=== PATIENT | male | born 1940 | race Caucasian/White ===

== ENCOUNTER 2016-10-04 05:16 | Day surgery (SDC) | payer MEDICARE ==
[2016-10-04] VITALS (28 sets, daily range): BP systolic 115–170; BP diastolic 51–80; PULSE 50–76; RESP 10–18; Ht 165.1 cm; Wt 63.6 kg
[~2016-10-04] VITALS: Ht 165.1 cm; Wt 63.6 kg
[~2016-10-04 05:16] MED LIST: ASPI-535 PO; FENO160T13 PO; TERA10CA42 PO
[2016-10-04] MEDS ORDERED: SOD CHLORIDE 0.9% 1,000 ML IV SCH ×2 (06:00→08:10)
[2016-10-04] MEDS ORDERED: IODIXANOL LOCM 100 ML BTL ONE (06:11)
[2016-10-04] MEDS ORDERED: LIDOCAINE 1% (MDV) 20 ML INJ ONE (06:11)
[2016-10-04] MEDS ORDERED: MIDAZOLAM 1 MG/ML 2 ML INJ ONE (06:12)
[2016-10-04] MEDS ORDERED: FENTAnyl 50 MCG/ML VIAL ONE (06:13)
[2016-10-04] MEDS ORDERED: NIAC500T81 PO (06:14)
[2016-10-04] MEDS ORDERED: PANT40TA4 PO (06:14)
[2016-10-04] MEDS ORDERED: OMEG-124 PO (06:14)
[2016-10-04] MEDS ORDERED: METO-448 PO (06:14)
[2016-10-04] MEDS ORDERED: LEVO88TA PO (06:14)
[2016-10-04 06:17] LABS: ADD SCAN DIFF NO
[2016-10-04 06:20] LABS: BASOPHILS % 0.4 % (0.0-2.0); EOSINOPHILS # 0.2 10^3/ul (0.0-0.5); EOSINOPHILS % 3.6 % (0.0-7.0); HEMATOCRIT 41.9 % (42.0-52.0); HEMOGLOBIN 14.2 g/dl (14.0-18.0); LYMPHOCYTES # 2.3 10^3/ul (0.8-2.9); LYMPHOCYTES % 34.3 % (15.0-51.0); MEAN CORPUSCULAR HEMOGLOBIN 30.9 pg (29.0-33.0); MEAN CORPUSCULAR HGB CONC 33.9 g/dl (32.0-37.0); MEAN CORPUSCULAR VOLUME 91.1 fl (82.0-101.0); MEAN PLATELET VOLUME 11.7 fl (7.4-10.4); MONOCYTE # 0.4 10^3/ul (0.3-0.9); MONOCYTES % 5.2 % (0.0-11.0); NEUTROPHIL # 3.8 10^3/ul (1.6-7.5); NEUTROPHILS % 56.4 % (39.0-77.0); PLATELET COUNT 142 10^3/UL (140-415); RED CELL DISTRIBUTION WIDTH 13.4 % (11.5-14.5); WHITE BLOOD COUNT 6.8 10^3/ul (4.8-10.8)
[2016-10-04 06:38] LABS: INR 1.05; PROTIME 13.7 Sec (12.2-14.2); PT RATIO 1.1
[2016-10-04 06:39] LABS: PARTIAL THROMBOPLASTIN TIME 29.5 Sec (25.0-35.0)
[2016-10-04 06:51] LABS: POTASSIUM 3.6 mmol/L (3.5-5.1)
[2016-10-04 06:52] LABS: CALCIUM 8.9 mg/dl (8.4-10.2); CREATININE 0.68 mg/dl (0.61-1.24)
[2016-10-04 07:52] LABS: CHOL/HDL RATIO 5.7 RATIO
[2016-10-04] MEDS ORDERED: ACETAMINOPHEN 325 MG TAB PO PRN (08:30)
[2016-10-04] MEDS ORDERED: ONDANSETRON 4 MG INJ IV PRN (08:30)
[2016-10-04] MEDS ORDERED: morphine 2 MG INJ IV PRN (08:30)
[2016-10-04] MEDS ORDERED: REGADENOSON 0.4 MG/5 ML SYG ONE (12:43)
--- NOTE | 2016-10-04 15:06 | CONS ---
Date/Time of Note Date/Time of Note DATE: 10/04/16 TIME: 15:03 Assessment/Plan Assessment/Plan Chief Complaint/Hosp Course Peripheral vascular disease Problems: Additional Assessment/Plan Patient has peripheral vascular disease with claudication of the right lower extremity patient has severe superficial femoral artery stenosis/occlusion bilaterally to be needing femoral-popliteal/pedal bypass grafting after cardiology clearance discussed with Dr. Salazar that will follow up as an outpatient Consultation Date/Type/Reason Admit Date/Time Date of Consultation: Oct 04, 2016 Hx of Present Illness This is a 75-year-old male with a history of peripheral vascular disease diabetes complaining of claudication in the right calf for walking after 1 block Respiratory: no complaints Cardiovascular: no complaints Gastrointestinal: no complaints Genitourinary: no complaints Musculoskeletal: no complaints Skin: no complaints Past Medical History Medical History: coronary artery disease, diabetes Family History Significant Family History: heart disease, COPD, diabetes Social History Alcohol Use: none Smoking Status: Never smoker Drug Use: none Exam/Review of Systems Vital Signs Vitals Vital Signs Date Time Temp Pulse Resp B/P Pulse Ox O2 Delivery O2 Flow Rate FiO2 10/04/16 14:05 97.9 76 18 170/74 99 Room Air Exam Eyes: EOMI, PERRL, nl conjunctiva, nl lids, nl sclera ENMT: nl external ears & nose, nl lips & teeth, nl nasal mucosa & septum Neck: non-tender, supple Respiratory: clear to auscultation, normal air movement Cardiovascular: nl pulses, regular rate and rhythm Gastrointestinal: nl liver, spleen, non-tender, soft Additional Comments Patient has femoral pulses bilaterally no popliteal or pedal pulses palpable Results Result Diagram: 10/04/16 0605 10/04/16 0605 Results 24 hrs Laboratory Tests Test 10/04/16 06:05 White Blood Count 6.8 Red Blood Count 4.60 L Hemoglobin 14.2 Hematocrit 41.9 L Mean Corpuscular Volume 91.1 Mean Corpuscular Hemoglobin 30.9 Mean Corpuscular Hemoglobin Concent 33.9 Red Cell Distribution Width 13.4 Platelet Count 142 Mean Platelet Volume 11.7 H Neutrophils % 56.4 Lymphocytes % 34.3 Monocytes % 5.2 Eosinophils % 3.6 Basophils % 0.4 Nucleated Red Blood Cells % 0.0 Neutrophils # 3.8 Lymphocytes # 2.3 Monocytes # 0.4 Eosinophils # 0.2 Basophils # 0.0 Nucleated Red Blood Cells # 0.0 Prothrombin Time 13.7 Prothrombin Time Ratio 1.1 INR International Normalized Ratio 1.05 Activated Partial Thromboplast Time 29.5 Sodium Level 147 H Potassium Level 3.6 Chloride Level 106 Carbon Dioxide Level 27 Anion Gap 18 H Blood Urea Nitrogen 21 H Creatinine 0.68 Glucose Level 95 Calcium Level 8.9 Triglycerides Level 111 Cholesterol Level 200 LDL Cholesterol, Calculated 143 HDL Cholesterol 35 Cholesterol/HDL Ratio 5.7 Medications Medications Current Medications Acetaminophen (Tylenol Tab) 650 mg Q4H PRN PO NON-CARDIAC PAIN LEVEL (1-3); Start 10/04/16 at 08:30 Morphine Sulfate (morphine) 2 mg Q2H PRN IV FOR NON CARDIAC PAIN (4-10); Start 10/04/16 at 08:30 Ondansetron HCl (Zofran Inj) 4 mg Q4H PRN IV NAUSEA AND/OR VOMITING; Start at 08:30 ISACC JAMES MD Oct 04, 2016 15:06
--- NOTE | 2016-10-04 16:13 | RADRPT ---
PROCEDURE: Lexiscan myocardial perfusion study CLINICAL INDICATION: 75 -year-old patient complaining of chest pain. TECHNIQUE: Lexiscan 0.4 mg intravenously separate acquisition gated myocardial perfusion SPECT usi ng Tc 99m Myoview 30.2 mCi intravenously at stress and Tc-99m Myoview, 10.4 mCi intravenously at res t was performed using the rest/stress sequence. Poststress Myoview SPECT images were obtained in th e supine position. COMPARISON: No prior studies. FINDINGS: Perfusion images reveal a small to moderate size moderate in degree nonreversible perfusion defect i n the inferoapical and inferior blank. There is no evidence of stress-induced ischemia. Lexiscan post stress gated SPECT images demonstrate no wall motion abnormalities. IMPRESSION: 1. The type and distribution of the scintigraphic abnormalities are most consistent with a small to moderate-sized nonreversible perfusion defect in the inferoapical and inferior blank. 2. No wall motion abnormalities. 3. The left ventricle ejection fraction at stress is greater than 70%. A call report was made to Dr. Salazar at 04:10 p.m. on October 04, 2016. RPTAT: HH .Jessi Ariza MD, MD Date Time Electronically viewed and signed by .Jessi Ariza MD, MD on 10/04/2016 16:13 .L/
--- NOTE | 2016-10-12 06:08 | OPR ---
DATE OF OPERATION: 10/04/2016 PROCEDURE PERFORMED: 1. Left femoral artery catheter placement. 2. Left femoral angiogram. 3. Bilateral lower extremity angiogram and runoff. 4. Right femoral angiogram. 5. Conscious sedation for more than 60 minutes. SURGEON: Chele Salazar MD INDICATIONS: This is a pleasant 75-year-old gentleman with known peripheral vascular disease who presented with severe claudication. The patient was advised to undergo bilateral lower extremity angiogram and possible intervention. OPERATIVE FINDINGS AT SURGERY: 1. Left iliac artery has about 40 percent stenosis. 2. Left SFA has a long area of complete occlusion with collaterals to it. 3. A 1-2 vessel runoff is noted below the knee. 4. Right iliac artery appeared to be patent. 5. Right SFA is 100 percent occluded with a long lesion, reconstituted above the knee. This appeared to be 2-vessel runoff noted throughout the leg with probably 90 percent stenosis noted in the posterior tibial. DESCRIPTION OF PROCEDURE: Informed consent was obtained after risks and benefits discussed with the patient. The risks and benefit include infection, vascular complications, bleeding complications discussed with the patient along with the risk of left femoral artery. Left femoral angiogram was performed. Then the Omniflush was advanced to the abdominal aorta. Through that, bilateral lower extremity runoff was obtained. Then we used a trauma wire Omniflush which was advanced from the left into the right iliac artery. Angiograms of iliac artery and femoral artery with lower extremity runoff was obtained. The catheters were removed. the patient tolerated the procedure without complication. The patient was transferred to the recovery room in stable condition. COMPLICATIONS: None. IMPRESSION: Bilateral superificial femoral artery complete occlusion. Recommend vascular surgery evaluation for open revascularization. Dictated By: Chele Salazar MD /oscar/lilibeth /Document#: [id number]
== END 2016-10-04 16:05 | disposition home or self-care (01) ==
LOC: SDS 05:16
PROVIDERS: ATTEND Internal Medicine Interventional Cardiology
DX: I73.9 Peripheral vascular disease, unspecified (principal); I10 Essential (primary) hypertension; E78.5 Hyperlipidemia, unspecified; Z79.82 Long term (current) use of aspirin
CPT/HCPCS: 36245; 75630; 78452; 80048; 80061; 85025; 85610; 85730; 93017; A9500; A9505; C1769; C1887; C1894; J1644; J2250; J2785; J3010; Q9967

== ENCOUNTER 2016-11-13 11:00 | Inpatient (IN) | payer MEDICARE ==
[~2016-11-13] VITALS: Ht 167.6 cm; Wt 65.0 kg
[2016-11-13] VITALS (20 sets, daily range): BP systolic 122–173; BP diastolic 52–130; PULSE 61–83; RESP 15–24; TEMP 98.5; Ht 167.6 cm; Wt 65.0 kg
[~2016-11-13 11:00] MED LIST changes: +LEVO88TA PO; +METO-448 PO; +NIAC500T81 PO; +OMEG-124 PO; +PANT40TA4 PO
--- NOTE | 2016-11-13 11:23 | RADRPT ---
PROCEDURE: CT head without intravenous contrast CLINICAL INDICATION: Stroke. Right-sided dysarthria and facial droop. COMPARISON: None relevant listed. TECHNIQUE: Axial CT images from skull base to vertex with coronal and sagittal reformats. DOSE: The estimated administered radiation dose was CTDI vol = 43 mGy. DLP = 720 mGy-cm. One or mor e of the following dose reduction techniques were used: automated exposure control, adjustment of th e mA and/or kV according to patient size, or use of iterative reconstruction. FINDINGS: Parenchyma: No acute hemorrhage, large territorial infarction, or mass. Old appearing hypodensity wi thin the posterior limb right external capsule/anterior thalamus. Mild amount of periventricular and subcortical white matter hypodensity, a nonspecific finding often associated with chronic microangi opathy. Ventricles: No ventriculomegaly or ventricular effacement. Extra-axial spaces: No herniation or midline shift. Paranasal sinuses: Clear. Mastoids and middle ears: Clear. Visualized orbits: Normal. Vessels: Mild calcified atherosclerotic arterial plaque. Bones: Normal. Extracranial soft tissues: Normal. Additional comment: None. IMPRESSION: 1. No acute hemorrhage or large territorial infarction identified. 2. Old lacunar infarction involving the posterior limb of the right internal capsule. If there is high clinical suspicion for acute infarction, MRI is recommended for further evaluation because it is a more sensitive examination. Jason Chavez M.D. discussed findings with RAF PERRY M.D. via telephone at 11:22 AM on 11/14/19 17 with read back confirmation. RPTAT: PP Physician Ivana Date Time Electronically viewed and signed by Physician Ivana on 11/13/2016 11:23 /
[2016-11-13 11:28] LABS: BASOPHILS % 0.3 % (0.0-2.0); EOSINOPHILS # 0.1 10^3/ul (0.0-0.5); EOSINOPHILS % 0.8 % (0.0-7.0); HEMATOCRIT 42.6 % (42.0-52.0); LYMPHOCYTES # 1.2 10^3/ul (0.8-2.9); LYMPHOCYTES % 13.5 % (15.0-51.0); MEAN CORPUSCULAR HEMOGLOBIN 31.4 pg (29.0-33.0); MEAN CORPUSCULAR HGB CONC 35.2 g/dl (32.0-37.0); MEAN CORPUSCULAR VOLUME 89.3 fl (82.0-101.0); MEAN PLATELET VOLUME 11.1 fl (7.4-10.4); MONOCYTE # 0.2 10^3/ul (0.3-0.9); MONOCYTES % 2.6 % (0.0-11.0); NEUTROPHILS % 82.3 % (39.0-77.0); PLATELET COUNT 151 10^3/UL (140-415); RED BLOOD COUNT 4.77 10^6/ul (4.70-6.10); RED CELL DISTRIBUTION WIDTH 13.2 % (11.5-14.5); WHITE BLOOD COUNT 8.7 10^3/ul (4.8-10.8)
--- NOTE | 2016-11-13 11:34 | ERA ---
ER Documentation Chief Complaint Date/Time DATE: 11/13/16 TIME: 11:16 Chief Complaint WALKED IN TRIAGE WITH RT SIDE WEAKNESS LAST WELL TIME 1 1/2 HOUR MEDICAL RECORDS CUSTODIAN HPI This is a 76-year-old male with a history of hypertension on blood pressure medications and aspirin who is presenting with concerns of a stroke. Approximately 1-1/2 hours ago, the patient developed a right-sided facial droop , mild dysarthria and decreased sensation to the right face and right arm. The patient feels like he is unable to control his right arm and that it is weaker. The patient denies any symptoms to the left side of his body. He does not have any symptoms in his right leg. The patient is alert and oriented 4. He does not have a history of heart attack or stroke. ROS All systems reviewed and are negative except as per history of present illness. Medications Home Meds Reported Medications Levothyroxine Sodium* (Levothyroxine Sodium*) 88 Mcg Tablet, 88 MCG PO BEFORE BREAKFAST, #30 TAB 11/13/16 Atorvastatin* (Atorvastatin*) 40 Mg Tablet, 40 MG PO QHS, #30 TAB 11/13/16 Finasteride* (Finasteride*) 5 Mg Tablet, 5 MG PO DAILY, TAB 11/13/16 Allopurinol* (Allopurinol*) 100 Mg Tablet, 100 MG PO BID, TAB 11/13/16 Herreid-3 Fatty Acids/Fish Oil (Fish Oil Conc 1,000 mg Softgel) 1 Each Capsule, 1 EACH PO DAILY, CAP 11/13/16 Pantoprazole (Protonix) 40 Mg Tabec, 40 MG PO BID, TAB 10/04/16 Niacin* (Niacin*) 500 Mg Tablet, 500 MG PO DAILY, TAB 10/04/16 Metoprolol Tartrate* (Lopressor*) 25 Mg Tab, 25 MG PO BID, #60 TAB 10/04/16 Aspirin Ec (Aspir 81) 81 Mg Tablet.dr, 81 MG PO DAILY 08/05/11 Discontinued Reported Medications Herreid-3S/Dha/Epa/Fish Oil (Fish Oil 1,200 mg Softgel) 1 Each Capsule, 1 EACH PO , CAP 10/04/16 Terazosin Hcl* (Terazosin Hcl*) 10 Mg Capsule, 10 MG PO BID 08/05/11 Fenofibrate, Micronized* (Fenofibrate*) 160 Mg Tablet, 160 MG PO DAILY 08/05/11 Allergies Allergies: Coded Allergies: Sulfa (Sulfonamide Antibiotics) (Verified Allergy, Unknown, 10/04/16) PMhx/Soc History of Surgery: Yes (lt eye surgery 50 yrs. ago, prostate surgery,lt elbow surgery) Anesthesia Reaction: No Hx Neurological Disorder: No Hx Respiratory Disorders: No Hx Cardiac Disorders: Yes (HTN) Hx Psychiatric Problems: No Hx Miscellaneous Medical Probl: Yes (claudication lower extremities) Hx Alcohol Use: No Hx Substance Use: No Hx Tobacco Use: No FmHx Family History: No diabetes Physical Exam Vitals Vital Signs Date Time Temp Pulse Resp B/P Pulse Ox O2 Delivery O2 Flow Rate FiO2 11/13/16 14:30 80 20 150/75 100 Nasal Cannula 2.0 11/13/16 14:15 78 20 161/60 100 Nasal Cannula 2.0 11/13/16 14:00 76 20 154/63 100 Nasal Cannula 2.0 11/13/16 13:45 66 16 143/55 100 Nasal Cannula 2.0 11/13/16 13:35 74 16 150/65 100 Nasal Cannula 2.0 11/13/16 13:15 88 20 148/82 100 Nasal Cannula 2.0 11/13/16 13:00 85 20 144/64 100 Nasal Cannula 2.0 11/13/16 12:45 70 22 149/82 100 Nasal Cannula 2.0 11/13/16 12:30 76 18 155/62 99 Room Air 11/13/16 12:15 77 18 153/61 99 Room Air 11/13/16 12:00 74 18 145/60 99 Room Air 11/13/16 11:58 78 16 148/63 99 Room Air 11/13/16 11:23 96 16 185/66 99 Room Air 11/13/16 11:09 106 16 185/66 100 Physical Exam Const: No apparent distress Head: Atraumatic Eyes: Normal Conjunctiva ENT: Normal External Ears, Nose and Mouth. Neck: Full range of motion..~ No meningismus. Resp: Clear to auscultation bilaterally Cardio: Regular rate and rhythm, no murmurs Abd: Soft, non tender, non distended. Normal bowel sounds Skin: No petechiae or rashes Back: No midline or flank tenderness Ext: No cyanosis, or edema Neur: Awake and alert,Oriented 4, mild dysarthria, mild loss of right nasolabial fold, decreased sensation to the right arm, dysdidokinesis ( inability to perform [id number] on right), difficulty following commands with the right arm but intermittently will exhibit 5 out of 5 strength. Neurovascularly intact in all other extremities, able to identify objects, drift to the right arm, neglect to RUE Psych: Normal Mood and Affect Result Diagram: 11/13/16 1100 11/13/16 1100 Results 24 hrs Laboratory Tests Test 11/13/16 11:00 White Blood Count 8.710^3/ul Red Blood Count 4.7710^6/ul Hemoglobin 15.0g/dl Hematocrit 42.6% Mean Corpuscular Volume 89.3fl Mean Corpuscular Hemoglobin 31.4pg Mean Corpuscular Hemoglobin Concent 35.2g/dl Red Cell Distribution Width 13.2% Platelet Count 87446^3/UL Mean Platelet Volume 11.1fl Neutrophils % 82.3% Lymphocytes % 13.5% Monocytes % 2.6% Eosinophils % 0.8% Basophils % 0.3% Nucleated Red Blood Cells % 0.0/100WBC Neutrophils # (Manual) 7.210^3/ul Lymphocytes # 1.210^3/ul Monocytes # 0.210^3/ul Eosinophils # 0.110^3/ul Basophils # 0.010^3/ul Nucleated Red Blood Cells # 0.010^3/ul Prothrombin Time 13.6Sec Prothrombin Time Ratio 1.1 INR International Normalized Ratio 1.04 Activated Partial Thromboplast Time 28.5Sec Sodium Level 146mmol/L Potassium Level 3.8mmol/L Chloride Level 105mmol/L Carbon Dioxide Level 24mmol/L Anion Gap 21 Blood Urea Nitrogen 12mg/dl Creatinine 0.65mg/dl Glucose Level 149mg/dl Hemoglobin A1c 5.6% Calcium Level 9.1mg/dl Troponin I < 0.012ng/ml Current Medications Medications (Trade) Dose Ordered Sig/Mac Route PRN Reason Start Time Stop Time Status Last Admin Dose Admin Alteplase, Recombinant (Activase) 5.5 mg BOLUS OVER 1 MIN ONCE IV* 11/13/16 14:30 11/13/16 14:31 DC 11/13/16 11:58 Alteplase, Recombinant 49.5 mg 49.5 mg ISCHEMIC STROKE ONCE IV* 11/13/16 14:30 11/13/16 14:31 DC 11/13/16 11:59 Sodium Chloride (NS) 50 ml @ 0 mls/hr FLUSH AFTER TPA ONCE IV 11/13/16 14:30 11/13/16 14:31 DC Procedures/MDM The patient's presenting with concerns of a stroke. I initially gave his NIH stroke scale at 6. A code stroke was called and the patient was emergently taken to the CAT scan. The neuroradiologist called me and reported an old lacunar infarct on the right side but no obvious infarction on the left. The report is as follows: PROCEDURE: CT head without intravenous contrast CLINICAL INDICATION: Stroke. Right-sided dysarthria and facial droop. COMPARISON: None relevant listed. FINDINGS: Parenchyma: No acute hemorrhage, large territorial infarction, or mass. Old appearing hypodensity within the posterior limb right external capsule/anterior thalamus. Mild amount of periventricular and subcortical white matter hypodensity, a nonspecific finding often associated with chronic microangiopathy. Ventricles: No ventriculomegaly or ventricular effacement. Extra-axial spaces: No herniation or midline shift. Paranasal sinuses: Clear. Mastoids and middle ears: Clear. Visualized orbits: Normal. Vessels: Mild calcified atherosclerotic arterial plaque. Bones: Normal. Extracranial soft tissues: Normal. Additional comment: None. IMPRESSION: 1. No acute hemorrhage or large territorial infarction identified. 2. Old lacunar infarction involving the posterior limb of the right internal capsule. Jason Chavez M.D. discussed findings with RAF PERRY M.D. via telephone at 11:22 AM on 11/13/2016 with read back confirmation. Physician Ivana Date Time Electronically viewed and signed by Physician Ivana on 11/13/2016 11: 23 Neurology was consulted to evaluate the patient. Through a tele-neurology consult, he feels that the NIH stroke scale is at 7 and that he is a TPA candidate based on his history and presentation. The patient was consented for TPA and it was initiated. The patient's blood work was obtained and reviewed. The patient's CBC, BMP, troponin, hemoglobin A1c and coags are unremarkable. EKG read by me: Rate/Rhythm: Regular rate and rhythm at a rate of 98 Intervals: Normal [place]: Normal Impression: No evidence of ischemia or arrhythmia. Normal EKG The patient's chest x-ray revealed the following: PROCEDURE: Chest radiograph CLINICAL INDICATION: Possible Stroke. COMPARISON: None relevant listed. TECHNIQUE: Single frontal chest radiograph. FINDINGS: The lungs are clear. No pleural effusion or focal parenchymal opacity. The cardiomediastinal silhouette is normal. No suspicious bone lesion. IMPRESSION: No acute cardiopulmonary abnormality. Physician Ivana Date Time Electronically viewed and signed by Physician Ivana on 11/13/2016 12: 52 The patient's blood pressure was initially 185/66. There was recycled with a systolic blood pressure in the 160 range. I do not feel that he requires emergent blood pressure management at this time. During evaluation, the patient's dysarthria and numbness did start to get worse. The patient's TPA was stopped and a repeat CT was obtained that did not reveal any significant changes. The TPA was resumed to completion. The patient 's symptoms actually started to improve and the emergency department The patient will require ICU admission for further evaluation and management, which will include serial neuro checks and further imaging studies. The patient will be admitted to the hospitalist service for further evaluation and management. An MRI will likely be required during inpatient evaluation. In discussion with the neurologist multiple times, there is no indication to get it emergently completed in the emergency department, but it should be done in the hospital. Departure Diagnosis: Primary Impression: CVA (cerebral vascular accident) Qualified Code: I63.9 - Cerebrovascular accident (CVA), unspecified mechanism Additional Impressions: Right arm weakness Dysdiadochokinesis on examination Condition: Serious RAF PERRY MD Nov 13, 2016 11:29
[2016-11-13 12:00] LABS: ANION GAP 21 (8-16); BLOOD UREA NITROGEN 12 mg/dl (7-20); CALCIUM 9.1 mg/dl (8.4-10.2); CARBON DIOXIDE 24 mmol/L (21-31); CHLORIDE 105 mmol/L (97-110); CREATININE 0.65 mg/dl (0.61-1.24); GLUCOSE 149 mg/dl (70-220); POTASSIUM 3.8 mmol/L (3.5-5.1); SODIUM 146 mmol/L (135-144)
[2016-11-13 12:04] LABS: INR 1.04; PROTIME 13.6 Sec (12.2-14.2); PT RATIO 1.1
[2016-11-13 12:05] LABS: PARTIAL THROMBOPLASTIN TIME 28.5 Sec (25.0-35.0)
[2016-11-13 12:23] LABS: TROPONIN-I < 0.012 ng/ml (0.00-0.12)
[2016-11-13] MEDS ORDERED: OMEG1CAP22 PO (12:47)
[2016-11-13] MEDS ORDERED: ALLO100T PO (12:48)
[2016-11-13] MEDS ORDERED: FINA5TAB4 PO (12:48)
[2016-11-13] MEDS ORDERED: ATOR40TA68 PO (12:49)
[2016-11-13] MEDS ORDERED: LEVO88TA3 PO (12:49)
--- NOTE | 2016-11-13 12:53 | RADRPT ---
PROCEDURE: Chest radiograph CLINICAL INDICATION: Possible Stroke. COMPARISON: None relevant listed. TECHNIQUE: Single frontal chest radiograph. FINDINGS: The lungs are clear. No pleural effusion or focal parenchymal opacity. The cardiomediastinal silhouette is normal. No suspicious bone lesion. IMPRESSION: No acute cardiopulmonary abnormality. RPTAT: HLG Physician Ivana Date Time Electronically viewed and signed by Jourdan Chavez Physician on 11/13/2016 12:52 LG/
--- NOTE | 2016-11-13 13:35 | RADRPT ---
PROCEDURE: CT brain without contrast CLINICAL INDICATION: Stroke, post t-PA TECHNIQUE: CT of the brain without contrast performed on a multidetector CT scanner, with multiplan ar reformats. One or more of the following dose reduction techniques were used: Automated exposure control, adjustment in mA and / or kV according to patient size, use of iterative reconstructive luca hnique. CTDIvol = 42 mGy; DLP = 720 mGy-cm. COMPARISON: CT brain 11/13/2016 FINDINGS: No acute intracranial hemorrhage is identified. No extra-axial fluid collection is seen. There is no mass effect. No midline shift is identified. The ventricles and sulci are mildly enlarged compatible with volume loss. Chronic appearing lacunar infarct is again identified at the posterior limb of the right internal ca psule/thalamus. There are mild areas of hypodensity in the periventricular - deep white matter whic h are nonspecific but suggestive of chronic small vessel ischemic changes. Allen-white differentiati on is otherwise grossly preserved. Atherosclerotic calcifications of the proximal intracranial arteries are noted. Osseous structures are unremarkable. Mastoid air cells and imaged paranasal sinuses grossly clear. IMPRESSION: 1. No acute intracranial pathology identified. Consider follow up with MRI. 2. Chronic-appearing posterior limb of right internal capsule/thalamic lacunar infarct. 3. Mild volume loss, with mild chronic small vessel ischemic changes. RPTAT: HH .Fransisco Rosenbaum MD, MD Date Time Electronically viewed and signed by .Fransisco Rosenbaum MD, MD on 11/13/2016 13:35 .O/
[2016-11-13] MEDS ORDERED: ALTEPLASE (tPA) 1 MG/ML BOLUS SYG IV* ONE (14:30)
[2016-11-13] MEDS ORDERED: SOD CHLORIDE 0.9% 50 ML IV ONE (14:30)
[2016-11-13] MEDS ORDERED: ALTEPLASE 100 MG INJ IV* ONE (14:30)
[2016-11-13] MEDS ORDERED: ACETAMINOPHEN 325 MG TAB PO PRN (15:30)
[2016-11-13 15:44] LABS: ADD UMIC NO; UR ASCORBIC ACID NEGATIVE (NEGATIVE); UR BILIRUBIN (Dip) NEGATIVE (NEGATIVE); UR BLOOD (Dip) NEGATIVE (NEGATIVE); UR CLARITY CLEAR (CLEAR); UR COLOR YELLOW (YELLOW); UR GLUCOSE (Dip) NEGATIVE (NEGATIVE); UR KETONES (Dip) 1+ mg/dL (NEGATIVE); UR LEUKOCYTE ESTERASE (Dip) NEGATIVE Leu/ul (NEGATIVE); UR NITRITE (Dip) NEGATIVE (NEGATIVE); UR SPECIFIC GRAVITY (Dip) 1.013 (1.003-1.030); UR TOTAL PROTEIN (Dip) NEGATIVE (NEGATIVE); UR UROBILINOGEN (Dip) NEGATIVE (NEGATIVE)
[2016-11-13 16:05] LABS: BARBITURATES Negative (NEGATIVE); BENZODIAZEPINES Negative (NEGATIVE); CANNABINOIDS Negative (NEGATIVE); COCAINE Negative (NEGATIVE); OPIATES Negative (NEGATIVE)
--- NOTE | 2016-11-13 16:33 | RADRPT ---
PROCEDURE: MRI Brain without contrast. CLINICAL INDICATION: Stroke status post t-PA TECHNIQUE: An MRI of the brain was performed on a high resolution hi-definition MRI scanner utiliz ing the following sequences: Sagittal and axial T1 weighted, axial T2 weighted, axial T2 FLAIR axial diffusion weighted with ADC mapping, and coronal GRE. COMPARISON: CT brain 11/13/2016 FINDINGS: The scalp and calvarium are normal. The bilateral orbits are normal. The bilateral paranasal sinuse s are remarkable for mild chronic bilateral ethmoid and maxillary sinus disease. Incomplete pneumat ization of the bilateral mastoid air cells are noted. The bilateral middle ear cavities appear mary jane r. Restricted diffusion is noted in the left thalamus, left thalami capsular junction, and the left occ ipital lobe with involvement of the left para hippocampal gyrus. This is compatible with an acute h emorrhagic infarct. No evidence for hypointensity on GRE sequences are noted to suggest hemorrhage o r hemoglobin degradation by-products. The ventricles sulci and cisterns are age appropriate compatible with mild chronic microvascular isc hemic disease. On the FLAIR and T2-weighted sequences, punctate foci of hyperintensity are present in the bilateral centrum semiovale, bilateral periventricular white matter, bilateral thalami compat ible with mild chronic microvascular ischemic disease and chronic bilateral thalamic lacunar infarct s superimposed on above described acute infarcts. signal abnormalities are seen on the GRE images t o suggest the presence of blood degradation products. Normal flow voids are visible in the proxi mal intracranial arteries and dural sinuses, indicating patency. IMPRESSION: 1. Acute non hemorrhagic infarcts in the left thalamus, left thalami capsular junction, left occipit al lobe and para hippocampal gyrus. 2. Chronic bilateral thalamic lacunar infarcts and chronic mild microvascular ischemic disease 3. Mild diffuse volume loss. 4. Mild chronic bilateral ethmoid maxillary sinus disease. A call report was made to ER Dr. Cholo Chang at 11/13/2016 4:31:21 PM following the completion of th e examination by the undersigned. RPTAT: HDC .Lorraine Babin MD, Date Time Electronically viewed and signed by .Lorraine Babin MD, on 11/13/2016 16:33 .C/
--- NOTE | 2016-11-13 16:36 | EN ---
Date/Time of Note Date/Time of Note DATE: 11/13/16 TIME: 16:35 ER Progress Note The patient had an MRI in the emergency department while he was waiting for an ICU bed. The neuroradiologist called the emergency department and informed us that he has an acute left thalamic and left occipital nonhemorrhagic infarct. This study was performed status post TPA. The hospitalist was informed of this information. RAF PERRY MD Nov 13, 2016 16:36
--- NOTE | 2016-11-13 16:40 | RADRPT ---
PROCEDURE: MRA Brain. CLINICAL INDICATION: Stroke status post t-PA TECHNIQUE: An MRA of the brain was performed on a GE blinkbox music-definition 3.0 ryan scanner 3-D time-of-f light MR angiography technique. Source and MIP images were reviewed. COMPARISON: Brain CT dated 11/13/2016 and brain MRI same date FINDINGS: The internal carotid arteries are patent and normal in caliber. The middle cerebral and the anterio r cerebral arteries are also patent and normal in caliber with no significant luminal irregularity o r narrowing identified. The vertebral arteries, basilar artery, and superior cerebellar arteries ar e visualized and normal in appearance. The left vertebral artery is dominant. The right vertebral artery is not visualized. The posterior cerebral arteries are patent and normal in appearance bilate rally. Distally, approximately fourth and fifth order branches of the left posterior cerebral presley ry multiple segmental occlusions or high-grade stenoses are noted. No aneurysms are detected. IMPRESSION: 1. No evidence for acute thrombus or hemodynamically significant stenosis in the proximal anterior middle or posterior cerebral arteries. 2. Distal left fourth and fifth order posterior cerebral artery branch vasospasm or high-grade sten oses are present. RPTAT: HDC .Lorraine Babin MD, Date Time Electronically viewed and signed by .Lorraine Babin MD, on 11/13/2016 16:40 .C/
--- NOTE | 2016-11-13 17:23 | HP ---
Date/Time of Note Date/Time of Note DATE: 11/13/16 TIME: 16:56 Assessment/Plan VTE Prophylaxis VTE Prophylaxis Intervention: LMWH Assessment/Plan Chief Complaint/Hosp Course 76 yo male wiht h/o hypertension, BPH who presents with acute ischemic stroke of left thalamus, left thalami capsular junction, left occipital lobe and para hippocampal gyrus causing RUE ataxia, heminopsia and dysarthria Ischemic stroke: - Needs a cerebrovascular evaluation, carotid duplex - TTE - Telemetry for rhythm monitoring, outpatient prison monitor if needed - Lipids, A1C - Continue aspirin starting tomorrow - Swallow evaluation, NPO for now - IV NS 75 cc/hr maintenance Hypertension: - Hold home meds for now - PRN labetalol if SBP > 180 given s/p TPA BPH: - Continue finasteride ICU care x 24 hours Problems: HPI/ROS Admit Date/Time Admit Date/Time Hx of Present Illness 76 yo male with h/o hypertension and BPH who presents with acute onset or RUE weakness and vision impairment. Was in [facility] until this AM. During sexual intercourse with his developed these symptoms acutely, about 9 AM. Called 911, came to ED. Initial head CT negative. TPA was given. MRI shows posterior ischemic infarct. Currently with stable symptoms. Has dysarthria, RUE weakness/poor control, and R sided vision loss. PMH/Family/Social Past Medical History Medical History: hypertension Past Surgical History Past Surgical Hx: noncontributory Social History Alcohol Use: none Drug Use: none Exam/Review of Systems Vital Signs Vitals Vital Signs Date Time Temp Pulse Resp B/P Pulse Ox O2 Delivery O2 Flow Rate FiO2 11/13/16 16:51 98.5 78 18 150/56 99 Room Air Nasal Cannula 11/13/16 16:30 2.0 Exam Exam Comfortable appearing, alert, oriented Obvious dysarthria Pupils reactive CN otherwise intact RUE with marked ataxia on FNF, strength 4/5 in hand/elbow Right sided b/l hemianopsia present Clear lungs Normal heart sounds No edema Labs Result Diagram: 11/13/16 1100 11/13/16 1100 Medications Medications Current Medications Allopurinol (Zyloprim) 100 mg BID PO ; Start 11/13/16 at 21:00 Aspirin (Halfprin) 81 mg DAILY PO ; Start 11/14/16 at 09:00 Atorvastatin Calcium (Lipitor) 40 mg QHS PO ; Start 11/13/16 at 21:00 Finasteride (Proscar) 5 mg DAILY PO ; Start 11/14/16 at 09:00 Metoprolol Tartrate (Lopressor) 25 mg BID PO ; Start 11/13/16 at 21:00 Pantoprazole (Protonix Tab) 40 mg BID PO ; Start 11/13/16 at 21:00 Acetaminophen (Tylenol Tab) 650 mg Q4H PRN PO Temp greater than 99.6F; Start at 15:30 MABLE CONNOR MD Nov 13, 2016 17:06
[2016-11-13] MEDS ORDERED: LABETALOL HCL 20MG INJ IV PRN (17:30)
[2016-11-13] MEDS: SOD CHLORIDE 0.9% 1,000 ML IV SCH (18:30)
--- NOTE | 2016-11-13 19:24 | STROKE ---
Date/Time of Note Date/Time of Note DATE: 11/13/16 TIME: 21:21 Patient Information General Patient location: emergency Arrival Date Onset Time: 09:30 Age 76 Gender male Weight 65 kg Clinical Presentation 76 YO M with acute onset of right face/arm/leg "paralysis" at 0930 today Vital Signs Vital Signs Vital Signs Date Time Temp Pulse Resp B/P Pulse Ox O2 Delivery O2 Flow Rate FiO2 11/13/16 18:45 76 15 144/60 97 Room Air 11/13/16 18:15 99.1 11/13/16 16:30 2.0 Patient History Current Medications Allergies: Coded Allergies: Sulfa (Sulfonamide Antibiotics) (Verified Allergy, Unknown, 11/13/16) Labs Hematology Labs Hematology Test 11/13/16 11:00 White Blood Count 8.710^3/ul (4.8-10.8) Red Blood Count 4.7710^6/ul (4.70-6.10) Hemoglobin 15.0g/dl (14.0-18.0) Hematocrit 42.6% (42.0-52.0) Mean Corpuscular Volume 89.3fl (82.0-101.0) Mean Corpuscular Hemoglobin 31.4pg (29.0-33.0) Mean Corpuscular Hemoglobin Concent 35.2g/dl (32.0-37.0) Red Cell Distribution Width 13.2% (11.5-14.5) Platelet Count 85731^3/UL (140-415) Mean Platelet Volume 11.1fl (7.4-10.4) Neutrophils % 82.3% (39.0-77.0) Lymphocytes % 13.5% (15.0-51.0) Monocytes % 2.6% (0.0-11.0) Eosinophils % 0.8% (0.0-7.0) Basophils % 0.3% (0.0-2.0) Nucleated Red Blood Cells % 0.0/100WBC (0.0-0.0) Neutrophils # (Manual) 7.210^3/ul (1.7-7.5) Lymphocytes # 1.210^3/ul (0.8-2.9) Monocytes # 0.210^3/ul (0.3-0.9) Eosinophils # 0.110^3/ul (0.0-0.5) Basophils # 0.010^3/ul (0.0-0.1) Nucleated Red Blood Cells # 0.010^3/ul (0.0-0.0) Chemistry Labs Chemistry Test 11/13/16 11:00 Sodium Level 146mmol/L (135-144) Potassium Level 3.8mmol/L (3.5-5.1) Chloride Level 105mmol/L (97-110) Carbon Dioxide Level 24mmol/L (21-31) Anion Gap 21 (8-16) Blood Urea Nitrogen 12mg/dl (7-20) Creatinine 0.65mg/dl (0.61-1.24) Glucose Level 149mg/dl (70-220) Hemoglobin A1c 5.6% (0-5.9) Calcium Level 9.1mg/dl (8.4-10.2) Troponin I < 0.012ng/ml (0.00-0.12) Coagulation Labs: Coagulation Test 11/13/16 11:00 Prothrombin Time 13.6Sec (12.2-14.2) Prothrombin Time Ratio 1.1 INR International Normalized Ratio 1.04 Activated Partial Thromboplast Time 28.5Sec (25.0-35.0) History & Physical History of Present Illness 76 YO M with acute onset of right face/arm/leg "paralysis" at 0930 today NIH Stroke Scale NIH Stroke Scale Total Score: 7 Date/Time Recorded DATE: 11/13/16 TIME: 11:24 Submitted By Eliezer Baer t-PA Imaging Review Imaging Reviewed: Yes Date/Time Imaging Reviewed DATE: 11/13/16 TIME: 21:21 Imaging Findings No ICH t-PA Administration Recommendation: Yes Weight 65 kg Bolus (mg): 5 t-PA Recommendation Date/Time 1128 Recommedation submitted by Eliezer Baer Recommendations Impression Diagnosis 76 YO M with acute onset of right hemiparesis and dysarthria concerning for L basal ganglia vs conley radiata vs pontine stroke. Recommendation for IV tPA given and patient accepts. Patient to be admitted to ICU for further monitoring with plan below. Recommendation Impression and plans were discussed with the patient, family and, separately, with the ER physician. The risks and benefits of the clot busting drug tPA were discussed. This included a 30% increased probability of good outcome at 3 months compared to no treatment with tPA and a 6% greater chance of bleeding into the brain when compared to patients not receiving tPA. Patient's blood pressure will need to be <185/110 in order to be a candidate for TPA. The patient expressed understanding and would like to receive IV tPA. The patient should be admitted for evaluation according to hospital stroke order sets. This may include, if possible, MRI of the brain, MRA of the cervical and intracranial vessels, echocardiogram with bubble study, cardiac telemetry monitoring, PT, OT, Speech Pathology evaluations, LDL, A1c. Stroke risk factors should be evaluated and treated if appropriate. Vital signs and neuro checks should be undertaken every hour for the next 12 hours and, if the patient is stable without progression, every 4 hours thereafter. Venous thromboembolism prophylaxis should be undertaken with SCDs sleeves. No anticoagulation or antiplatelet agents should be given for the first 24 hours after TPA. Short- term treatment of hypertension should be undertaken with nicardipine to maintain blood pressure in a range of systolic <180 systolic and diastolic <110 as clinically appropriate. Unless contraindicated, the patient should be started on a statin as well as sliding scale insulin until the patients glucometer readings are consistently 140-180. Repeat Head CT should be done within 24 hours of IV tPA administration to ensure no interval development of intracerebral hemorrhage. If evidence of ICH, then emergent Neurosurgical consultation will be required. Consultation with a local neurologist is recommended. A loom fixer was used to consent patient for IV tPA - Update at 1245 called re worsening dysarthria. I confirmed with the local ED team that the patient had extremely severe dysarthria when I saw him already (2 points on NIHSSO. Instructed team to get Stat Head CT but to continue IV tPA until evidence of ICH on Head CT, as I do not have high suspicion that there was been a true clinical change. Since ED team informed me that there would be delay in getting Head CT, we elected to stop the IV tPA infusion and pursue Head CT emergently once machine available when other patient off of it. I, Dr. Eliezer Baer, spent more than 30 minutes in the acute care of this patient between multiple calls with local ED providers. ELIEZER BAER MD Nov 13, 2016 19:24
[2016-11-13] MEDS: METOPROLOL 25 MG TAB PO SCH (20:54)
[2016-11-13] MEDS: ATORVASTATIN 40 MG TAB PO SCH (20:54)
[2016-11-13] MEDS: ALLOPURINOL 100 MG TAB PO SCH (20:55)
[2016-11-13] MEDS: PANTOPRAZOLE (EC) 40 MG TAB PO SCH (20:55)
--- NOTE | 2016-11-13 21:58 | RADRPT ---
PROCEDURE: Carotid ultrasound CLINICAL INDICATION: Stroke, carotid bruits TECHNIQUE: Allen scale, color doppler, spectral doppler ultrasound of the bilateral carotid and karen tebral arteries. This study indirectly references the measurement of the distal ICA diameter as the denominator for s tenosis measurement. Validated velocity measurements with angiographic measurements, velocity criter ia are extrapolated from diameter data as defined by: *Cartoid artery stenosis: allen-scale and Doppl er US diagnosis. Society of Radiologists in Ultrasound Consensus Conference. Radiology 2003; 229: 34 0-346. SRU Consensus Conference Criteria for the Diagnosis of Carotid Artery Stenosis* Degree of Stenosis, % ICA PSV, cm/sec Plaque Estimate, % ICA/CCA PSV Ratio Normal <125 None <2.0 <50 <125 <50 <2.0 50 69 125-230 >50 2.0-4.0 >70 but less than near occlusion >230 >50 <4.0 Near occlusion High, low, or undetectable Visible Variable Total occlusion Undetectable Visible, no detectable lumen Not applicable COMPARISON: No prior studies are available for comparison. FINDINGS: Location Right TSE406 cm/sec Prox ICA 89 cm/sec Mid ICA86 cm/sec Dist ICA86 cm/sec RZZ024 cm/sec ICA/CCA0.9 Left MQN801 cm/sec Prox ICA 61 cm/sec Mid ICA92 cm/sec Dist ZGL980 cm/sec YGN454 cm/sec ICA/CCA0.8 Plaque burden: No significant plaque is seen. High resistance antegrade wave form within the right vertebral artery. Normal antegrade wave form wi thin the left vertebral artery. IMPRESSION: No evidence of hemodynamically significant carotid stenosis. High resistance antegrade wave form asymmetrically diminish within the right vertebral artery as com pared to the left. CT angiography of the extracranial circulation is recommended for further evalua tion. RPTAT: AADD .Aakash Samano MD, MD Date Time Electronically viewed and signed by .Aakash Samano MD, on 11/13/2016 21:57 .B/
--- NOTE | 2016-11-13 21:59 | RADRPT ---
PROCEDURE: Ultrasound of the bilateral lower extremity venous system. CLINICAL INDICATION: Bilateral leg pain and swelling, deep venous thrombosis TECHNIQUE: Allen scale with and without compression, color doppler, spectral doppler of the venous system of the bilateral lower extremities was performed. Venous augmentation maneuvers were utilized . COMPARISON: No prior studies are available for comparison. FINDINGS: RIGHT: Common femoral vein: Patent. Femoral vein: Patent. Popliteal vein: Patent. Calf veins: Patent. No soft tissue abnormalities are identified. LEFT: Common femoral vein: Patent. Femoral vein: Patent. Popliteal vein: Patent. Calf veins: Patent. No soft tissue abnormalities are identified. IMPRESSION: No evidence of a deep vein thrombosis within the bilateral lower extremities. RPTAT: AADD .Aakash Samano MD, MD Date Time Electronically viewed and signed by .Aakash Samano MD, on 11/13/2016 21:59 .B/
--- NOTE | 2016-11-13 22:16 | CONS ---
Date/Time of Note Date/Time of Note DATE: 11/13/16 TIME: 22:15 Assessment/Plan Assessment/Plan Chief Complaint/Hosp Course 1. acute CVA: s/p; tPA. 2. HTN 3. Dyslipidemia 4. severe PAD 5. CAD ICU care for now permissive HTN ASA tomorrow. statin carotid u/s and ECHO Hold of on LE revascularization. Thank you for this referral. I will continue to follow along with you. GIACOMO COMER MD [facility] Problems: Consultation Date/Type/Reason Admit Date/Time Date of Consultation: Nov 13, 2016 Type of Consultation: cardiology Reason for Consultation CAD. HTN. Referring Provider: LEIDA MCINTOSH MD Hx of Present Illness Dear Dr Mcintosh, Thank you for his referral. Patient is very well known to me from previous outpatient hospital workup. This is a pleasant 76 year gentleman with history of peripheral vascular disease of bilateral SFA occlusion, history of possibly coronary artery disease and PCI many years ago, hypertension dyslipidemia who was admitted with acute CVA. Patient apparently has had sudden onset of right- sided weakness and speech difficulty. He was evaluated" stroke was called. TPA was administered per ER and neurology recommendation. Patient is currently in the ICU. He denies any chest pain or pressure to me denies any palpitation to me. He still has right-sided weakness and some slurred speech. Allergy sulfa medications : reviewed. Family history: No reported early coronary artery disease PMH: 1. HTN 2. severe PAD with b/l SFA occlusion, awaiting LE revascularization by DR Mcclelland. 3. Dyslipidemia 4. ? hx CAD, PCI many years ago. ROS; as above only + severe claudication of his LE he denies all others Past Medical History Medical History: hypertension Past Surgical History Past Surgical Hx: noncontributory Social History Alcohol Use: none Drug Use: none Exam/Review of Systems Vital Signs Vitals Vital Signs Date Time Temp Pulse Resp B/P Pulse Ox O2 Delivery O2 Flow Rate FiO2 11/13/16 18:45 76 15 144/60 97 Room Air 11/13/16 18:15 99.1 11/13/16 16:30 2.0 Exam General: thin man. no acute distress HEENT: NC/AT. pupils are equal. round. NECK: NO JVD. no stridor. CV: RRR. systolic murmur; no gallop or rubs. PULM: no wheezing or rhonchi. GI: SOFT, NT, ND, no rebound or guarding Extremity: trace B/L LE edema. no clubbing. neuro: awake and alert, OX3. right sided weakness and slurred speech Psych: calm and pleasant rectal: deferred : normal ECG NSR normal CT head and MRI brain results were reviewed. Results Result Diagram: 11/13/16 1100 11/13/16 1100 Results 24 hrs Laboratory Tests Test 11/13/16 11:00 11/13/16 15:30 White Blood Count 8.7 # Red Blood Count 4.77 Hemoglobin 15.0 Hematocrit 42.6 Mean Corpuscular Volume 89.3 Mean Corpuscular Hemoglobin 31.4 Mean Corpuscular Hemoglobin Concent 35.2 Red Cell Distribution Width 13.2 Platelet Count 151 Mean Platelet Volume 11.1 H Neutrophils % 82.3 H Lymphocytes % 13.5 L Monocytes % 2.6 Eosinophils % 0.8 Basophils % 0.3 Nucleated Red Blood Cells % 0.0 Neutrophils # (Manual) 7.2 Lymphocytes # 1.2 Monocytes # 0.2 L Eosinophils # 0.1 Basophils # 0.0 Nucleated Red Blood Cells # 0.0 Prothrombin Time 13.6 Prothrombin Time Ratio 1.1 INR International Normalized Ratio 1.04 Activated Partial Thromboplast Time 28.5 Sodium Level 146 H Potassium Level 3.8 Chloride Level 105 Carbon Dioxide Level 24 Anion Gap 21 H Blood Urea Nitrogen 12 Creatinine 0.65 Glucose Level 149 Hemoglobin A1c 5.6 Calcium Level 9.1 Troponin I < 0.012 Urine Color YELLOW Urine Clarity CLEAR Urine pH 8.0 Urine Specific [place] 1.013 Urine Ketones 1+ H Urine Nitrite NEGATIVE Urine Bilirubin NEGATIVE Urine Urobilinogen NEGATIVE Urine Leukocyte Esterase NEGATIVE Urine Hemoglobin NEGATIVE Urine Glucose NEGATIVE Urine Total Protein NEGATIVE Urine Opiates Screen Negative Urine Barbiturates Negative Urine Amphetamines Screen Negative Urine Benzodiazepines Screen Negative Urine Cocaine Screen Negative Urine Cannabinoids Negative Medications Medications Current Medications Allopurinol (Zyloprim) 100 mg BID PO ; Start 11/13/16 at 21:00 Aspirin (Halfprin) 81 mg DAILY PO ; Start 11/14/16 at 09:00 Atorvastatin Calcium (Lipitor) 40 mg QHS PO ; Start 11/13/16 at 21:00 Finasteride (Proscar) 5 mg DAILY PO ; Start 11/14/16 at 09:00 Metoprolol Tartrate (Lopressor) 25 mg BID PO ; Start 11/13/16 at 21:00 Pantoprazole (Protonix Tab) 40 mg BID PO ; Start 11/13/16 at 21:00 Acetaminophen (Tylenol Tab) 650 mg Q4H PRN PO Temp greater than 99.6F; Start at 15:30 Enoxaparin Sodium (Lovenox) 40 mg DAILY SC ; Start 11/14/16 at 09:00 Labetalol HCl 10 mg 10 mg Q4 PRN IV ELEVATED SYSTOLIC BP; Start 11/13/16 at 17: 30; Status UNV Sodium Chloride (NS) 1,000 ml @ 75 mls/hr [id number] IV Last administered on 11/13t 18:30; Admin Dose 75 MLS/HR; Start 11/13/16 at 18:30 GIACOMO COMER MD Nov 13, 2016 22:16
[2016-11-14] VITALS (21 sets, daily range): BP systolic 125–173; BP diastolic 53–145; PULSE 58–102; RESP 11–24
[2016-11-14] MEDS: SOD CHLORIDE 0.9% 1,000 ML IV SCH (06:08)
[2016-11-14] MEDS: LEVOTHYROXINE 88 MCG TAB PO SCH (06:08)
[2016-11-14 06:36] LABS: BASOPHILS % 0.4 % (0.0-2.0); EOSINOPHILS # 0.1 10^3/ul (0.0-0.5); EOSINOPHILS % 1.4 % (0.0-7.0); HEMATOCRIT 38.7 % (42.0-52.0); HEMOGLOBIN 13.3 g/dl (14.0-18.0); LYMPHOCYTES # 1.9 10^3/ul (0.8-2.9); LYMPHOCYTES % 25.2 % (15.0-51.0); MEAN CORPUSCULAR HEMOGLOBIN 31.1 pg (29.0-33.0); MEAN CORPUSCULAR HGB CONC 34.4 g/dl (32.0-37.0); MEAN CORPUSCULAR VOLUME 90.4 fl (82.0-101.0); MEAN PLATELET VOLUME 11.6 fl (7.4-10.4); MONOCYTE # 0.4 10^3/ul (0.3-0.9); NEUTROPHILS % 66.9 % (39.0-77.0); PLATELET COUNT 134 10^3/UL (140-415); POSITIVE DIFF @See below; RED BLOOD COUNT 4.28 10^6/ul (4.70-6.10); RED CELL DISTRIBUTION WIDTH 13.5 % (11.5-14.5); WHITE BLOOD COUNT 7.3 10^3/ul (4.8-10.8)
[2016-11-14 07:18] LABS: ALBUMIN 3.3 g/dl (3.3-4.9); BILIRUBIN,INDIRECT 0.7 mg/dl (0-1.1); BILIRUBIN,TOTAL 0.7 mg/dl (0.2-1.3); CALCIUM 8.7 mg/dl (8.4-10.2); CREATININE 0.58 mg/dl (0.61-1.24); POTASSIUM 3.4 mmol/L (3.5-5.1); TOTAL PROTEIN 6.6 g/dl (6.1-8.1)
[2016-11-14 07:19] LABS: CHOL/HDL RATIO 3.1 RATIO
[2016-11-14] MEDS ORDERED: ENOXAPARIN 40 MG/0.4 ML SYG SC SCH (09:00)
[2016-11-14] MEDS: ALLOPURINOL 100 MG TAB PO SCH ×2 (09:00→21:34)
[2016-11-14] MEDS ORDERED: POTASSIUM CHLORIDE (SR) 20 MEQ TAB PO STA (10:48)
[2016-11-14] MEDS: FINASTERIDE 5 MG TAB PO SCH (10:50)
[2016-11-14] MEDS: METOPROLOL 25 MG TAB PO SCH ×2 (10:50→21:34)
[2016-11-14] MEDS: ASPIRIN (EC) 81 MG TAB PO SCH (10:50)
[2016-11-14] MEDS: PANTOPRAZOLE (EC) 40 MG TAB PO SCH ×2 (10:50→21:33)
--- NOTE | 2016-11-14 11:55 | CONS ---
Date/Time of Note Date/Time of Note DATE: 11/14/16 TIME: 11:44 Assessment/Plan Assessment/Plan Chief Complaint/Hosp Course 76 year old male with history of HTN, CAD, severe PAD p/w large Left SSIS ARCHITECT stroke s/p IV tPA. Recommendations: Check CTA Head/Neck to evaluate for Left SSIS ARCHITECT stenosis, right vertebral occlusion Vitals signs per post tPA protocol neuro checks maintain SBP <180/105 initiate Aspirin 81 mg (24 HOURS POST IV tPA) must hold all antiplatelets and anticoagulation including DVT prophylaxis up to 24 hours post IV tPA Repeat Head CT w/o contrast this afternoon to evaluate for hemorrhagic conversion LDL and HBA1C at goal ECHO with bubble study tele monitoring for afib pharmacologic DVT ppx 24 hours post IV tPA, SCD speech/swallow evaluation PT/OT therapies may benefit from Acute Rehab Problems: Consultation Date/Type/Reason Admit Date/Time 11/14/16 Date of Consultation: Nov 14, 2016 Type of Consultation: Neurology Reason for Consultation Left SSIS ARCHITECT CVA Referring Provider: MABLE CONNOR MD Hx of Present Illness 76 year old male with history of HTN, HLD, severe PAD, CAD p/w right sided weakness, dysarthria with right facial droop, right field vision loss and poor control of right arm and leg within IV tPA window on 11/13 received IV tPA bolus shortly before noon on 11/13 admitted to the ICU for further work up. MRI Brain showed acute non hemorrhagic infarct in left thalamus, left thalami capsular junction, left occipital region and para hippocampal gyrus, bilateral chronic thalamic lacunar infarcts. He remained stable overnight, initiated on antiplatelet agent this morning. vision loss dysarthria right sided weakness Past Medical History Medical History: hypertension Past Surgical History Past Surgical Hx: noncontributory Social History Alcohol Use: none Drug Use: none Exam/Review of Systems Vital Signs Vitals Vital Signs Date Time Temp Pulse Resp B/P Pulse Ox O2 Delivery O2 Flow Rate FiO2 11/14/16 11:00 74 16 146/100 100 Room Air 11/14/16 09:00 98.9 11/13/16 16:30 2.0 Intake and Output 11/13/16 11/13/16 11/14/16 15:00 23:00 07:00 Intake Total 300 ml 525 ml Output Total 610 ml 100 ml Balance -310 ml 425 ml Exam awake and alert oriented to self hospital family and date follows commands well CN: REYMUNDO right visual field cut, right facial droop, severe dysarthria palate upgoing uvula midline scm/trap intact tongue midline Motor: right arm drift and right LE drift right arm and leg ataxia on FTN Sensory intact throughout Results Result Diagram: 11/14/1626 11/14/16 0526 Results 24 hrs Laboratory Tests Test 11/13/16 15:30 11/14/16 05:26 Urine Color YELLOW Urine Clarity CLEAR Urine pH 8.0 Urine Specific [place] 1.013 Urine Ketones 1+ H Urine Nitrite NEGATIVE Urine Bilirubin NEGATIVE Urine Urobilinogen NEGATIVE Urine Leukocyte Esterase NEGATIVE Urine Hemoglobin NEGATIVE Urine Glucose NEGATIVE Urine Total Protein NEGATIVE Urine Opiates Screen Negative Urine Barbiturates Negative Urine Amphetamines Screen Negative Urine Benzodiazepines Screen Negative Urine Cocaine Screen Negative Urine Cannabinoids Negative White Blood Count 7.3 Red Blood Count 4.28 L Hemoglobin 13.3 L Hematocrit 38.7 L Mean Corpuscular Volume 90.4 Mean Corpuscular Hemoglobin 31.1 Mean Corpuscular Hemoglobin Concent 34.4 Red Cell Distribution Width 13.5 Platelet Count 134 L Mean Platelet Volume 11.6 H Neutrophils % 66.9 Lymphocytes % 25.2 Monocytes % 6.0 Eosinophils % 1.4 Basophils % 0.4 Nucleated Red Blood Cells % 0.0 Neutrophils # (Manual) 4.9 Lymphocytes # 1.9 Monocytes # 0.4 Eosinophils # 0.1 Basophils # 0.0 Nucleated Red Blood Cells # 0.0 Sodium Level 141 Potassium Level 3.4 L Chloride Level 106 Carbon Dioxide Level 25 Anion Gap 13 # Blood Urea Nitrogen 12 Creatinine 0.58 L Glucose Level 89 # Hemoglobin A1c 5.5 Calcium Level 8.7 Total Bilirubin 0.7 Direct Bilirubin 0.00 Indirect Bilirubin 0.7 Aspartate Amino Transf (AST/SGOT) 31 Alanine Aminotransferase (ALT/SGPT) 33 Alkaline Phosphatase 90 Total Protein 6.6 Albumin 3.3 Globulin 3.30 H Albumin/Globulin Ratio 1.00 Triglycerides Level 61 Cholesterol Level 122 LDL Cholesterol, Calculated 71 HDL Cholesterol 39 Cholesterol/HDL Ratio 3.1 Thyroid Stimulating Hormone (TSH) 2.000 Medications Medications Current Medications Allopurinol (Zyloprim) 100 mg BID PO Last administered on 11/14/16 09:00; Admin Dose 100 MG; Start 11/13/16 at 21:00 Aspirin (Halfprin) 81 mg DAILY PO Last administered on 11/14/16 10:50; Admin Dose 81 MG; Start 11/14/16 at 09:00 Atorvastatin Calcium (Lipitor) 40 mg QHS PO ; Start 11/13/16 at 21:00 Finasteride (Proscar) 5 mg DAILY PO Last administered on 11/14/16 10:50; Admin Dose 5 MG; Start 11/14/16 at 09:00 Metoprolol Tartrate (Lopressor) 25 mg BID PO ; Start 11/13/16 at 21:00 Pantoprazole (Protonix Tab) 40 mg BID PO Last administered on 11/14/16 10:50; Admin Dose 40 MG; Start 11/13/16 at 21:00 Acetaminophen (Tylenol Tab) 650 mg Q4H PRN PO Temp greater than 99.6F; Start at 15:30 Enoxaparin Sodium (Lovenox) 40 mg DAILY SC Last administered on 11/14/16 10:52 ; Admin Dose 40 MG; Start 11/14/16 at 09:00 Labetalol HCl 10 mg 10 mg Q4H PRN IV BP ABOVE 185/110; Start 11/13/16 at 17:30 ; Status Future hold Sodium Chloride (NS) 1,000 ml @ 75 mls/hr [id number] IV Last administered on 11/14 06:08; Admin Dose 75 MLS/HR; Start 11/13/16 at 18:30 HEMA PLAZA MD Nov 14, 2016 11:54
--- NOTE | 2016-11-14 13:25 | RADRPT ---
Echocardiogram Report Patient Name: MARI NERI Gender: Male Date: 1940 Study Date: 14-Nov-2016 Cat Swamper: MARILIN BUTCHER Location: 118 Ref. Physician: MABLE CONNOR Quality: Good Procedures: Transthoracic echocardiogram with complete 2D, M-Mode, and doppler examination. Indications: S/P stroke. 2D/M Mode Doppler Measurement Value Normal Ranges Measurement Value Normal Ranges LVIDd 2D 4.0 3.5 - 5.6 cm OFELIA Vmax 2.2 cm2 LVIDs 2D 1.2 2.1 - 4.1 cm OFELIA VTI 2.2 cm2 LVPWd 2D 1.1 0.6 - 1.1 cm AV Mean Volodymyr 1.3 m/sec IVSd 2D 1.1 0.6 - 1.1 cm AV Mean PG 7.9 mmHg AoR Diam 2D 2.9 2.0 - 3.7 cm AV Peak Volodymyr 1.9 m/sec EDV 2D 68.7 cm3 AV Peak PG 14.2 mmHg ESV 2D 1.6 cm3 AV VTI 36.4 cm LA Dimen 2D 3.4 2.3 - 4.0 cm LVOT Mean Volodymyr 0.9 m/sec LVOT Diam 2.1 cm LVOT Mean PG 3.4 mmHg LVOT Peak Volodymyr 1.2 m/sec LVOT Peak PG 5.9 mmHg LVOT VTI 27.8 cm MV E Peak Volodymyr 0.9 m/sec MV A Peak Volodymyr 0.9 m/sec MV E/A 1.0 MV Decel Time 194 msec MV Decel [place] 4 MV E/A 1.0 TR Peak Volodymyr 2.3 m/sec TR Peak PG 21.0 mmHg RVSP 22.9 mmHg Findings Left Ventricle: Normal left ventricular systolic function. Normal left ventricular cavity size. Mild concentric left ventricular hypertrophy. Ejection fraction is visually estimated at 6065 %. Tissue Doppler/Mitral Doppler indices are consistent with impaired relaxation (Stage I diastolic dysfunction). Right Ventricle: Normal right ventricular size. Normal right ventricular systolic function. Left Atrium: The left atrium is normal in size. Right Atrium: The right atrium is normal in size. Mitral Valve: Normal appearance and function of the mitral valve with trace physiologic regurgitation. Aortic Valve: Normal appearance of the aortic valve. No significant aortic stenosis or insufficiency. Tricuspid Valve: Estimated peak PA systolic pressure 25 mmHg. There is trace tricuspid regurgitation. Pulmonic Valve: Normal pulmonic valve appearance. Pericardium: Normal pericardium with no significant pericardial effusion. Aorta: Normal aortic root. IVC: Normal size and normal respiratory collapse consistent with normal right atrial pressure. Pulmonary Artery: Not well visualized. Conclusions 1.Normal left ventricular systolic function. Normal left ventricular cavity size. Mild concentric left ventricular hypertrophy. Ejection fraction is visually estimated at 60-65 %. Tissue Doppler/Mitral Doppler indices are consistent with impaired relaxation (Stage I diastolic dysfunction). 2.Normal appearance and function of the mitral valve with trace physiologic regurgitation. 3.Estimated peak PA systolic pressure 25 mmHg. There is trace tricuspid regurgitation. Electronically Signed By: Nitish Alvarenga 14-Nov-2016 13:24:17 -0700 Patient Name: MARI NERI Study Date: 14-Nov-2016 [id number]
[2016-11-14] MEDS ORDERED: IODIXANOL LOCM 100 ML BTL ONE (13:29)
[2016-11-14] MEDS ORDERED: SOD CHLORIDE 0.9% 100 ML ONE (13:29)
--- NOTE | 2016-11-14 14:19 | RADRPT ---
PROCEDURE: CT Brain without contrast. CLINICAL INDICATION: Status post stroke and IV t-PA. TECHNIQUE: A multiplanar CT of the brain was performed on a CT scanner utilizing axial imaging fro m the skull base through the vertex without IV contrast. The CTDIvol is 44.58 mGy and the DLP is 72 0.23 mGycm. One or more of the following dose reduction techniques were utilized: Automated exposu re control, adjustment of the mA and/or kV according to patient size, use of iterative reconstructio n technique. COMPARISON: CT brain 10/06/2016 FINDINGS: No evidence of intracranial hemorrhage or abnormal extra-axial fluid collection. Loss of curiel-white differentiation and effacement of the sulci and gyri of the medial left occipital lobe , para hippoc ampal gyrus of the temporal lobe as well as posterior inferior thalamus compatible with acute / deborah y subacute ischemic infarct. No evidence of hemorrhagic transformation status post t-PA. Remote lac unar infarcts in the right thalamus and left basal ganglia. Mild patchy hypo attenuation throughout the periventricular and subcortical white matter most compat ible with sequelae of chronic microvascular ischemic injury. No evidence of midline shift. Preservation of remaining curiel white differentiation. One or more of the following dose reduction techniques were utilized: Automated exposure control, adjustment of t he mA and/or kV according to patient size, use of iterative reconstruction technique. The basal cisterns, posterior fossa contents, brainstem, craniocervical junction, orbits, pituitary axis, paranasal sinuses, left mastoid air cells, and calvarium are unremarkable. Hypoplastic right m astoid air cells. IMPRESSION: 1. Acute / early subacute ischemic infarct with loss of curiel-white differentiation and effacement o f the sulci and gyri involving the left medial occipital and posterior temporal lobe as well as post erior inferior thalamus. No evidence of hemorrhagic transformation status post t-PA. No significant mass effect or shift. Diffusion weighted MRI is recommended for further characterization of these f indings. 2. Remote lacunar infarct in the right thalamus. Lacunar infarct in the left basal ganglia of inde terminate age. Loss of curiel-white differentiation involving the mesial left temporal lobe suggestiv e of ischemic injury of indeterminate age. 3. Mild chronic microvascular ischemic changes and age related volume loss. 4. Atherosclerotic calcification of the internal carotid and vertebral arteries. RPTAT:AAJJ Carissa Kapoor Physician Date Time Electronically viewed and signed by Carissa Kapoor Physician on 11/14/2016 14:19 LUBA/
--- NOTE | 2016-11-14 14:59 | RADRPT ---
PROCEDURE: CTA head and neck CLINICAL INDICATION: Left posterior cerebral artery/vertebral artery occlusion. Stroke. 24-hour p ost t-PA administration. TECHNIQUE: The study was performed utilizing a multidetector CT scanner. Direct thin section he tiffanie 0.625 mm axial sections were obtained through the head and neck after the uneventful administrat ion of 85 mL Omnipaque 350 nonionic intravenous contrast material. Coronal and sagittal as well as maximal intensity projection reformations were obtained. 3-D images were made. The images were revi ewed on a PACS workstation. The total 63.56 mGy and the 610.15 mGy-cm. One or more of the following dose reduction techniques were utilized: Automated exposure control, adjustment of the mA and/or kV according to patient size, use of iterative reconstruction technique. COMPARISON: MRI/MRA brain, CT brain, heart pterional intracranial duplex evaluation of 11/13/2016. FINDINGS: CTA NECK: Aortic arch: The aortic arch is normal in caliber. Atherosclerotic calcification of the aortic arch. Normal appea pola of the origin of the great vessels. Common carotid arteries: The common carotid arteries are patent and normal in caliber bilaterally. Internal carotid arteries: LINDA/ECA: Normal appearance of the internal carotid artery bulb. The distal internal carotid artery is patent and normal in caliber. No evidence of hemodynamically significant stenosis. Minimal calcified athe rosclerotic plaque at the origin of the petrous portion of the right internal carotid artery Attending Radiologist al carotid artery and its branches are normal patent and normal in caliber LICA/ECA : Normal appearance of the internal carotid artery bulb. The distal internal carotid artery is patent and normal in caliber. No evidence of hemodynamically significant stenosis. Minimal and calcified atherosclerotic plaque in the proximal petrous portion of the left distal internal carotid artery. E xternal carotid artery and its branches are normal patent and normal in caliber Vertebral arteries: The vertebral arteries are patent bilaterally . The right vertebral artery is severely hypoplastic but demonstrates no evidence of focal narrowing or stenosis. CTA BRAIN: Atherosclerotic plaque of the cavernous internal carotid arteries bilaterally without hemodynamicall y significant stenosis . The vessels of the anterior posterior circulation are patent and demonstrate normal course and calib er without luminal irregularity, focal stenosis or occlusion. As noted on the MRA of 11/13/2016, and there is nonvisualization of the medial and lateral occipital and temporal distal cortical branches of the left posterior cerebral artery which may reflect high- grade stenosis or vasospasm. No definite large branch occlusion is identified The anterior posterior communicating arteries are intact. The basilar artery is patent and normal in caliber. The posterior communicating arteries are patent and normal in caliber. Dominant left vertebral artery. Severely hypoplastic or stenotic distal V4 segment of the right karen tebral artery. No aneurysm or vascular malformation is identified. The dural venous sinuses , cortical, and intrace rebral veins are patent and normal in caliber. IMPRESSION: 1. Again noted is nonvisualization of the medial and lateral occipital and temporal distal cortical branches of the left posterior cerebral artery suggestive of vasospasm or high-grade stenosis. No large branch occlusion. 2. Markedly hypoplastic right vertebral artery with severely hypoplastic/stenotic distal V4 intradu ral segment. 3. Atherosclerotic plaque of the intracranial carotid arteries without evidence of hemodynamically significant stenosis. 4. The remaining neck vessels and intracranial vasculature is unremarkable. RPTAT:AAJJ Physician Ai Date Time Electronically viewed and signed by Physician Ai on 11/14/2016 14:59 LUBA/
--- NOTE | 2016-11-14 15:03 | PN ---
Date/Time of Note Date/Time of Note DATE: 11/14/16 TIME: 14:56 Assessment/Plan VTE Prophylaxis VTE Prophylaxis Intervention: LMWH Lines/Catheters IV [facility] Saline Lock Assessment/Plan Chief Complaint/Hosp Course CVA status post TPA -CVA includes left thalamus, left thalami capsular junction, left occipital lobe and para hippocampal gyrus causing RUE ataxia, heminopsia and dysarthria -MRA and carotid duplex showed no significant occlusion - TTE normal limits - Lipids, A1C normal limits -Start aspirin - Swallow evaluation, started on diet -Neuro consultation appreciated Hypertension: -Resume home meds for now - PRN labetalol if SBP > 180 given s/p TPA BPH: - Continue finasteride Prophylaxis: Lovenox Problems: Subjective 24 Hr Interval Summary Constitutional: no complaints Exam/Review of Systems Vital Signs Vitals Vital Signs Date Time Temp Pulse Resp B/P Pulse Ox O2 Delivery O2 Flow Rate FiO2 11/14/16 14:00 73 16 144/64 98 Room Air 11/14/16 09:00 98.9 11/13/16 16:30 2.0 Intake and Output 11/13/16 11/13/16 11/14/16 14:59 22:59 06:59 Intake Total 225 ml 600 ml Output Total 610 ml 100 ml Balance -385 ml 500 ml Exam Constitutional: alert Respiratory: clear to auscultation Cardiovascular: regular rate and rhythm Gastrointestinal: soft, No distended Musculoskeletal: nl extremities to inspection Results Result Diagram: 11/14/16 0526 11/14/16 0526 Results 24 hrs Laboratory Tests Test 11/13/16 15:30 11/14/16 05:26 Urine Color YELLOW Urine Clarity CLEAR Urine pH 8.0 Urine Specific [place] 1.013 Urine Ketones 1+ H Urine Nitrite NEGATIVE Urine Bilirubin NEGATIVE Urine Urobilinogen NEGATIVE Urine Leukocyte Esterase NEGATIVE Urine Hemoglobin NEGATIVE Urine Glucose NEGATIVE Urine Total Protein NEGATIVE Urine Opiates Screen Negative Urine Barbiturates Negative Urine Amphetamines Screen Negative Urine Benzodiazepines Screen Negative Urine Cocaine Screen Negative Urine Cannabinoids Negative White Blood Count 7.3 Red Blood Count 4.28 L Hemoglobin 13.3 L Hematocrit 38.7 L Mean Corpuscular Volume 90.4 Mean Corpuscular Hemoglobin 31.1 Mean Corpuscular Hemoglobin Concent 34.4 Red Cell Distribution Width 13.5 Platelet Count 134 L Mean Platelet Volume 11.6 H Neutrophils % 66.9 Lymphocytes % 25.2 Monocytes % 6.0 Eosinophils % 1.4 Basophils % 0.4 Nucleated Red Blood Cells % 0.0 Neutrophils # (Manual) 4.9 Lymphocytes # 1.9 Monocytes # 0.4 Eosinophils # 0.1 Basophils # 0.0 Nucleated Red Blood Cells # 0.0 Sodium Level 141 Potassium Level 3.4 L Chloride Level 106 Carbon Dioxide Level 25 Anion Gap 13 # Blood Urea Nitrogen 12 Creatinine 0.58 L Glucose Level 89 # Hemoglobin A1c 5.5 Calcium Level 8.7 Total Bilirubin 0.7 Direct Bilirubin 0.00 Indirect Bilirubin 0.7 Aspartate Amino Transf (AST/SGOT) 31 Alanine Aminotransferase (ALT/SGPT) 33 Alkaline Phosphatase 90 Total Protein 6.6 Albumin 3.3 Globulin 3.30 H Albumin/Globulin Ratio 1.00 Triglycerides Level 61 Cholesterol Level 122 LDL Cholesterol, Calculated 71 HDL Cholesterol 39 Cholesterol/HDL Ratio 3.1 Thyroid Stimulating Hormone (TSH) 2.000 Medications Medications Current Medications Allopurinol (Zyloprim) 100 mg BID PO Last administered on 11/14/16 09:00; Admin Dose 100 MG; Start 11/13/16 at 21:00 Aspirin (Halfprin) 81 mg DAILY PO Last administered on 11/14/16 10:50; Admin Dose 81 MG; Start 11/14/16 at 09:00 Atorvastatin Calcium (Lipitor) 40 mg QHS PO ; Start 11/13/16 at 21:00 Finasteride (Proscar) 5 mg DAILY PO Last administered on 11/14/16 10:50; Admin Dose 5 MG; Start 11/14/16 at 09:00 Metoprolol Tartrate (Lopressor) 25 mg BID PO ; Start 11/13/16 at 21:00 Pantoprazole (Protonix Tab) 40 mg BID PO Last administered on 11/14/16 10:50; Admin Dose 40 MG; Start 11/13/16 at 21:00 Acetaminophen (Tylenol Tab) 650 mg Q4H PRN PO Temp greater than 99.6F; Start at 15:30 Labetalol HCl 10 mg 10 mg Q4H PRN IV BP ABOVE 185/110; Start 11/13/16 at 17:30 ; Status Future hold Sodium Chloride (NS) 1,000 ml @ 75 mls/hr [id number] IV Last administered on 11/14 06:08; Admin Dose 75 MLS/HR; Start 11/13/16 at 18:30 Enoxaparin Sodium (Lovenox) 40 mg DAILY SC ; Start 11/15/16 at 09:[address] WEAV[address] Nov 14, 2016 15:03
--- NOTE | 2016-11-14 16:28 | CONS ---
Date/Time of Note Date/Time of Note DATE: 11/14/16 TIME: 16:23 Consult Date/Type/Reason Admit Date/Time Nov 13, 2016 at 15:17 Initial Consult Date 11/14/16 Type of Consultation: cardiology Ordering Provider: MABLE CONNOR MD Subjective Discussed with staff emergency was reviewed. Patient remained sinus rhythm. Denies any chest pain or pressure no palpitation to me. He still has weakness on the right side and he still has some slurred speech. He is feeling better though. No bleeding reported. History in the ICU being closely monitored. OBJECTIVE: General: no acute distress HEENT: NC/AT. pupils are equal. round. NECK: NO JVD. no stridor. CV: RRR. systolic murmur; no gallop or rubs. PULM: no wheezing or rhonchi. GI: SOFT, NT, ND, no rebound or guarding Extremity: trace B/L LE edema. no clubbing. neuro: awake and alert, OX3. slight slurred speech and right arm weakness Psych: calm and pleasant rectal: deferred : normal ECHO: 1. Normal left ventricular systolic function. Normal left ventricular cavity size. Mild concentric left ventricular hypertrophy. Ejection fraction is visually estimated at 60-65 %. Tissue Doppler/Mitral Doppler indices are consistent with impaired relaxation (Stage I diastolic dysfunction). 2. Normal appearance and function of the mitral valve with trace physiologic regurgitation. 3. Estimated peak PA systolic pressure 25 mmHg. There is trace tricuspid regurgitation. Objective Vital Signs Date Time Temp Pulse Resp B/P Pulse Ox O2 Delivery O2 Flow Rate FiO2 11/14/16 14:00 73 16 144/64 98 Room Air 11/14/16 09:00 98.9 11/13/16 16:30 2.0 Intake and Output 11/13/16 11/13/16 11/14/16 15:00 23:00 07:00 Intake Total 300 ml 600 ml Output Total 610 ml 100 ml Balance -310 ml 500 ml Results/Medications Result Diagram: 11/14/16 0526 11/14/16 05 Results 24 hrs Laboratory Tests Test 11/14/16 05:26 White Blood Count 7.3 Red Blood Count 4.28 L Hemoglobin 13.3 L Hematocrit 38.7 L Mean Corpuscular Volume 90.4 Mean Corpuscular Hemoglobin 31.1 Mean Corpuscular Hemoglobin Concent 34.4 Red Cell Distribution Width 13.5 Platelet Count 134 L Mean Platelet Volume 11.6 H Neutrophils % 66.9 Lymphocytes % 25.2 Monocytes % 6.0 Eosinophils % 1.4 Basophils % 0.4 Nucleated Red Blood Cells % 0.0 Neutrophils # (Manual) 4.9 Lymphocytes # 1.9 Monocytes # 0.4 Eosinophils # 0.1 Basophils # 0.0 Nucleated Red Blood Cells # 0.0 Sodium Level 141 Potassium Level 3.4 L Chloride Level 106 Carbon Dioxide Level 25 Anion Gap 13 # Blood Urea Nitrogen 12 Creatinine 0.58 L Glucose Level 89 # Hemoglobin A1c 5.5 Calcium Level 8.7 Total Bilirubin 0.7 Direct Bilirubin 0.00 Indirect Bilirubin 0.7 Aspartate Amino Transf (AST/SGOT) 31 Alanine Aminotransferase (ALT/SGPT) 33 Alkaline Phosphatase 90 Total Protein 6.6 Albumin 3.3 Globulin 3.30 H Albumin/Globulin Ratio 1.00 Triglycerides Level 61 Cholesterol Level 122 LDL Cholesterol, Calculated 71 HDL Cholesterol 39 Cholesterol/HDL Ratio 3.1 Thyroid Stimulating Hormone (TSH) 2.000 Medications Current Medications Allopurinol (Zyloprim) 100 mg BID PO Last administered on 11/14/16 09:00; Admin Dose 100 MG; Start 11/13/16 at 21:00 Aspirin (Halfprin) 81 mg DAILY PO Last administered on 11/14/16 10:50; Admin Dose 81 MG; Start 11/14/16 at 09:00 Atorvastatin Calcium (Lipitor) 40 mg QHS PO ; Start 11/13/16 at 21:00 Finasteride (Proscar) 5 mg DAILY PO Last administered on 11/14/16 10:50; Admin Dose 5 MG; Start 11/14/16 at 09:00 Metoprolol Tartrate (Lopressor) 25 mg BID PO ; Start 11/13/16 at 21:00 Pantoprazole (Protonix Tab) 40 mg BID PO Last administered on 11/14/16 10:50; Admin Dose 40 MG; Start 11/13/16 at 21:00 Acetaminophen (Tylenol Tab) 650 mg Q4H PRN PO Temp greater than 99.6F; Start at 15:30 Labetalol HCl (Labetalol) 10 mg Q4H PRN IV BP ABOVE 185/110; Start 11/13/16 at 17:30; Status Future hold Enoxaparin Sodium (Lovenox) 40 mg DAILY SC ; Start 11/15/16 at 09:00 Assessment/Plan Chief Complaint/Hosp Course 1. acute CVA: s/p; tPA. 2. HTN 3. Dyslipidemia 4. severe PAD 5. CAD f/u neuro rec. permissive HTN ASA tomorrow. statin carotid u/s and ECHO Hold off on LE revascularization surgery. dw/ DR Mcclelland,. . Thank you for this referral. I will continue to follow along with you. GIACOMO COMER MD [facility] Problems: GIACOMO COMER MD Nov 14, 2016 16:27
[2016-11-14] MEDS: ATORVASTATIN 40 MG TAB PO SCH (21:33)
[2016-11-15] VITALS (11 sets, daily range): BP systolic 132–172; BP diastolic 65–78; PULSE 66–91; RESP 16–18
[2016-11-15] MEDS: LEVOTHYROXINE 88 MCG TAB PO SCH (06:29)
[2016-11-15 07:55] LABS: BASOPHILS % 0.4 % (0.0-2.0); EOSINOPHILS # 0.1 10^3/ul (0.0-0.5); EOSINOPHILS % 0.6 % (0.0-7.0); HEMATOCRIT 42.4 % (42.0-52.0); HEMOGLOBIN 14.8 g/dl (14.0-18.0); LYMPHOCYTES # 1.9 10^3/ul (0.8-2.9); LYMPHOCYTES % 23.8 % (15.0-51.0); MEAN CORPUSCULAR HGB CONC 34.9 g/dl (32.0-37.0); MEAN CORPUSCULAR VOLUME 88.9 fl (82.0-101.0); MONOCYTE # 0.4 10^3/ul (0.3-0.9); MONOCYTES % 4.9 % (0.0-11.0); PLATELET COUNT 146 10^3/UL (140-415); RED BLOOD COUNT 4.77 10^6/ul (4.70-6.10); RED CELL DISTRIBUTION WIDTH 13.3 % (11.5-14.5); WHITE BLOOD COUNT 7.8 10^3/ul (4.8-10.8)
[2016-11-15 08:16] LABS: CALCIUM 9.2 mg/dl (8.4-10.2); CREATININE 0.61 mg/dl (0.61-1.24); MAGNESIUM 1.9 mg/dl (1.7-2.5); PHOSPHORUS 2.9 mg/dl (2.5-4.9); POTASSIUM 4.1 mmol/L (3.5-5.1)
[2016-11-15] MEDS ORDERED: ENOXAPARIN 40 MG/0.4 ML SYG SC SCH (09:00)
[2016-11-15] MEDS: METOPROLOL 25 MG TAB PO SCH ×2 (09:00→20:50)
[2016-11-15] MEDS: ASPIRIN (EC) 81 MG TAB PO SCH (09:15)
[2016-11-15] MEDS: FINASTERIDE 5 MG TAB PO SCH (09:15)
[2016-11-15] MEDS: PANTOPRAZOLE (EC) 40 MG TAB PO SCH ×2 (09:15→20:47)
[2016-11-15] MEDS: ALLOPURINOL 100 MG TAB PO SCH ×2 (09:20→20:48)
--- NOTE | 2016-11-15 11:21 | CONS ---
Date/Time of Note Date/Time of Note DATE: 11/15/16 TIME: 11:18 Consult Date/Type/Reason Admit Date/Time Nov 13, 2016 at 15:17 Initial Consult Date 11/14/16 Type of Consultation: Neurology Reason for Consultation Left COMPUTATIONAL MATHEMATICIAN CVA Ordering Provider: MABLE CONNOR MD Subjective symptoms gradually improving improved ataxia right UE Objective Vital Signs Date Time Temp Pulse Resp B/P Pulse Ox O2 Delivery O2 Flow Rate FiO2 11/15/16 11:16 98.3 85 18 147/67 96 11/14/16 16:00 Room Air 11/13/16 16:30 2.0 Intake and Output 11/14/16 11/14/16 11/15/16 15:00 23:00 07:00 Intake Total 1045 ml 0 ml Output Total 1580 ml 0 ml Balance -535 ml 0 ml Exam awake and alert oriented to self hospital family and date follows commands well CN: REYMUNDO right visual field cut, right facial droop, severe dysarthria palate upgoing uvula midline scm/trap intact tongue midline Motor: right arm drift and right LE drift right arm and leg ataxia on FTN Sensory intact throughout Results/Medications Result Diagram: 11/15/16 0732 11/15/16 0732 Results 24 hrs Laboratory Tests Test 11/15/16 07:32 White Blood Count 7.8 Red Blood Count 4.77 Hemoglobin 14.8 Hematocrit 42.4 Mean Corpuscular Volume 88.9 Mean Corpuscular Hemoglobin 31.0 Mean Corpuscular Hemoglobin Concent 34.9 Red Cell Distribution Width 13.3 Platelet Count 146 Mean Platelet Volume 11.0 H Neutrophils % 70.0 Lymphocytes % 23.8 Monocytes % 4.9 Eosinophils % 0.6 Basophils % 0.4 Nucleated Red Blood Cells % 0.0 Neutrophils # (Manual) 5.5 Lymphocytes # 1.9 Monocytes # 0.4 Eosinophils # 0.1 Basophils # 0.0 Nucleated Red Blood Cells # 0.0 Sodium Level 141 Potassium Level 4.1 Chloride Level 105 Carbon Dioxide Level 24 Anion Gap 16 Blood Urea Nitrogen 12 Creatinine 0.61 Glucose Level 104 Calcium Level 9.2 Phosphorus Level 2.9 Magnesium Level 1.9 Medications Current Medications Allopurinol (Zyloprim) 100 mg BID PO Last administered on 11/15/16t 09:20; Admin Dose 100 MG; Start 8/27/17 at 21:00 Aspirin (Halfprin) 81 mg DAILY PO Last administered on 11/15/16 09:15; Admin Dose 81 MG; Start 11/14/16 at 09:00 Atorvastatin Calcium (Lipitor) 40 mg QHS PO Last administered on 11/14/16 21: 33; Admin Dose 40 MG; Start 11/13/16 at 21:00 Finasteride (Proscar) 5 mg DAILY PO Last administered on 11/15/16 09:15; Admin Dose 5 MG; Start 11/14/16 at 09:00 Metoprolol Tartrate (Lopressor) 25 mg BID PO Last administered on 11/14/16 21: 34; Admin Dose 25 MG; Start 11/13/16 at 21:00 Pantoprazole (Protonix Tab) 40 mg BID PO Last administered on 11/15/16 09:15; Admin Dose 40 MG; Start 11/13/16 at 21:00 Acetaminophen (Tylenol Tab) 650 mg Q4H PRN PO Temp greater than 99.6F; Start at 15:30 Labetalol HCl (Labetalol) 10 mg Q4H PRN IV BP ABOVE 185/110; Start 11/13/16 at 17:30; Status Future hold Enoxaparin Sodium (Lovenox) 40 mg DAILY SC Last administered on 11/15/16 09:20 ; Admin Dose 40 MG; Start 11/15/16 at 09:00 Assessment/Plan Chief Complaint/Hosp Course 76 year old male with history of HTN, CAD, severe PAD p/w large Left COMPUTATIONAL MATHEMATICIAN stroke s/p IV tPA on 11/13. CTA Head confirms left COMPUTATIONAL MATHEMATICIAN stenosis. Possible etiology for stroke- cardioembolism vs. intracranial atherosclerosis Recommendations: maintain SBP <180/[address] stable Initiate Plavix 75 mg daily in addition to aspirin 81 mg will treat as intracranial atherosclerosis with dual antiplatelet for 3 months then c/w Plavix 75 mg single antiplatelet after 90 days ECHO w bubble EF wnl tele monitoring for afib pharmacologic DVT ppx speech/swallow evaluation cleared for Acute Rehab Problems: HEMA PLAZA MD Nov 15, 2016 11:21
[2016-11-15] MEDS ORDERED: CLOPIDOGREL 75 MG TAB PO SCH (11:30)
--- NOTE | 2016-11-15 16:08 | CONS ---
Date/Time of Note Date/Time of Note DATE: 11/15/16 TIME: 16:06 Consult Date/Type/Reason Admit Date/Time Nov 13, 2016 at 15:17 Initial Consult Date 11/14/16 Type of Consultation: CARDIOLOGY Ordering Provider: MABLE CONNOR MD Subjective Discussed with staff and niece. rhythm strips were reviewed. Patient remained sinus rhythm. he denies any chest pain or pressure no palpitation to me. He still has weakness on the right side and he still has some slurred speech, but slowly improving He is feeling better though. No bleeding reported. . OBJECTIVE: General: no acute distress HEENT: NC/AT. pupils are equal. round. NECK: NO JVD. no stridor. CV: RRR. systolic murmur; no gallop or rubs. PULM: no wheezing or rhonchi. GI: SOFT, NT, ND, no rebound or guarding Extremity: trace B/L LE edema. no clubbing. neuro: awake and alert, OX3. slight slurred speech and right arm weakness Psych: calm and pleasant rectal: deferred : normal ECHO: 1. Normal left ventricular systolic function. Normal left ventricular cavity size. Mild concentric left ventricular hypertrophy. Ejection fraction is visually estimated at 60-65 %. Tissue Doppler/Mitral Doppler indices are consistent with impaired relaxation (Stage I diastolic dysfunction). 2. Normal appearance and function of the mitral valve with trace physiologic regurgitation. 3. Estimated peak PA systolic pressure 25 mmHg. There is trace tricuspid regurgitation. Objective Vital Signs Date Time Temp Pulse Resp B/P Pulse Ox O2 Delivery O2 Flow Rate FiO2 11/15/16 15:14 98.4 78 18 132/65 98 11/14/16 16:00 Room Air 11/13/16 16:30 2.0 Intake and Output 11/14/16 11/14/16 11/15/16 15:00 23:00 07:00 Intake Total 1045 ml 0 ml Output Total 1580 ml 0 ml Balance -535 ml 0 ml Results/Medications Result Diagram: 11/15/16 0732 11/15/16 0732 Results 24 hrs Laboratory Tests Test 11/15/16 07:32 White Blood Count 7.8 Red Blood Count 4.77 Hemoglobin 14.8 Hematocrit 42.4 Mean Corpuscular Volume 88.9 Mean Corpuscular Hemoglobin 31.0 Mean Corpuscular Hemoglobin Concent 34.9 Red Cell Distribution Width 13.3 Platelet Count 146 Mean Platelet Volume 11.0 H Neutrophils % 70.0 Lymphocytes % 23.8 Monocytes % 4.9 Eosinophils % 0.6 Basophils % 0.4 Nucleated Red Blood Cells % 0.0 Neutrophils # (Manual) 5.5 Lymphocytes # 1.9 Monocytes # 0.4 Eosinophils # 0.1 Basophils # 0.0 Nucleated Red Blood Cells # 0.0 Sodium Level 141 Potassium Level 4.1 Chloride Level 105 Carbon Dioxide Level 24 Anion Gap 16 Blood Urea Nitrogen 12 Creatinine 0.61 Glucose Level 104 Calcium Level 9.2 Phosphorus Level 2.9 Magnesium Level 1.9 Medications Current Medications Allopurinol (Zyloprim) 100 mg BID PO Last administered on 11/15/16 09:20; Admin Dose 100 MG; Start 11/13/16 at 21:00 Aspirin (Halfprin) 81 mg DAILY PO Last administered on 11/15/16 09:15; Admin Dose 81 MG; Start 11/14/16 at 09:00 Atorvastatin Calcium (Lipitor) 40 mg QHS PO Last administered on 11/14/16 21: 33; Admin Dose 40 MG; Start 11/13/16 at 21:00 Finasteride (Proscar) 5 mg DAILY PO Last administered on 11/15/16 09:15; Admin Dose 5 MG; Start 11/14/16 at 09:00 Metoprolol Tartrate (Lopressor) 25 mg BID PO Last administered on 11/14/16 21: 34; Admin Dose 25 MG; Start 11/13/16 at 21:00 Pantoprazole (Protonix Tab) 40 mg BID PO Last administered on 11/15/16 09:15; Admin Dose 40 MG; Start 11/13/16 at 21:00 Acetaminophen (Tylenol Tab) 650 mg Q4H PRN PO Temp greater than 99.6F; Start at 15:30 Labetalol HCl (Labetalol) 10 mg Q4H PRN IV BP ABOVE 185/110; Start 11/13/16 at 17:30; Status Future hold Enoxaparin Sodium (Lovenox) 40 mg DAILY SC Last administered on 11/15/16 09:20 ; Admin Dose 40 MG; Start 11/15/16 at 09:00 Clopidogrel Bisulfate (plaVIX) 75 mg DAILY PO Last administered on 8/29/17at 12 :01; Admin Dose 75 MG; Start 11/15/16 at 11:30 Assessment/Plan Chief Complaint/Hosp Course 1. acute CVA: s/p; tPA. 2. HTN 3. Dyslipidemia 4. severe PAD 5. CAD f/u neuro rec. permissive HTN ASA statin carotid u/s and ECHO done already. Hold off on LE revascularization surgery for now. dw/ DR Mcclelland,. . Thank you for this referral. I will continue to follow along with you. GIACOMO COMER MD [facility] Problems: GIACOMO COMER MD Nov 15, 2016 16:07
[2016-11-15] MEDS ORDERED: AMLO5TAB4 PO (17:06)
[2016-11-15] MEDS ORDERED: CLOP75TA28 PO (17:06)
--- NOTE | 2016-11-15 18:26 | DS ---
Date/Time of Note Date/Time of Note DATE: 11/15/16 TIME: 18:14 Discharge Summary Admission/Discharge Info Admit Date/Time Nov 13, 2016 at 15:17 Discharge Date/Time November 15, 2016 Discharge Diagnosis 1. CVA status post TPA -CVA includes left thalamus, left thalami capsular junction, left occipital lobe and para hippocampal gyrus causing RUE ataxia, heminopsia and dysarthria -MRA and carotid duplex showed no significant occlusion - TTE normal limits - Lipids, A1C normal limits -Continue aspirin, Plavix, statin -DC to acute rehab -Neuro consultation appreciated Hypertension: -DC home metoprolol and start Norvasc BPH: - Continue finasteride Patient Condition: Fair Hospital Course Patient is a 76 yo male with h/o hypertension and BPH who presents with acute onset or RUE weakness and vision impairment. Initial head CT negative patient received tPA. MRI shows posterior ischemic infarct with involvement of left thalamus, left thalami capsular junction, left occipital lobe and para hippocampal gyrus. Currently with stable symptoms. Has dysarthria, RUE weakness /poor control, and R sided vision loss which is beginning to improve. She was seen by neurology as well as cardiology, 2D echo was within normal limits CTA of the neck and brain did show occlusion in the left posterior cerebral artery was atherosclerosis in the carotids with no significant occlusion. Patient was seen by neurology the recommendation was to continue aspirin and Plavix for the next 3 months after 3 months the patient can continue with only Plavix. Patient 's A1c and lipid profile was within normal limits. Patient was seen by speech therapy and was started on a p.o. diet. Patient was also seen by PT and was cleared for acute rehab. The day of discharge patient's symptoms were beginning to improve, he had no acute complaints, his physical exam, vitals and labs were within normal limits. Patient's home metoprolol was to be held upon DC and patient was to be started on Norvasc for BP control. Home Meds Active Scripts Amlodipine Besylate* (Norvasc*) 5 Mg Tablet, 5 MG PO DAILY, #60 TAB Prov:LANE WEAVER 11/15/16 Clopidogrel Bisulfate (Clopidogrel) 75 Mg Tablet, 75 MG PO DAILY, #30 TAB Prov:LANE WEAVER 11/15/16 Reported Medications Levothyroxine Sodium* (Levothyroxine Sodium*) 88 Mcg Tablet, 88 MCG PO BEFORE BREAKFAST, #30 TAB 11/13/16 Atorvastatin* (Atorvastatin*) 40 Mg Tablet, 40 MG PO QHS, #30 TAB 11/13/16 Finasteride* (Finasteride*) 5 Mg Tablet, 5 MG PO DAILY, TAB 11/13/16 Allopurinol* (Allopurinol*) 100 Mg Tablet, 100 MG PO BID, TAB 11/13/16 [place]-3 Fatty Acids/Fish Oil (Fish Oil Conc 1,000 mg Softgel) 1 Each Capsule, 1 EACH PO DAILY, CAP 11/13/16 Pantoprazole (Protonix) 40 Mg Tabec, 40 MG PO BID, TAB 10/04/16 Niacin* (Niacin*) 500 Mg Tablet, 500 MG PO DAILY, TAB 10/04/16 Aspirin Ec (Aspir 81) 81 Mg Tablet.dr, 81 MG PO DAILY 08/05/11 Discontinued Reported Medications Metoprolol Tartrate* (Lopressor*) 25 Mg Tab, 25 MG PO BID, #60 TAB 10/04/16 [place]-3S/Dha/Epa/Fish Oil (Fish Oil 1,200 mg Softgel) 1 Each Capsule, 1 EACH PO , CAP 10/04/16 Terazosin Hcl* (Terazosin Hcl*) 10 Mg Capsule, 10 MG PO BID 08/05/11 Fenofibrate, Micronized* (Fenofibrate*) 160 Mg Tablet, 160 MG PO DAILY 08/05/11 Follow-up Plan Follow-up with physicians at acute rehab Primary Care Provider Shanika Mcintosh MD Time spent on discharge: > [address] [facility] Nov 15, 2016 18:25
[2016-11-15] MEDS: ATORVASTATIN 40 MG TAB PO SCH (20:48)
== END 2016-11-15 22:05 | DRG 62 ==
LOC: E/R 11:00 → ICU 15:17 → TEL 11-14 17:10
PROVIDERS: ADMIT Internal Medicine; ATTEND Internal Medicine
DX: I63.9 Cerebral infarction, unspecified (principal); G81.91 Hemiplegia, unspecified affecting right dominant side; I10 Essential (primary) hypertension; R29.810 Facial weakness; R47.1 Dysarthria and anarthria; R20.8 Other disturbances of skin sensation; R53.1 Weakness; R29.707 NIHSS score 7; N40.0 Benign prostatic hyperplasia without lower urinary tract symptoms; H53.47 Heteronymous bilateral field defects; R27.0 Ataxia, unspecified; E78.5 Hyperlipidemia, unspecified; I25.10 Atherosclerotic heart disease of native coronary artery without angina pectoris; I70.213 Atherosclerosis of native arteries of extremities with intermittent claudication, bilateral legs; Z79.82 Long term (current) use of aspirin; Z79.02 Long term (current) use of antithrombotics/antiplatelets; Z88.2 Allergy status to sulfonamides
CPT/HCPCS: 70450; 70496; 70498; 70544; 70551; 71010; 80048; 80053; 80061; 80307; 81003; 83036; 83735; 84100; 84443; 84484; 85025; 85610; 85730; 87081; 92523; 92526; 92610; 93005; 93306; 93880; 93970; 97162; J1650; J2997; J7030; Q9967

== ENCOUNTER 2016-11-15 18:20 | Inpatient (IN) | payer MEDICARE ==
[~2016-11-15] VITALS: Ht 167.6 cm; Wt 65.0 kg
[~2016-11-15 18:20] MED LIST changes: +ALLO100T PO; +AMLO5TAB4 PO; +ATOR40TA68 PO; +CLOP75TA28 PO; -FENO160T13 PO; +FINA5TAB4 PO; -LEVO88TA PO; +LEVO88TA3 PO; -OMEG-124 PO; +OMEG1CAP22 PO; -TERA10CA42 PO
[2016-11-15 22:30] VITALS: Ht 167.6 cm; Wt 65.0 kg
[2016-11-15] MEDS ORDERED: LACTULOSE 30ML CUP PO PRN (23:45)
[2016-11-15] MEDS ORDERED: MAGNESIUM HYDROXIDE 30ML CUP PO PRN (23:45)
[2016-11-15] MEDS ORDERED: BISACODYL 10 MG SUPP PR PRN (23:45)
[2016-11-15] MEDS ORDERED: ACETAMINOPHEN 325 MG TAB PO PRN (23:45)
[2016-11-16 02:00] VITALS: BP 126/62; RESP 18
[2016-11-16] MEDS: LEVOTHYROXINE 88 MCG TAB PO SCH (06:52)
[2016-11-16] MEDS: PANTOPRAZOLE (EC) 40 MG TAB PO SCH (06:52)
[2016-11-16 07:16] LABS: BASOPHILS % 0.3 % (0.0-2.0); EOSINOPHILS # 0.1 10^3/ul (0.0-0.5); EOSINOPHILS % 1.8 % (0.0-7.0); HEMOGLOBIN 14.6 g/dl (14.0-18.0); LYMPHOCYTES % 30.7 % (15.0-51.0); MEAN CORPUSCULAR HEMOGLOBIN 30.5 pg (29.0-33.0); MEAN PLATELET VOLUME 11.3 fl (7.4-10.4); MONOCYTE # 0.5 10^3/ul (0.3-0.9); MONOCYTES % 7.2 % (0.0-11.0); NEUTROPHILS % 59.7 % (39.0-77.0); PLATELET COUNT 138 10^3/UL (140-415); POSITIVE DIFF @See below; RED BLOOD COUNT 4.78 10^6/ul (4.70-6.10); RED CELL DISTRIBUTION WIDTH 13.4 % (11.5-14.5); WHITE BLOOD COUNT 6.7 10^3/ul (4.8-10.8)
[2016-11-16 07:58] VITALS: BP 171/70; RESP 18
[2016-11-16 08:04] LABS: ALBUMIN 3.8 g/dl (3.3-4.9); ALBUMIN/GLOBULIN RATIO 1.05; BILIRUBIN,INDIRECT 0.9 mg/dl (0-1.1); BILIRUBIN,TOTAL 0.9 mg/dl (0.2-1.3); CALCIUM 9.1 mg/dl (8.4-10.2); CREATININE 0.68 mg/dl (0.61-1.24); POTASSIUM 3.9 mmol/L (3.5-5.1); TOTAL PROTEIN 7.4 g/dl (6.1-8.1)
[2016-11-16] MEDS: ALLOPURINOL 100 MG TAB PO SCH ×2 (08:30→20:56)
[2016-11-16] MEDS: CLOPIDOGREL 75 MG TAB PO SCH (08:30)
[2016-11-16] MEDS: NIACIN 500 MG TAB PO SCH (08:30)
[2016-11-16] MEDS: DOCUSATE SODIUM 100 MG CAP PO SCH ×2 (08:30→20:56)
[2016-11-16] MEDS: ASPIRIN (EC) 81 MG TAB PO SCH (08:30)
[2016-11-16] MEDS: AMLODIPINE 5 MG TAB PO SCH (08:30)
[2016-11-16] MEDS: FISH OIL 1,000 MG CAP PO SCH (08:30)
[2016-11-16] MEDS: FINASTERIDE 5 MG TAB PO SCH (08:30)
[2016-11-16 08:37] LABS: ADD UMIC YES; UR ASCORBIC ACID NEGATIVE (NEGATIVE); UR BILIRUBIN (Dip) NEGATIVE (NEGATIVE); UR BLOOD (Dip) 1+ mg/dL (NEGATIVE); UR CLARITY CLEAR (CLEAR); UR COLOR YELLOW (YELLOW); UR GLUCOSE (Dip) NEGATIVE (NEGATIVE); UR KETONES (Dip) NEGATIVE (NEGATIVE); UR LEUKOCYTE ESTERASE (Dip) NEGATIVE Leu/ul (NEGATIVE); UR MUCUS MODERATE /HPF (NONE SEEN); UR NITRITE (Dip) NEGATIVE (NEGATIVE); UR RBC 1 /HPF (0-5); UR SPECIFIC GRAVITY (Dip) 1.024 (1.003-1.030); UR TOTAL PROTEIN (Dip) NEGATIVE (NEGATIVE); UR UROBILINOGEN (Dip) NEGATIVE (NEGATIVE)
--- NOTE | 2016-11-16 09:43 | CONS ---
Date/Time of Note Date/Time of Note DATE: 11/16/16 TIME: 09:42 Consult Date/Type/Reason Admit Date/Time Nov 15, 2016 at 22:00 Initial Consult Date Type of Consultation: CARDIOLOGY Subjective Discussed with staff pt is in rehab now he denies any chest pain or pressure no palpitation to me. He still has weakness on the right side and he still has some slurred speech, but slowly improving OBJECTIVE: General: no acute distress HEENT: NC/AT. pupils are equal. round. NECK: NO JVD. no stridor. CV: RRR. systolic murmur; no gallop or rubs. PULM: no wheezing or rhonchi. GI: SOFT, NT, ND, no rebound or guarding Extremity: trace B/L LE edema. no clubbing. neuro: awake and alert, OX3. + right arm weakness Psych: calm and pleasant ECHO: 1. Normal left ventricular systolic function. Normal left ventricular cavity size. Mild concentric left ventricular hypertrophy. Ejection fraction is visually estimated at 60-65 %. Tissue Doppler/Mitral Doppler indices are consistent with impaired relaxation (Stage I diastolic dysfunction). 2. Normal appearance and function of the mitral valve with trace physiologic regurgitation. 3. Estimated peak PA systolic pressure 25 mmHg. There is trace tricuspid regurgitation. Objective Vital Signs Date Time Temp Pulse Resp B/P Pulse Ox O2 Delivery O2 Flow Rate FiO2 11/16/16 07:58 98.2 69 18 171/70 96 Intake and Output 11/15/16 11/15/16 11/16/16 15:00 23:00 07:00 Intake Total 160 ml Balance 160 ml Results/Medications Result Diagram: 11/16/16 0619 11/16/16 0619 Results 24 hrs Laboratory Tests Test 11/16/16 06:19 11/16/16 06:40 White Blood Count 6.7 Red Blood Count 4.78 Hemoglobin 14.6 Hematocrit 43.0 Mean Corpuscular Volume 90.0 Mean Corpuscular Hemoglobin 30.5 Mean Corpuscular Hemoglobin Concent 34.0 Red Cell Distribution Width 13.4 Platelet Count 138 L Mean Platelet Volume 11.3 H Neutrophils % 59.7 Lymphocytes % 30.7 Monocytes % 7.2 Eosinophils % 1.8 Basophils % 0.3 Nucleated Red Blood Cells % 0.0 Neutrophils # (Manual) 4.0 Lymphocytes # 2.0 Monocytes # 0.5 Eosinophils # 0.1 Basophils # 0.0 Nucleated Red Blood Cells # 0.0 Sodium Level 143 Potassium Level 3.9 Chloride Level 102 Carbon Dioxide Level 28 Anion Gap 17 H Blood Urea Nitrogen 17 Creatinine 0.68 Glucose Level 101 Calcium Level 9.1 Total Bilirubin 0.9 Direct Bilirubin 0.00 Indirect Bilirubin 0.9 Aspartate Amino Transf (AST/SGOT) 42 Alanine Aminotransferase (ALT/SGPT) 36 Alkaline Phosphatase 88 Total Protein 7.4 Albumin 3.8 Globulin 3.60 H Albumin/Globulin Ratio 1.05 Urine Color YELLOW Urine Clarity CLEAR Urine pH 6.0 Urine Specific [place] 1.024 Urine Ketones NEGATIVE Urine Nitrite NEGATIVE Urine Bilirubin NEGATIVE Urine Urobilinogen NEGATIVE Urine Leukocyte Esterase NEGATIVE Urine Microscopic RBC 1 Urine Microscopic WBC 1 Urine Mucus MODERATE Urine Hemoglobin 1+ H Urine Glucose NEGATIVE Urine Total Protein NEGATIVE Medications Current Medications Amlodipine Besylate (Norvasc) 5 mg DAILY PO Last administered on 11/16/16 08: 30; Admin Dose 5 MG; Start 11/16/16 at 09:00 Finasteride (Proscar) 5 mg DAILY PO Last administered on 11/16/16 08:30; Admin Dose 5 MG; Start 11/16/16 at 09:00 Pantoprazole (Protonix Tab) 40 mg DAILY@06 PO Last administered on 11/16/16 06 :52; Admin Dose 40 MG; Start 11/16/16 at 06:00 Niacin (Niacin) 500 mg DAILY PO Last administered on 11/16/16 08:30; Admin Dose 500 MG; Start 11/16/16 at 09:00 Fish Oil (Fish Oil) 1,000 mg DAILY PO Last administered on 11/16/16 08:30; Admin Dose 1,000 MG; Start 11/16/16 at 09:00 Acetaminophen (Tylenol Tab) 650 mg Q4H PRN PO PAIN AND OR ELEVATED TEMP; Start 11/15/16 at 23:45 Allopurinol (Zyloprim) 100 mg BID PO Last administered on 11/16/16 08:30; Admin Dose 100 MG; Start 11/16/16 at 09:00 Aspirin (Halfprin) 81 mg DAILY PO Last administered on 11/16/16 08:30; Admin Dose 81 MG; Start 11/16/16 at 09:00 Atorvastatin Calcium (Lipitor) 40 mg DAILY@21 PO ; Start 11/16/16 at 21:00 Clopidogrel Bisulfate (plaVIX) 75 mg DAILY PO Last administered on 11/16/16 08 :30; Admin Dose 75 MG; Start 11/16/16 at 09:00 Docusate Sodium (Colace) 100 mg BID PO Last administered on 11/16/16 08:30; Admin Dose 100 MG; Start 11/16/16 at 09:00 Senna (Senokot) 1 tab HS PO ; Start 11/16/16 at 21:00 Bisacodyl (Dulcolax Supp) 10 mg DAILY PRN HI CONSTIPATION; Start 11/15/16 at 23 :45 Magnesium Hydroxide (Milk Of Mag) 30 ml BID PRN PO CONSTIPATION; Start at 23:45 Lactulose (Enulose) 20 gm DAILY PRN PO CONSTIPATION; Start 11/15/16 at 23:45 Assessment/Plan Chief Complaint/Hosp Course 1. CVA: S/P t-PA 2. HTN: stable now 3. severe PAD Cont PT f/u with neurology rec. Giacomo Salazar MD FACC Problems: GIACOMO SALAZAR MD Nov 16, 2016 09:43
--- NOTE | 2016-11-16 13:12 | CONS ---
DATE OF ADMISSION: 11/15/2016 DATE OF CONSULTATION: 11/16/2016 REHABILITATION POST ADMISSION PHYSICIAN EVALUATION REHABILITATION IMPAIRMENT CATEGORY: 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 ACTIVE COMORBIDITY: 1. Hemianopsia. 2. Dysphagia. 3. Hypertension. 4. BPH. 5. Impairments in self-care, mobility and cognition. HISTORY OF PRESENT ILLNESS: The patient is a 76-year-old, right- handed gentleman with a history of hypertension and BPH who was admitted with acute onset of right-sided weakness and vision impairment. The patient was given tPA. Head CT was negative for bleed, but MRI did demonstrate posterior ischemic infarct. The patient also noted to have significant dysphagia, dysarthria, and impairments in self-care, mobility, as compared to baseline. Patient has been cleared to transfer to the rehabilitation unit for comprehensive interdisciplinary rehab care. FUNCTIONAL HISTORY: Prior to recent events, he was independent in self-care tasks and mobility. Currently, patient requires maximal assist for self-care and moderate assist for mobility tasks. I have reviewed the preadmission screen, and patient's current functional status is consistent with the preadmission screen. SOCIAL HISTORY: Patient lives at home with family and hopes to return there upon discharge. PAST MEDICAL HISTORY: 1. Hypertension. 2. Coronary artery disease. MEDICATION: 1. Zyloprim 100 mg p.o. b.i.d. 2. Aspirin 81 mg p.o. daily. 3. Lipitor 40 mg p.o. daily. 4. Plavix 75 mg p.o. daily. 5. Proscar 5 mg p.o. daily. 6. Synthroid 88 mcg p.o. q.a.m. 7. Protonix 40 mg p.o. daily. ALLERGIES: SULFA. PHYSICAL EXAMINATION: VITAL SIGNS: Patient is currently afebrile with stable vital signs. HEENT: Patient with notable decreased vision. Pulm- CTA Abd-Soft, positive bowel sounds Cardiac- RRR NEURO: He can follow simple one-step commands. He demonstrates good strength in the left upper and lower extremity. He demonstrates 4- right upper extremity strength, 4+ right lower extremity strength. He does have impaired static and dynamic balance. PLAN: The patient has been admitted for comprehensive interdisciplinary acute rehab and is anticipated to tolerate 3 hours of daily therapy in divided doses for at least 5/7 days a week. The treatment plan will include: 1. Physical therapy to focus on bed mobility, transfers and household ambulation with goal of having patient reach a standby assist level. 2. Occupational therapy to focus on hygiene, grooming, dressing, bathing and toileting activities with goal of having patient reach a standby assist level. 3. Rehabilitation nursing for carry over of therapeutic interventions, the goal of continent to bowel and bladder, and the goal of patient and family education with regards to the aforementioned issues. ESTIMATED LENGTH OF STAY: Ten days. DISPOSITION GOAL: Home. Rehabilitation Barrier: Cognition Intervention for Barrier: Speech Therapy I acknowledged. I performed a full physical examination on this patient within 24 hours of admission to the rehabilitation unit and believe the patient is a good candidate for comprehensive interdisciplinary rehab care and is anticipated to make reasonable goals in a reasonable period of time as outlined above. Dictated By: Tommy Almeida MD /oscar/annita /Document#: [id number] KRISTEN
--- NOTE | 2016-11-16 15:03 | CONS ---
Date/Time of Note Date/Time of Note DATE: 11/16/16 TIME: 14:57 Assessment/Plan Assessment/Plan Chief Complaint/Hosp Course This is a 76-year-old male who was treated with acute cerebrovascular accident who is now being admitted to acute rehabilitation unit for further comprehensive interdisciplinary therapy. 1. CVA status post TPA -Continue aspirin, Plavix(dual antiplatelet for 3 months followed by Plavix indefinite) and , statin 2. Hypertension -On Norvasc 3.BPH: - On finasteride Plan: Continue with PT/OT/ST eval & tx. Possibly 60 minutes was spent on this consultation. Case discussed with Dr. Keenan Problems: Consultation Date/Type/Reason Admit Date/Time Nov 15, 2016 at 22:00 Hx of Present Illness This is a 76-year-old male with a past medical history of hypertension, BPH, who was admitted at [facility] secondary to acute onset of right-sided weakness and vision impairment secondary to acute posterior ischemic infarct. Patient was treated with TPA. He was evaluated by neurology and was recommended on dual antiplatelet aspirin, Plavix for 3 months and thereafter Plavix only. Patient continued to have impairment in self-care and mobility and was accepted to acute rehabilitation unit for further comprehensive interdisciplinary rehab care. Currently, patient denies any chest pain, palpitation, shortness of breath, loss of consciousness, newly identified focal deficit, nausea, vomiting, abdominal pain or other constitutional symptoms. Labs and vital signs grossly unremarkable. 12 point review of system was assessed and is negative other than what is mentioned in HPI. Past Medical History see HPI Past Surgical History see HPI Past Surgical Hx: noncontributory Social History Denied any history of smoking, alcohol or illicit drug use. Smoking Status: Never smoker Exam/Review of Systems Vital Signs Vitals Vital Signs Date Time Temp Pulse Resp B/P Pulse Ox O2 Delivery O2 Flow Rate FiO2 11/16/16 07:58 98.2 69 18 171/70 96 Intake and Output 11/15/16 11/15/16 11/16/16 15:00 23:00 07:00 Intake Total 160 ml Balance 160 ml Exam General: Well developed,adequately built, not in any acute distress . HEENT: Normocephalic, Atraumatic, No laceration or hematoma; Eyes: PEERL, Conjunctiva clear, Anicteric sclera Neck: Supple without any lymphadenopathy, nontender, no JVD, no carotid bruits, trachea midline, no thyromegaly Cardiac: S1, S2 auscultated, regular rhythm and rate, no mumurs or gallop Pulmonary: Normal respiratory effort. Chest clear to auscultation bilaterally, no adventitious breath sounds GI: Abdomen normal to inspection. Soft, non tender, non- distended, no masses, no rebound tenderness or guarding. Bowel sounds active on all four quadrants Genitourinary: Deferred Extremities: 4+ right upper and lower extremities. Left upper and lower with 5 out of 5. No cyanosis, clubbing, or edema. Pulses [2+] bilaterally.. No focal weakness appreciated. Neurologic: Speech mostly clear. Alert to person, place, time, and situation. Affect appropriate, intact sensation. Skin: Clean,dry, and intact. No ecchymosis, no rashes, or lesions Results Result Diagram: 11/16/16 0619 11/16/16 0619 Results 24 hrs Laboratory Tests Test 11/16/16 06:19 11/16/16 06:40 White Blood Count 6.7 Red Blood Count 4.78 Hemoglobin 14.6 Hematocrit 43.0 Mean Corpuscular Volume 90.0 Mean Corpuscular Hemoglobin 30.5 Mean Corpuscular Hemoglobin Concent 34.0 Red Cell Distribution Width 13.4 Platelet Count 138 L Mean Platelet Volume 11.3 H Neutrophils % 59.7 Lymphocytes % 30.7 Monocytes % 7.2 Eosinophils % 1.8 Basophils % 0.3 Nucleated Red Blood Cells % 0.0 Neutrophils # (Manual) 4.0 Lymphocytes # 2.0 Monocytes # 0.5 Eosinophils # 0.1 Basophils # 0.0 Nucleated Red Blood Cells # 0.0 Sodium Level 143 Potassium Level 3.9 Chloride Level 102 Carbon Dioxide Level 28 Anion Gap 17 H Blood Urea Nitrogen 17 Creatinine 0.68 Glucose Level 101 Calcium Level 9.1 Total Bilirubin 0.9 Direct Bilirubin 0.00 Indirect Bilirubin 0.9 Aspartate Amino Transf (AST/SGOT) 42 Alanine Aminotransferase (ALT/SGPT) 36 Alkaline Phosphatase 88 Total Protein 7.4 Albumin 3.8 Globulin 3.60 H Albumin/Globulin Ratio 1.05 Urine Color YELLOW Urine Clarity CLEAR Urine pH 6.0 Urine Specific [place] 1.024 Urine Ketones NEGATIVE Urine Nitrite NEGATIVE Urine Bilirubin NEGATIVE Urine Urobilinogen NEGATIVE Urine Leukocyte Esterase NEGATIVE Urine Microscopic RBC 1 Urine Microscopic WBC 1 Urine Mucus MODERATE Urine Hemoglobin 1+ H Urine Glucose NEGATIVE Urine Total Protein NEGATIVE Medications Medications Current Medications Amlodipine Besylate (Norvasc) 5 mg DAILY PO Last administered on 11/16/16 08: 30; Admin Dose 5 MG; Start 11/16/16 at 09:00 Finasteride (Proscar) 5 mg DAILY PO Last administered on 11/16/16 08:30; Admin Dose 5 MG; Start 11/16/16 at 09:00 Pantoprazole (Protonix Tab) 40 mg DAILY@06 PO Last administered on 11/16/16 06 :52; Admin Dose 40 MG; Start 11/16/16 at 06:00 Niacin (Niacin) 500 mg DAILY PO Last administered on 11/16/16 08:30; Admin Dose 500 MG; Start 11/16/16 at 09:00 Fish Oil (Fish Oil) 1,000 mg DAILY PO Last administered on 11/16/16 08:30; Admin Dose 1,000 MG; Start 11/16/16 at 09:00 Acetaminophen (Tylenol Tab) 650 mg Q4H PRN PO PAIN AND OR ELEVATED TEMP; Start 11/15/16 at 23:45 Allopurinol (Zyloprim) 100 mg BID PO Last administered on 11/16/16 08:30; Admin Dose 100 MG; Start 11/16/16 at 09:00 Aspirin (Halfprin) 81 mg DAILY PO Last administered on 11/16/16 08:30; Admin Dose 81 MG; Start 11/16/16 at 09:00 Atorvastatin Calcium (Lipitor) 40 mg DAILY@21 PO ; Start 11/16/16 at 21:00 Clopidogrel Bisulfate (plaVIX) 75 mg DAILY PO Last administered on 11/16/16 08 :30; Admin Dose 75 MG; Start 11/16/16 at 09:00 Docusate Sodium (Colace) 100 mg BID PO Last administered on 11/16/16 08:30; Admin Dose 100 MG; Start 11/16/16 at 09:00 Senna (Senokot) 1 tab HS PO ; Start 11/16/16 at 21:00 Bisacodyl (Dulcolax Supp) 10 mg DAILY PRN HI CONSTIPATION; Start 11/15/16 at 23 :45 Magnesium Hydroxide (Milk Of Mag) 30 ml BID PRN PO CONSTIPATION; Start at 23:45 Lactulose (Enulose) 20 gm DAILY PRN PO CONSTIPATION; Start 11/15/16 at 23:45 KAITE CALVO NP Nov 16, 2016 15:03
[2016-11-16 20:00] VITALS: BP 127/60; RESP 18
[2016-11-16] MEDS: ATORVASTATIN 40 MG TAB PO SCH (20:56)
[2016-11-16] MEDS: SENNA TAB PO SCH (20:56)
[2016-11-17 02:00] VITALS: BP 130/68; RESP 18
[2016-11-17] MEDS: PANTOPRAZOLE (EC) 40 MG TAB PO SCH (06:31)
[2016-11-17] MEDS: LEVOTHYROXINE 88 MCG TAB PO SCH (06:38)
--- NOTE | 2016-11-17 07:00 | CONS ---
DATE OF ADMISSION: 11/15/2016 DATE OF CONSULTATION: TYPE OF CONSULTATION: Psychological. REFERRING PHYSICIAN: Tommy Almeida MD CONSULTING PSYCHOLOGIST: Kiko Chen, Ph.D. REASON FOR CONSULTATION: Consultation was requested by Dr. Narendra Almeida in order to evaluate the cognitive and emotional function of this patient related to his present medical condition. HISTORY OF PRESENT ILLNESS: The patient is a 76-year-old male. He has a history of hypertension and had an acute onset of weakness and vision impairment. The patient did have an MRI, which showed a posterior ischemic infarct. Patient had some weakness/poor control and right-sided vision loss. Patient is presently complaining of itchiness in his eyes. The patient is concerned about his present medical condition but is very motivated to try and recover and return home. FAMILY/SOCIAL HISTORY: Patient lives with his and nephew. Patient's was present with his permission during the consultation, and there were 2 nieces that were present as well with his permission. There was some language difficulty because the patient speaks mainly [place]. The interview was conducted in both [place] and [place] with the assistance of his family. The interviewer also does speak some [place] as well. MEDICATION: The patient is currently not on any psychotropic medication. SUBSTANCE USE: The patient reports that he does not smoke. The patient reports he does not use alcohol or other drugs. MENTAL STATUS EXAMINATION: APPEARANCE: Patient was seen in bed. He is of average height and weight. He is balding and has a mustache. Patient reports that he is right-handed. BEHAVIOR: Patient was cooperative during the consultation. The patient did attempt to answer all questions presented to him by the interviewer. MOOD AND AFFECT: The patient's mood appears to be slightly depressed. The patient does admit to feeling depressed at the present time. Affect does appear to be slightly anxious. PERCEPTION: The patient reports no hallucinations or delusions. Patient was alert to person, place, situation and time. MEMORY AND COGNITION: The patient's memory and cognition appear to be somewhat impaired. It is likely that this is a result of his stroke. Patient could not remember the hospital name. The patient was unable to say who the vice president sales and marketing is. He could not say who the governor of the state is or the mayor of the city. Patient was able to say the month and the year but had difficulty coming up with the year. Patient was unable to spell world backwards. The patient was able to do 1 serial 7 subtraction and actually was eventually able to do 2 by counting backwards on his fingers but could not go any further. Overall, there does appear to be some light memory problems present, and it likely relates to his recent stroke. INTELLIGENCE: Intelligence appears to fall in the average range when he is functioning well. INSIGHT: Fair. JUDGMENT: Fair. THOUGHT CONTENT: Patient is concerned about his present medical condition. The patient does want to recover and return home. The patient is motivated to leave the hospital as soon as he can. DISCUSSION: The patient can likely benefit from some cognitive/behavioral psychotherapy-[place] on the unit. Psychotherapy would focus on his underlying level of frustration about his recent medical problems and his stroke. DIAGNOSTIC IMPRESSION: 1. 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 2. 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 Thank you very much, Dr. Narendra Almeida, for referring this individual. Please do not hesitate to call if you have any further questions. Dictated By: Kiko Chen, PHD /fnt/ashley /Document#: [id number]
[2016-11-17 07:30] VITALS: BP 136/61; RESP 20
--- NOTE | 2016-11-17 09:00 | CONS ---
Date/Time of Note Date/Time of Note DATE: 11/17/16 TIME: 08:59 Consult Date/Type/Reason Admit Date/Time Nov 15, 2016 at 22:00 Type of Consultation: CARDIOLOGY Subjective Discussed with staff pt is in rehab now he denies any chest pain or pressure no palpitation to me. He still has weakness and poor coordination of his right arm. OBJECTIVE: General: no acute distress HEENT: NC/AT. pupils are equal. round. NECK: NO JVD. no stridor. CV: RRR. systolic murmur; no gallop or rubs. PULM: no wheezing or rhonchi. GI: SOFT, NT, ND, no rebound or guarding Extremity: trace B/L LE edema. no clubbing. neuro: awake and alert, OX3. + right arm weakness Psych: calm and pleasant ECHO: 1. Normal left ventricular systolic function. Normal left ventricular cavity size. Mild concentric left ventricular hypertrophy. Ejection fraction is visually estimated at 60-65 %. Tissue Doppler/Mitral Doppler indices are consistent with impaired relaxation (Stage I diastolic dysfunction). 2. Normal appearance and function of the mitral valve with trace physiologic regurgitation. 3. Estimated peak PA systolic pressure 25 mmHg. There is trace tricuspid regurgitation. Objective Vital Signs Date Time Temp Pulse Resp B/P Pulse Ox O2 Delivery O2 Flow Rate FiO2 11/17/16 07:30 97.8 71 20 136/61 97 Intake and Output 11/16/16 11/16/16 11/17/16 15:00 23:00 07:00 Intake Total 720 ml 1320 ml 700 ml Output Total 650 ml Balance 720 ml 670 ml 700 ml Results/Medications Result Diagram: 11/16/1661811/16/16618 Medications Current Medications Amlodipine Besylate (Norvasc) 5 mg DAILY PO Last administered on 11/16/16 08: 30; Admin Dose 5 MG; Start 11/16/16 at 09:00 Finasteride (Proscar) 5 mg DAILY PO Last administered on 11/16/16 08:30; Admin Dose 5 MG; Start 11/16/16 at 09:00 Pantoprazole (Protonix Tab) 40 mg DAILY@06 PO Last administered on 11/17/16 06 :31; Admin Dose 40 MG; Start 11/16/16 at 06:00 Niacin (Niacin) 500 mg DAILY PO Last administered on 11/16/16 08:30; Admin Dose 500 MG; Start 11/16/16 at 09:00 Fish Oil (Fish Oil) 1,000 mg DAILY PO Last administered on 11/16/16 08:30; Admin Dose 1,000 MG; Start 11/16/16 at 09:00 Acetaminophen (Tylenol Tab) 650 mg Q4H PRN PO PAIN AND OR ELEVATED TEMP; Start 11/15/16 at 23:45 Allopurinol (Zyloprim) 100 mg BID PO Last administered on 11/16/16 20:56; Admin Dose 100 MG; Start 11/16/16 at 09:00 Aspirin (Halfprin) 81 mg DAILY PO Last administered on 11/16/16 08:30; Admin Dose 81 MG; Start 11/16/16 at 09:00 Atorvastatin Calcium (Lipitor) 40 mg DAILY@21 PO Last administered on 20:56; Admin Dose 40 MG; Start 11/16/16 at 21:00 Clopidogrel Bisulfate (plaVIX) 75 mg DAILY PO Last administered on 11/16/16 08 :30; Admin Dose 75 MG; Start 11/16/16 at 09:00 Docusate Sodium (Colace) 100 mg BID PO Last administered on 11/16/16 20:56; Admin Dose 100 MG; Start 11/16/16 at 09:00 Senna (Senokot) 1 tab HS PO Last administered on 11/16/16 20:56; Admin Dose 1 TAB; Start 11/16/16 at 21:00 Bisacodyl (Dulcolax Supp) 10 mg DAILY PRN [place] CONSTIPATION; Start 11/15/16 at 23 :45 Magnesium Hydroxide (Milk Of Mag) 30 ml BID PRN PO CONSTIPATION; Start at 23:45 Lactulose (Enulose) 20 gm DAILY PRN PO CONSTIPATION; Start 11/15/16 at 23:45 Assessment/Plan Chief Complaint/Hosp Course 1. CVA: S/P t-PA 2. HTN: stable now 3. severe PAD Cont PT f/u with neurology rec. Giacomo Salazar MD [facility] Problems: GIACOMO SALAZAR MD Nov 17, 2016 09:00
[2016-11-17] MEDS: NIACIN 500 MG TAB PO SCH (09:20)
[2016-11-17] MEDS: ASPIRIN (EC) 81 MG TAB PO SCH (09:20)
[2016-11-17] MEDS: ALLOPURINOL 100 MG TAB PO SCH ×2 (09:21→21:31)
[2016-11-17] MEDS: AMLODIPINE 5 MG TAB PO SCH (09:21)
[2016-11-17] MEDS: FINASTERIDE 5 MG TAB PO SCH (09:21)
[2016-11-17] MEDS: DOCUSATE SODIUM 100 MG CAP PO SCH ×2 (09:21→21:31)
[2016-11-17] MEDS: FISH OIL 1,000 MG CAP PO SCH (09:21)
[2016-11-17] MEDS: CLOPIDOGREL 75 MG TAB PO SCH (09:21)
--- NOTE | 2016-11-17 14:01 | CONS ---
Date/Time of Note Date/Time of Note DATE: 11/17/16 TIME: 14:01 Consult Date/Type/Reason Admit Date/Time Nov 15, 2016 at 22:00 Initial Consult Date Type of Consultation: CARDIOLOGY Subjective No new complaints Objective pulm-cta mod assist Vital Signs Date Time Temp Pulse Resp B/P Pulse Ox O2 Delivery O2 Flow Rate FiO2 11/17/16 07:30 97.8 71 20 136/61 97 Intake and Output 11/16/16 11/16/16 11/17/16 15:00 23:00 07:00 Intake Total 720 ml 1320 ml 700 ml Output Total 650 ml Balance 720 ml 670 ml 700 ml Results/Medications Result Diagram: 11/16/1661811/16/16618 Medications Current Medications Amlodipine Besylate (Norvasc) 5 mg DAILY PO Last administered on 11/17/16 09: 21; Admin Dose 5 MG; Start 11/16/16 at 09:00 Finasteride (Proscar) 5 mg DAILY PO Last administered on 11/17/16 09:21; Admin Dose 5 MG; Start 11/16/16 at 09:00 Pantoprazole (Protonix Tab) 40 mg DAILY@06 PO Last administered on 11/17/16 06 :31; Admin Dose 40 MG; Start 11/16/16 at 06:00 Niacin (Niacin) 500 mg DAILY PO Last administered on 11/17/16 09:20; Admin Dose 500 MG; Start 11/16/16 at 09:00 Fish Oil (Fish Oil) 1,000 mg DAILY PO Last administered on 11/17/16 09:21; Admin Dose 1,000 MG; Start 11/16/16 at 09:00 Acetaminophen (Tylenol Tab) 650 mg Q4H PRN PO PAIN AND OR ELEVATED TEMP; Start 11/15/16 at 23:45 Allopurinol (Zyloprim) 100 mg BID PO Last administered on 11/17/16 09:21; Admin Dose 100 MG; Start 11/16/16 at 09:00 Aspirin (Halfprin) 81 mg DAILY PO Last administered on 11/17/16 09:20; Admin Dose 81 MG; Start 11/16/16 at 09:00 Atorvastatin Calcium (Lipitor) 40 mg DAILY@21 PO Last administered on 20:56; Admin Dose 40 MG; Start 11/16/16 at 21:00 Clopidogrel Bisulfate (plaVIX) 75 mg DAILY PO Last administered on 11/17/16 09 :21; Admin Dose 75 MG; Start 11/16/16 at 09:00 Docusate Sodium (Colace) 100 mg BID PO Last administered on 11/17/16 09:21; Admin Dose 100 MG; Start 11/16/16 at 09:00 Senna (Senokot) 1 tab HS PO Last administered on 11/16/16 20:56; Admin Dose 1 TAB; Start 11/16/16 at 21:00 Bisacodyl (Dulcolax Supp) 10 mg DAILY PRN [place] CONSTIPATION; Start 11/15/16 at 23 :45 Magnesium Hydroxide (Milk Of Mag) 30 ml BID PRN PO CONSTIPATION; Start at 23:45 Lactulose (Enulose) 20 gm DAILY PRN PO CONSTIPATION; Start 11/15/16 at 23:45 Assessment/Plan Additional Assessment/Plan Rehab- 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 Continue rehab theapies Hemianopsia. Dysphagia. Hypertension. BPH. LONNIE SYLVESTER MD Nov 17, 2016 14:01
--- NOTE | 2016-11-17 14:48 | CONS ---
Date/Time of Note Date/Time of Note DATE: 11/17/16 TIME: 14:47 Assessment/Plan Assessment/Plan Chief Complaint/Hosp Course 1. CVA status post TPA -Continue aspirin, Plavix(dual antiplatelet for 3 months followed by Plavix indefinite) and , statin 2. Hypertension -On Norvasc 3.BPH: - On finasteride Plan: Continue with PT/OT/ST eval & tx. Case discussed with Dr. Keenan Problems: Consultation Date/Type/Reason Admit Date/Time Nov 15, 2016 at 22:00 Initial Consult Date Type of Consultation: CARDIOLOGY 24 HR Interval Summary Free Text/Dictation Doing well. Denies any complaints. Exam/Review of Systems Vital Signs Vitals Vital Signs Date Time Temp Pulse Resp B/P Pulse Ox O2 Delivery O2 Flow Rate FiO2 11/17/16 07:30 97.8 71 20 136/61 97 Intake and Output 11/16/16 11/16/16 11/17/16 15:00 23:00 07:00 Intake Total 720 ml 1320 ml 700 ml Output Total 650 ml Balance 720 ml 670 ml 700 ml Exam General: Well developed,adequately built, not in any acute distress . HEENT: Normocephalic, Atraumatic, No laceration or hematoma; Eyes: PEERL, Conjunctiva clear, Anicteric sclera Neck: Supple without any lymphadenopathy, nontender, no JVD, no carotid bruits, trachea midline, no thyromegaly Cardiac: S1, S2 auscultated, regular rhythm and rate, no mumurs or gallop Pulmonary: Normal respiratory effort. Chest clear to auscultation bilaterally, no adventitious breath sounds GI: Abdomen normal to inspection. Soft, non tender, non- distended, no masses, no rebound tenderness or guarding. Bowel sounds active on all four quadrants Genitourinary: Deferred Extremities: 4/5 right upper and lower extremities. Left upper and lower with 5 out of 5. No cyanosis, clubbing, or edema. Pulses [2+] bilaterally.. No focal weakness appreciated. Neurologic: Speech mostly clear. Alert to person, place, time, and situation. Affect appropriate, intact sensation. Skin: Clean,dry, and intact. No ecchymosis, no rashes, or lesions Results Result Diagram: 8/30/17 0619 8/30/17 0619 Medications Medications Current Medications Amlodipine Besylate (Norvasc) 5 mg DAILY PO Last administered on 11/17/16 09: 21; Admin Dose 5 MG; Start 11/16/16 at 09:00 Finasteride (Proscar) 5 mg DAILY PO Last administered on 11/17/16 09:21; Admin Dose 5 MG; Start 11/16/16 at 09:00 Pantoprazole (Protonix Tab) 40 mg DAILY@06 PO Last administered on 11/17/16 06 :31; Admin Dose 40 MG; Start 11/16/16 at 06:00 Niacin (Niacin) 500 mg DAILY PO Last administered on 11/17/16 09:20; Admin Dose 500 MG; Start 11/16/16 at 09:00 Fish Oil (Fish Oil) 1,000 mg DAILY PO Last administered on 11/17/16 09:21; Admin Dose 1,000 MG; Start 11/16/16 at 09:00 Acetaminophen (Tylenol Tab) 650 mg Q4H PRN PO PAIN AND OR ELEVATED TEMP; Start 11/15/16 at 23:45 Allopurinol (Zyloprim) 100 mg BID PO Last administered on 11/17/16 09:21; Admin Dose 100 MG; Start 11/16/16 at 09:00 Aspirin (Halfprin) 81 mg DAILY PO Last administered on 11/17/16 09:20; Admin Dose 81 MG; Start 11/16/16 at 09:00 Atorvastatin Calcium (Lipitor) 40 mg DAILY@21 PO Last administered on 20:56; Admin Dose 40 MG; Start 11/16/16 at 21:00 Clopidogrel Bisulfate (plaVIX) 75 mg DAILY PO Last administered on 11/17/16 09 :21; Admin Dose 75 MG; Start 11/16/16 at 09:00 Docusate Sodium (Colace) 100 mg BID PO Last administered on 11/17/16 09:21; Admin Dose 100 MG; Start 11/16/16 at 09:00 Senna (Senokot) 1 tab HS PO Last administered on 11/16/16 20:56; Admin Dose 1 TAB; Start 11/16/16 at 21:00 Bisacodyl (Dulcolax Supp) 10 mg DAILY PRN [place] CONSTIPATION; Start 8/29/17 at 23 :45 Magnesium Hydroxide (Milk Of Mag) 30 ml BID PRN PO CONSTIPATION; Start at 23:45 Lactulose (Enulose) 20 gm DAILY PRN PO CONSTIPATION; Start 11/15/16 at 23:45 KATIE CALVO NP Nov 17, 2016 14:48
[2016-11-17 19:44] VITALS: BP 127/60; RESP 19
[2016-11-17] MEDS: ATORVASTATIN 40 MG TAB PO SCH (21:31)
[2016-11-17] MEDS: SENNA TAB PO SCH (21:31)
[2016-11-18 02:16] VITALS: BP 118/58; RESP 20
[2016-11-18] MEDS: PANTOPRAZOLE (EC) 40 MG TAB PO SCH (06:42)
[2016-11-18] MEDS: LEVOTHYROXINE 88 MCG TAB PO SCH (06:43)
[2016-11-18 07:57] VITALS: BP 135/76; RESP 18
[2016-11-18] MEDS: NIACIN 500 MG TAB PO SCH (09:14)
[2016-11-18] MEDS: FISH OIL 1,000 MG CAP PO SCH (09:14)
[2016-11-18] MEDS: DOCUSATE SODIUM 100 MG CAP PO SCH ×2 (09:14→20:50)
[2016-11-18] MEDS: CLOPIDOGREL 75 MG TAB PO SCH (09:15)
[2016-11-18] MEDS: ASPIRIN (EC) 81 MG TAB PO SCH (09:15)
[2016-11-18] MEDS: ALLOPURINOL 100 MG TAB PO SCH ×2 (09:15→20:49)
[2016-11-18] MEDS: FINASTERIDE 5 MG TAB PO SCH (09:15)
[2016-11-18] MEDS: AMLODIPINE 5 MG TAB PO SCH (09:18)
--- NOTE | 2016-11-18 11:59 | CONS ---
Date/Time of Note Date/Time of Note DATE: 11/18/16 TIME: 11:58 Consult Date/Type/Reason Admit Date/Time Nov 15, 2016 at 22:00 Type of Consultation: CARDIOLOGY Subjective comfortable Objective pulm-cta min assist 50 feet Vital Signs Date Time Temp Pulse Resp B/P Pulse Ox O2 Delivery O2 Flow Rate FiO2 11/18/16 07:57 98.3 75 18 135/76 97 Intake and Output 11/17/16 11/17/16 11/18/16 15:00 23:00 07:00 Intake Total 640 ml 350 ml Balance 640 ml 350 ml Results/Medications Result Diagram: 11/16/1619 11/16/1619 Medications Current Medications Amlodipine Besylate (Norvasc) 5 mg DAILY PO Last administered on 11/18/16 09:18 ; Admin Dose 5 MG; Start 11/16/16 at 09:00 Finasteride (Proscar) 5 mg DAILY PO Last administered on 11/18/16 09:15; Admin Dose 5 MG; Start 11/16/16 at 09:00 Pantoprazole (Protonix Tab) 40 mg DAILY@06 PO Last administered on 11/18/16 06: 42; Admin Dose 40 MG; Start 11/16/16 at 06:00 Niacin (Niacin) 500 mg DAILY PO Last administered on 11/18/16 09:14; Admin Dose 500 MG; Start 11/16/16 at 09:00 Fish Oil (Fish Oil) 1,000 mg DAILY PO Last administered on 11/18/16 09:14; Admin Dose 1,000 MG; Start 11/16/16 at 09:00 Acetaminophen (Tylenol Tab) 650 mg Q4H PRN PO PAIN AND OR ELEVATED TEMP; Start 11/15/16 at 23:45 Allopurinol (Zyloprim) 100 mg BID PO Last administered on 11/18/16 09:15; Admin Dose 100 MG; Start 11/16/16 at 09:00 Aspirin (Halfprin) 81 mg DAILY PO Last administered on 11/18/16 09:15; Admin Dose 81 MG; Start 11/16/16 at 09:00 Atorvastatin Calcium (Lipitor) 40 mg DAILY@21 PO Last administered on 21:31; Admin Dose 40 MG; Start 11/16/16 at 21:00 Clopidogrel Bisulfate (plaVIX) 75 mg DAILY PO Last administered on 11/18/16 09: 15; Admin Dose 75 MG; Start 11/16/16 at 09:00 Docusate Sodium (Colace) 100 mg BID PO Last administered on 11/18/16 09:14; Admin Dose 100 MG; Start 11/16/16 at 09:00 Senna (Senokot) 1 tab HS PO Last administered on 11/17/16 21:31; Admin Dose 1 TAB; Start 11/16/16 at 21:00 Bisacodyl (Dulcolax Supp) 10 mg DAILY PRN [place] CONSTIPATION; Start 11/15/16 at 23 :45 Magnesium Hydroxide (Milk Of Mag) 30 ml BID PRN PO CONSTIPATION; Start at 23:45 Lactulose (Enulose) 20 gm DAILY PRN PO CONSTIPATION; Start 11/15/16 at 23:45 Assessment/Plan Additional Assessment/Plan Rehab- 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 Continue rehab program Hemianopsia. Dysphagia. Hypertension. BPH. LONNIE SYLVESTER MD Nov 18, 2016 11:59
--- NOTE | 2016-11-18 15:48 | CONS ---
Date/Time of Note Date/Time of Note DATE: 11/18/16 TIME: 15:47 Consult Date/Type/Reason Admit Date/Time Nov 15, 2016 at 22:00 Type of Consultation: CARDIOLOGY Subjective Discussed with staff and nephew. pt is in rehab now he denies any chest pain or pressure no palpitation to me. He still has weakness and poor coordination of his right arm. OBJECTIVE: General: no acute distress HEENT: NC/AT. pupils are equal. round. NECK: NO JVD. no stridor. CV: RRR. systolic murmur; no gallop or rubs. PULM: no wheezing or rhonchi. GI: SOFT, NT, ND, no rebound or guarding Extremity: trace B/L LE edema. no clubbing. neuro: awake and alert, OX3. + right arm weakness Psych: calm and pleasant Objective Vital Signs Date Time Temp Pulse Resp B/P Pulse Ox O2 Delivery O2 Flow Rate FiO2 11/18/16 07:57 98.3 75 18 135/76 97 Intake and Output 11/17/16 11/17/16 11/18/16 15:00 23:00 07:00 Intake Total 640 ml 350 ml Balance 640 ml 350 ml Results/Medications Result Diagram: 11/16/1661811/16/1619 Medications Current Medications Amlodipine Besylate (Norvasc) 5 mg DAILY PO Last administered on 11/18/16 09:18 ; Admin Dose 5 MG; Start 11/16/16 at 09:00 Finasteride (Proscar) 5 mg DAILY PO Last administered on 11/18/16 09:15; Admin Dose 5 MG; Start 11/16/16 at 09:00 Pantoprazole (Protonix Tab) 40 mg DAILY@06 PO Last administered on 11/18/16 06: 42; Admin Dose 40 MG; Start 11/16/16 at 06:00 Niacin (Niacin) 500 mg DAILY PO Last administered on 11/18/16 09:14; Admin Dose 500 MG; Start 11/16/16 at 09:00 Fish Oil (Fish Oil) 1,000 mg DAILY PO Last administered on 11/18/16 09:14; Admin Dose 1,000 MG; Start 11/16/16 at 09:00 Acetaminophen (Tylenol Tab) 650 mg Q4H PRN PO PAIN AND OR ELEVATED TEMP; Start 11/15/16 at 23:45 Allopurinol (Zyloprim) 100 mg BID PO Last administered on 11/18/16 09:15; Admin Dose 100 MG; Start 11/16/16 at 09:00 Aspirin (Halfprin) 81 mg DAILY PO Last administered on 11/18/16 09:15; Admin Dose 81 MG; Start 11/16/16 at 09:00 Atorvastatin Calcium (Lipitor) 40 mg DAILY@21 PO Last administered on 21:31; Admin Dose 40 MG; Start 11/16/16 at 21:00 Clopidogrel Bisulfate (plaVIX) 75 mg DAILY PO Last administered on 11/18/16 09: 15; Admin Dose 75 MG; Start 11/16/16 at 09:00 Docusate Sodium (Colace) 100 mg BID PO Last administered on 11/18/16 09:14; Admin Dose 100 MG; Start 11/16/16 at 09:00 Senna (Senokot) 1 tab HS PO Last administered on 11/17/16 21:31; Admin Dose 1 TAB; Start 11/16/16 at 21:00 Bisacodyl (Dulcolax Supp) 10 mg DAILY PRN [place] CONSTIPATION; Start 11/15/16 at 23 :45 Magnesium Hydroxide (Milk Of Mag) 30 ml BID PRN PO CONSTIPATION; Start at 23:45 Lactulose (Enulose) 20 gm DAILY PRN PO CONSTIPATION; Start 11/15/16 at 23:45 Assessment/Plan Chief Complaint/Hosp Course 1. CVA: S/P t-PA 2. HTN: stable now 3. severe PAD Cont PT f/u with neurology rec. ASA Giacomo Salazar MD [facility] Problems: GIACOMO SALAZAR MD Nov 18, 2016 15:48
--- NOTE | 2016-11-18 16:31 | CONS ---
Date/Time of Note Date/Time of Note DATE: 11/18/16 TIME: 16:18 Consult Date/Type/Reason Admit Date/Time Nov 15, 2016 at 22:00 Initial Consult Date Type of Consultation: IM Subjective Comfortable, no events. Objective Vital Signs Date Time Temp Pulse Resp B/P Pulse Ox O2 Delivery O2 Flow Rate FiO2 11/18/16 07:57 98.3 75 18 135/76 97 Intake and Output 11/17/16 11/17/16 11/18/16 15:00 23:00 07:00 Intake Total 640 ml 350 ml Balance 640 ml 350 ml Exam comfortable mmm PEERL cvs s1s2 rs clear bilaterally abdo soft nt bs ext no cy cl óscar Results/Medications Result Diagram: 11/16/1661811/16/16618 Medications Current Medications Amlodipine Besylate (Norvasc) 5 mg DAILY PO Last administered on 11/18/16 09:18 ; Admin Dose 5 MG; Start 11/16/16 at 09:00 Finasteride (Proscar) 5 mg DAILY PO Last administered on 11/18/16 09:15; Admin Dose 5 MG; Start 11/16/16 at 09:00 Pantoprazole (Protonix Tab) 40 mg DAILY@06 PO Last administered on 11/18/16 06: 42; Admin Dose 40 MG; Start 11/16/16 at 06:00 Niacin (Niacin) 500 mg DAILY PO Last administered on 11/18/16 09:14; Admin Dose 500 MG; Start 11/16/16 at 09:00 Fish Oil (Fish Oil) 1,000 mg DAILY PO Last administered on 11/18/16 09:14; Admin Dose 1,000 MG; Start 11/16/16 at 09:00 Acetaminophen (Tylenol Tab) 650 mg Q4H PRN PO PAIN AND OR ELEVATED TEMP; Start 11/15/16 at 23:45 Allopurinol (Zyloprim) 100 mg BID PO Last administered on 11/18/16 09:15; Admin Dose 100 MG; Start 11/16/16 at 09:00 Aspirin (Halfprin) 81 mg DAILY PO Last administered on 11/18/16 09:15; Admin Dose 81 MG; Start 11/16/16 at 09:00 Atorvastatin Calcium (Lipitor) 40 mg DAILY@21 PO Last administered on 21:31; Admin Dose 40 MG; Start 11/16/16 at 21:00 Clopidogrel Bisulfate (plaVIX) 75 mg DAILY PO Last administered on 11/18/16 09: 15; Admin Dose 75 MG; Start 11/16/16 at 09:00 Docusate Sodium (Colace) 100 mg BID PO Last administered on 11/18/16 09:14; Admin Dose 100 MG; Start 11/16/16 at 09:00 Senna (Senokot) 1 tab HS PO Last administered on 11/17/16 21:31; Admin Dose 1 TAB; Start 11/16/16 at 21:00 Bisacodyl (Dulcolax Supp) 10 mg DAILY PRN [place] CONSTIPATION; Start 11/15/16 at 23 :45 Magnesium Hydroxide (Milk Of Mag) 30 ml BID PRN PO CONSTIPATION; Start at 23:45 Lactulose (Enulose) 20 gm DAILY PRN PO CONSTIPATION; Start 11/15/16 at 23:45 Assessment/Plan Chief Complaint/Hosp Course Assessment and plan. 1. CVA status post TPA -Continue aspirin, Plavix(dual antiplatelet for 3 months followed by Plavix indefinite) and , statin 2. Hypertension -On Norvasc 3.BPH: - On finasteride Continue PT. Problems: KHANG GALINDO MD, [facility] Nov 18, 2016 16:29
[2016-11-18 20:00] VITALS: BP 141/64; RESP 18
[2016-11-18] MEDS: ATORVASTATIN 40 MG TAB PO SCH (20:49)
[2016-11-18] MEDS: SENNA TAB PO SCH (20:50)
[2016-11-19] MEDS: LEVOTHYROXINE 88 MCG TAB PO SCH (06:19)
[2016-11-19] MEDS: PANTOPRAZOLE (EC) 40 MG TAB PO SCH (06:19)
[2016-11-19 07:30] VITALS: BP 153/67; RESP 20
[2016-11-19] MEDS: FINASTERIDE 5 MG TAB PO SCH (09:11)
[2016-11-19] MEDS: NIACIN 500 MG TAB PO SCH (09:11)
[2016-11-19] MEDS: ASPIRIN (EC) 81 MG TAB PO SCH (09:11)
[2016-11-19] MEDS: ALLOPURINOL 100 MG TAB PO SCH ×2 (09:12→20:19)
[2016-11-19] MEDS: AMLODIPINE 5 MG TAB PO SCH (09:12)
[2016-11-19] MEDS: DOCUSATE SODIUM 100 MG CAP PO SCH ×2 (09:12→20:19)
[2016-11-19] MEDS: CLOPIDOGREL 75 MG TAB PO SCH (09:12)
[2016-11-19] MEDS: FISH OIL 1,000 MG CAP PO SCH (09:12)
[2016-11-19 09:16] VITALS: BP 125/57; PULSE 88; RESP 16
[2016-11-19 09:53] VITALS: BP 129/85; PULSE 88; RESP 16
[2016-11-19 09:59] VITALS: BP 115/55; PULSE 92; RESP 16
--- NOTE | 2016-11-19 11:20 | CONS ---
Date/Time of Note Date/Time of Note DATE: 11/19/16 TIME: 11:20 Consult Date/Type/Reason Admit Date/Time Nov 15, 2016 at 22:00 Type of Consultation: IM Subjective Patient with choking episode wit hbreakfast this AM. He thinks it is related to eating honey. Aspiration precautions reviewed with patient and family Objective pulm-cta cga ambulation Vital Signs Date Time Temp Pulse Resp B/P Pulse Ox O2 Delivery O2 Flow Rate FiO2 11/19/16 09:59 92 16 115/55 96 Nasal Cannula 2.0 11/19/16 07:30 97.4 Intake and Output 11/18/16 11/18/16 11/19/16 14:59 22:59 06:59 Intake Total 720 ml 360 ml 450 ml Balance 720 ml 360 ml 450 ml Results/Medications Result Diagram: 11/16/1661811/16/1619 Medications Current Medications Amlodipine Besylate (Norvasc) 5 mg DAILY PO Last administered on 11/19/16 09:12 ; Admin Dose 5 MG; Start 11/16/16 at 09:00 Finasteride (Proscar) 5 mg DAILY PO Last administered on 11/19/16 09:11; Admin Dose 5 MG; Start 11/16/16 at 09:00 Pantoprazole (Protonix Tab) 40 mg DAILY@06 PO Last administered on 11/19/16 06: 19; Admin Dose 40 MG; Start 11/16/16 at 06:00 Niacin (Niacin) 500 mg DAILY PO Last administered on 11/19/16 09:11; Admin Dose 500 MG; Start 11/16/16 at 09:00 Fish Oil (Fish Oil) 1,000 mg DAILY PO Last administered on 11/19/16 09:12; Admin Dose 1,000 MG; Start 11/16/16 at 09:00 Acetaminophen (Tylenol Tab) 650 mg Q4H PRN PO PAIN AND OR ELEVATED TEMP; Start 11/15/16 at 23:45 Allopurinol (Zyloprim) 100 mg BID PO Last administered on 11/19/16 09:12; Admin Dose 100 MG; Start 11/16/16 at 09:00 Aspirin (Halfprin) 81 mg DAILY PO Last administered on 11/19/16 09:11; Admin Dose 81 MG; Start 11/16/16 at 09:00 Atorvastatin Calcium (Lipitor) 40 mg DAILY@21 PO Last administered on 11/18/16 20:49; Admin Dose 40 MG; Start 11/16/16 at 21:00 Clopidogrel Bisulfate (plaVIX) 75 mg DAILY PO Last administered on 11/19/16 09: 12; Admin Dose 75 MG; Start 11/16/16 at 09:00 Docusate Sodium (Colace) 100 mg BID PO Last administered on 11/19/16 09:12; Admin Dose 100 MG; Start 11/16/16 at 09:00 Senna (Senokot) 1 tab HS PO Last administered on 11/17/16 21:31; Admin Dose 1 TAB; Start 11/16/16 at 21:00 Bisacodyl (Dulcolax Supp) 10 mg DAILY PRN [place] CONSTIPATION; Start 11/15/16 at 23 :45 Magnesium Hydroxide (Milk Of Mag) 30 ml BID PRN PO CONSTIPATION; Start at 23:45 Lactulose (Enulose) 20 gm DAILY PRN PO CONSTIPATION; Start 11/15/16 at 23:45 Assessment/Plan Additional Assessment/Plan Rehab- 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 Continue current treatment plan Hemianopsia. Dysphagia- downgraded to puree diet. Videofluoro scheduled Hypertension. BPH. LONNIE SYLVESTER MD Nov 19, 2016 11:20
--- NOTE | 2016-11-19 11:52 | CONS ---
Date/Time of Note Date/Time of Note DATE: 11/19/16 TIME: 11:52 Consult Date/Type/Reason Admit Date/Time Nov 15, 2016 at 22:00 Type of Consultation: IM Subjective Choking episode this morning. Now more comfortable. Currently on room air. Objective Vital Signs Date Time Temp Pulse Resp B/P Pulse Ox O2 Delivery O2 Flow Rate FiO2 11/19/16 09:59 92 16 115/55 96 Nasal Cannula 2.0 11/19/16 07:30 97.4 Intake and Output 11/18/16 11/18/16 11/19/16 14:59 22:59 06:59 Intake Total 720 ml 360 ml 450 ml Balance 720 ml 360 ml 450 ml Exam comfortable mmm PEERL cvs s1s2 rs clear bilaterally abdo soft nt bs ext no cy cl óscar Results/Medications Result Diagram: 11/16/1661811/16/16618 Medications Current Medications Amlodipine Besylate (Norvasc) 5 mg DAILY PO Last administered on 11/19/16 09:12 ; Admin Dose 5 MG; Start 11/16/16 at 09:00 Finasteride (Proscar) 5 mg DAILY PO Last administered on 11/19/16 09:11; Admin Dose 5 MG; Start 11/16/16 at 09:00 Pantoprazole (Protonix Tab) 40 mg DAILY@06 PO Last administered on 11/19/16 06: 19; Admin Dose 40 MG; Start 11/16/16 at 06:00 Niacin (Niacin) 500 mg DAILY PO Last administered on 11/19/16 09:11; Admin Dose 500 MG; Start 11/16/16 at 09:00 Fish Oil (Fish Oil) 1,000 mg DAILY PO Last administered on 11/19/16 09:12; Admin Dose 1,000 MG; Start 11/16/16 at 09:00 Acetaminophen (Tylenol Tab) 650 mg Q4H PRN PO PAIN AND OR ELEVATED TEMP; Start 11/15/16 at 23:45 Allopurinol (Zyloprim) 100 mg BID PO Last administered on 11/19/16 09:12; Admin Dose 100 MG; Start 11/16/16 at 09:00 Aspirin (Halfprin) 81 mg DAILY PO Last administered on 11/19/16 09:11; Admin Dose 81 MG; Start 11/16/16 at 09:00 Atorvastatin Calcium (Lipitor) 40 mg DAILY@21 PO Last administered on 11/18/16 20:49; Admin Dose 40 MG; Start 11/16/16 at 21:00 Clopidogrel Bisulfate (plaVIX) 75 mg DAILY PO Last administered on 11/19/16 09: 12; Admin Dose 75 MG; Start 11/16/16 at 09:00 Docusate Sodium (Colace) 100 mg BID PO Last administered on 11/19/16 09:12; Admin Dose 100 MG; Start 11/16/16 at 09:00 Senna (Senokot) 1 tab HS PO Last administered on 11/17/16 21:31; Admin Dose 1 TAB; Start 11/16/16 at 21:00 Bisacodyl (Dulcolax Supp) 10 mg DAILY PRN [place] CONSTIPATION; Start 11/15/16 at 23 :45 Magnesium Hydroxide (Milk Of Mag) 30 ml BID PRN PO CONSTIPATION; Start at 23:45 Lactulose (Enulose) 20 gm DAILY PRN PO CONSTIPATION; Start 11/15/16 at 23:45 Assessment/Plan Chief Complaint/Hosp Course Assessment and plan. 1. CVA status post TPA -Continue aspirin, Plavix(dual antiplatelet for 3 months followed by Plavix indefinite) and , statin 2. Hypertension -On Norvasc 3.BPH: - On finasteride Speech therapy recommendations exclude aspiration. Problems: KHANG GALINDO MD, [facility] Nov 19, 2016 11:52
[2016-11-19 14:00] VITALS: BP 128/62; RESP 20
[2016-11-19 20:00] VITALS: BP 126/65; RESP 18
[2016-11-19] MEDS: ATORVASTATIN 40 MG TAB PO SCH (20:19)
[2016-11-19] MEDS: SENNA TAB PO SCH (20:19)
[2016-11-20 02:00] VITALS: BP 130/62; RESP 18
[2016-11-20] MEDS: PANTOPRAZOLE (EC) 40 MG TAB PO SCH (06:30)
[2016-11-20] MEDS: LEVOTHYROXINE 88 MCG TAB PO SCH (06:41)
[2016-11-20 07:30] VITALS: BP 143/65; RESP 18
[2016-11-20] MEDS: ALLOPURINOL 100 MG TAB PO SCH ×2 (09:11→22:06)
[2016-11-20] MEDS: DOCUSATE SODIUM 100 MG CAP PO SCH ×2 (09:11→22:07)
[2016-11-20] MEDS: CLOPIDOGREL 75 MG TAB PO SCH (09:11)
[2016-11-20] MEDS: FINASTERIDE 5 MG TAB PO SCH (09:11)
[2016-11-20] MEDS: ASPIRIN (EC) 81 MG TAB PO SCH (09:11)
[2016-11-20] MEDS: FISH OIL 1,000 MG CAP PO SCH (09:11)
[2016-11-20] MEDS: AMLODIPINE 5 MG TAB PO SCH (09:11)
[2016-11-20] MEDS: NIACIN 500 MG TAB PO SCH (09:11)
[2016-11-20 09:16] VITALS: BP 131/6; PULSE 78; RESP 16
--- NOTE | 2016-11-20 13:29 | CONS ---
Date/Time of Note Date/Time of Note DATE: 11/20/16 TIME: 13:28 Consult Date/Type/Reason Admit Date/Time Nov 15, 2016 at 22:00 Type of Consultation: IM Subjective Remains comfortable, no new events. Objective Vital Signs Date Time Temp Pulse Resp B/P Pulse Ox O2 Delivery O2 Flow Rate FiO2 11/20/16 09:16 78 16 131/6 96 Room Air 78 11/20/16 07:30 97.8 11/19/16 09:59 2.0 Intake and Output 11/19/16 11/19/16 11/20/16 14:59 22:59 06:59 Intake Total 560 ml 640 ml 550 ml Balance 560 ml 640 ml 550 ml Exam comfortable mmm PEERL cvs s1s2 rs clear bilaterally abdo soft nt bs ext no cy cl óscar Results/Medications Result Diagram: 11/16/1661811/16/16618 Medications Current Medications Amlodipine Besylate (Norvasc) 5 mg DAILY PO Last administered on 11/20/16 09:11 ; Admin Dose 5 MG; Start 11/16/16 at 09:00 Finasteride (Proscar) 5 mg DAILY PO Last administered on 11/20/16 09:11; Admin Dose 5 MG; Start 11/16/16 at 09:00 Pantoprazole (Protonix Tab) 40 mg DAILY@06 PO Last administered on 11/20/16 06: 30; Admin Dose 40 MG; Start 11/16/16 at 06:00 Niacin (Niacin) 500 mg DAILY PO Last administered on 11/20/16 09:11; Admin Dose 500 MG; Start 11/16/16 at 09:00 Fish Oil (Fish Oil) 1,000 mg DAILY PO Last administered on 11/20/16 09:11; Admin Dose 1,000 MG; Start 11/16/16 at 09:00 Acetaminophen (Tylenol Tab) 650 mg Q4H PRN PO PAIN AND OR ELEVATED TEMP; Start 11/15/16 at 23:45 Allopurinol (Zyloprim) 100 mg BID PO Last administered on 11/20/16 09:11; Admin Dose 100 MG; Start 11/16/16 at 09:00 Aspirin (Halfprin) 81 mg DAILY PO Last administered on 11/20/16 09:11; Admin Dose 81 MG; Start 11/16/16 at 09:00 Atorvastatin Calcium (Lipitor) 40 mg DAILY@21 PO Last administered on 11/19/16 20:19; Admin Dose 40 MG; Start 11/16/16 at 21:00 Clopidogrel Bisulfate (plaVIX) 75 mg DAILY PO Last administered on 11/20/16 09: 11; Admin Dose 75 MG; Start 11/16/16 at 09:00 Docusate Sodium (Colace) 100 mg BID PO Last administered on 11/20/16 09:11; Admin Dose 100 MG; Start 11/16/16 at 09:00 Senna (Senokot) 1 tab HS PO Last administered on 11/19/16 20:19; Admin Dose 1 TAB; Start 11/16/16 at 21:00 Bisacodyl (Dulcolax Supp) 10 mg DAILY PRN [place] CONSTIPATION; Start 11/15/16 at 23 :45 Magnesium Hydroxide (Milk Of Mag) 30 ml BID PRN PO CONSTIPATION; Start at 23:45 Lactulose (Enulose) 20 gm DAILY PRN PO CONSTIPATION; Start 11/15/16 at 23:45 Assessment/Plan Chief Complaint/Hosp Course Assessment and plan. 1. CVA status post TPA -Continue aspirin, Plavix(dual antiplatelet for 3 months followed by Plavix indefinite) and , statin 2. Hypertension -On Norvasc 3.BPH: - On finasteride Speech therapy recommendations exclude aspiration. Problems: KHANG GALINDO MD, [facility] Nov 20, 2016 13:29
[2016-11-20 20:00] VITALS: BP 153/69; RESP 20
[2016-11-20 22:00] VITALS: BP 116/58; PULSE 72; RESP 18
[2016-11-20] MEDS: ATORVASTATIN 40 MG TAB PO SCH (22:06)
[2016-11-20] MEDS: SENNA TAB PO SCH (22:07)
[2016-11-21 02:23] VITALS: BP 137/64; RESP 18
[2016-11-21] MEDS: PANTOPRAZOLE (EC) 40 MG TAB PO SCH (06:39)
[2016-11-21] MEDS: LEVOTHYROXINE 88 MCG TAB PO SCH (06:39)
[2016-11-21 07:30] VITALS: BP 152/67; RESP 20
[2016-11-21] MEDS: NIACIN 500 MG TAB PO SCH (09:11)
[2016-11-21] MEDS: DOCUSATE SODIUM 100 MG CAP PO SCH ×2 (09:11→20:55)
[2016-11-21] MEDS: FISH OIL 1,000 MG CAP PO SCH (09:11)
[2016-11-21] MEDS: ASPIRIN (EC) 81 MG TAB PO SCH (09:11)
[2016-11-21] MEDS: ALLOPURINOL 100 MG TAB PO SCH ×2 (09:11→20:55)
[2016-11-21] MEDS: FINASTERIDE 5 MG TAB PO SCH (09:12)
[2016-11-21] MEDS: AMLODIPINE 5 MG TAB PO SCH (09:12)
[2016-11-21] MEDS: CLOPIDOGREL 75 MG TAB PO SCH (09:12)
--- NOTE | 2016-11-21 09:19 | CONS ---
Date/Time of Note Date/Time of Note DATE: 11/21/16 TIME: 09:18 Consult Date/Type/Reason Admit Date/Time Nov 15, 2016 at 22:00 Type of Consultation: IM Objective Vital Signs Date Time Temp Pulse Resp B/P Pulse Ox O2 Delivery O2 Flow Rate FiO2 11/21/16 02:23 97.7 54 18 137/64 98 11/20/16 09:16 Room Air 11/19/16 09:59 2.0 Intake and Output 11/20/16 11/20/16 11/21/16 15:00 23:00 07:00 Intake Total 1190 ml 180 ml Output Total 550 ml Balance 640 ml 180 ml INTERDISCIPLINARY TEAM CONFERENCE BOWEL- Cont BLADDER-Cont SKIN- intact OT- DRESSING-cga BATHING-sba TOILETING-cga PT- BED MOBILITY-cga TRANSFERS-cga AMBULATION-cga 150 feet W.C. MOBILITY SPEECH- COGNITION-min DYPHAGIA-on puree diet A/P- Interdisciplinary team conference held today. Please see interdisciplinary sheet. Working toward d.c. on 11/29 with post discharge follow up of physical therapy, occupational therapy. Results/Medications Medications Current Medications Amlodipine Besylate (Norvasc) 5 mg DAILY PO Last administered on 11/21/16 09:12 ; Admin Dose 5 MG; Start 11/16/16 at 09:00 Finasteride (Proscar) 5 mg DAILY PO Last administered on 11/21/16 09:12; Admin Dose 5 MG; Start 11/16/16 at 09:00 Pantoprazole (Protonix Tab) 40 mg DAILY@06 PO Last administered on 11/21/16 06: 39; Admin Dose 40 MG; Start 11/16/16 at 06:00 Niacin (Niacin) 500 mg DAILY PO Last administered on 11/21/16 09:11; Admin Dose 500 MG; Start 11/16/16 at 09:00 Fish Oil (Fish Oil) 1,000 mg DAILY PO Last administered on 11/21/16 09:11; Admin Dose 1,000 MG; Start 11/16/16 at 09:00 Acetaminophen (Tylenol Tab) 650 mg Q4H PRN PO PAIN AND OR ELEVATED TEMP; Start 11/15/16 at 23:45 Allopurinol (Zyloprim) 100 mg BID PO Last administered on 11/21/16 09:11; Admin Dose 100 MG; Start 11/16/16 at 09:00 Aspirin (Halfprin) 81 mg DAILY PO Last administered on 11/21/16 09:11; Admin Dose 81 MG; Start 11/16/16 at 09:00 Atorvastatin Calcium (Lipitor) 40 mg DAILY@21 PO Last administered on 11/20/16 22:06; Admin Dose 40 MG; Start 11/16/16 at 21:00 Clopidogrel Bisulfate (plaVIX) 75 mg DAILY PO Last administered on 11/21/16 09: 12; Admin Dose 75 MG; Start 11/16/16 at 09:00 Docusate Sodium (Colace) 100 mg BID PO Last administered on 11/21/16 09:11; Admin Dose 100 MG; Start 11/16/16 at 09:00 Senna (Senokot) 1 tab HS PO Last administered on 11/20/16 22:07; Admin Dose 1 TAB; Start 11/16/16 at 21:00 Bisacodyl (Dulcolax Supp) 10 mg DAILY PRN [place] CONSTIPATION; Start 11/15/16 at 23 :45 Magnesium Hydroxide (Milk Of Mag) 30 ml BID PRN PO CONSTIPATION; Start at 23:45 Lactulose (Enulose) 20 gm DAILY PRN PO CONSTIPATION; Start 11/15/16 at 23:45 LONNIE SYLVESTER MD Nov 21, 2016 09:19
--- NOTE | 2016-11-21 11:43 | CONS ---
Date/Time of Note Date/Time of Note DATE: 11/21/16 TIME: 11:42 Consult Date/Type/Reason Admit Date/Time Nov 15, 2016 at 22:00 Type of Consultation: IM Subjective comfortable Objective Vital Signs Date Time Temp Pulse Resp B/P Pulse Ox O2 Delivery O2 Flow Rate FiO2 11/21/16 07:30 97.7 77 20 152/67 96 11/20/16 09:16 Room Air 11/19/16 09:59 2.0 Intake and Output 11/20/16 11/20/16 11/21/16 14:59 22:59 06:59 Intake Total 1190 ml 180 ml Output Total 550 ml Balance 640 ml 180 ml Exam comfortable mmm PEERL cvs s1s2 rs clear bilaterally abdo soft nt bs ext no cy cl óscar Results/Medications Medications Current Medications Amlodipine Besylate (Norvasc) 5 mg DAILY PO Last administered on 11/21/16 09:12 ; Admin Dose 5 MG; Start 11/16/16 at 09:00 Finasteride (Proscar) 5 mg DAILY PO Last administered on 11/21/16 09:12; Admin Dose 5 MG; Start 11/16/16 at 09:00 Pantoprazole (Protonix Tab) 40 mg DAILY@06 PO Last administered on 11/21/16 06: 39; Admin Dose 40 MG; Start 11/16/16 at 06:00 Niacin (Niacin) 500 mg DAILY PO Last administered on 11/21/16 09:11; Admin Dose 500 MG; Start 11/16/16 at 09:00 Fish Oil (Fish Oil) 1,000 mg DAILY PO Last administered on 11/21/16 09:11; Admin Dose 1,000 MG; Start 11/16/16 at 09:00 Acetaminophen (Tylenol Tab) 650 mg Q4H PRN PO PAIN AND OR ELEVATED TEMP; Start 11/15/16 at 23:45 Allopurinol (Zyloprim) 100 mg BID PO Last administered on 11/21/16 09:11; Admin Dose 100 MG; Start 11/16/16 at 09:00 Aspirin (Halfprin) 81 mg DAILY PO Last administered on 11/21/16 09:11; Admin Dose 81 MG; Start 11/16/16 at 09:00 Atorvastatin Calcium (Lipitor) 40 mg DAILY@21 PO Last administered on 11/20/16 22:06; Admin Dose 40 MG; Start 11/16/16 at 21:00 Clopidogrel Bisulfate (plaVIX) 75 mg DAILY PO Last administered on 11/21/16 09: 12; Admin Dose 75 MG; Start 11/16/16 at 09:00 Docusate Sodium (Colace) 100 mg BID PO Last administered on 11/21/16 09:11; Admin Dose 100 MG; Start 11/16/16 at 09:00 Senna (Senokot) 1 tab HS PO Last administered on 11/20/16 22:07; Admin Dose 1 TAB; Start 11/16/16 at 21:00 Bisacodyl (Dulcolax Supp) 10 mg DAILY PRN [place] CONSTIPATION; Start 11/15/16 at 23 :45 Magnesium Hydroxide (Milk Of Mag) 30 ml BID PRN PO CONSTIPATION; Start at 23:45 Lactulose (Enulose) 20 gm DAILY PRN PO CONSTIPATION; Start 11/15/16 at 23:45 Assessment/Plan Chief Complaint/Hosp Course Assessment and plan. 1. CVA status post TPA -Continue aspirin, Plavix(dual antiplatelet for 3 months followed by Plavix indefinite) and statin 2. Hypertension -On Norvasc 3.BPH: - On finasteride ST recs repeat labs Problems: KHANG [facility]INDO [facility], [facility] Nov 21, 2016 11:43
[2016-11-21] MEDS ORDERED: BARIUM SULFATE 135 ML (E-Z HD) PO ONE (12:50)
[2016-11-21 14:00] VITALS: BP 132/65; RESP 20
--- NOTE | 2016-11-21 14:43 | RADRPT ---
PROCEDURE: Video swallowing study CLINICAL INDICATION: Dysphagia TECHNIQUE: Modified barium swallowing study was performed with the speech pathologist. Fluoroscop y was utilized for the procedure. Imaging was confined to the oral pharyngeal and cervical phases o f the swallowing mechanism. Fluoroscopic guidance was utilized during a modified barium swallowing study with multiple swallows of thin and thick liquids. Number of series: 40. Fluoro time: 4.3 m inutes. Estimated cumulative dose: 8.34 mGy. COMPARISON: None available FINDINGS: Trace aspiration was seen with nectar via straw. aspiration was seen. 4.3 minutes of fluoroscopy debbie e was utilized during the procedure. Mild to moderate degenerative changes are present in the lower cervical spine. No large bulky anterior osteophytes are seen in the cervical spine. IMPRESSION: 1. Trace aspiration as above. 2. Please refer to swallowing therapist's recommendations for future feedings. RPTAT: QQ .Porfirio Carmona MD, MD Date Time Electronically viewed and signed by .Porfirio Carmona MD, on 11/21/2016 14:42 .A/
[2016-11-21 19:55] VITALS: BP 131/60; RESP 18
[2016-11-21] MEDS: SENNA TAB PO SCH (20:55)
[2016-11-21] MEDS: ATORVASTATIN 40 MG TAB PO SCH (20:55)
[2016-11-22 02:56] VITALS: BP 165/67; RESP 20
[2016-11-22] MEDS: PANTOPRAZOLE (EC) 40 MG TAB PO SCH (06:12)
[2016-11-22] MEDS: LEVOTHYROXINE 88 MCG TAB PO SCH (06:12)
[2016-11-22 06:38] LABS: BASOPHILS % 0.3 % (0.0-2.0); EOSINOPHILS # 0.2 10^3/ul (0.0-0.5); EOSINOPHILS % 3.6 % (0.0-7.0); HEMATOCRIT 39.1 % (42.0-52.0); HEMOGLOBIN 13.4 g/dl (14.0-18.0); LYMPHOCYTES % 29.4 % (15.0-51.0); MEAN CORPUSCULAR HGB CONC 34.3 g/dl (32.0-37.0); MEAN CORPUSCULAR VOLUME 90.5 fl (82.0-101.0); MEAN PLATELET VOLUME 11.8 fl (7.4-10.4); MONOCYTE # 0.5 10^3/ul (0.3-0.9); MONOCYTES % 6.9 % (0.0-11.0); NEUTROPHILS % 59.5 % (39.0-77.0); PLATELET COUNT 144 10^3/UL (140-415); RED BLOOD COUNT 4.32 10^6/ul (4.70-6.10); RED CELL DISTRIBUTION WIDTH 13.1 % (11.5-14.5); WHITE BLOOD COUNT 6.7 10^3/ul (4.8-10.8)
[2016-11-22 07:11] LABS: CALCIUM 8.7 mg/dl (8.4-10.2); CREATININE 0.56 mg/dl (0.61-1.24); MAGNESIUM 1.9 mg/dl (1.7-2.5); PHOSPHORUS 3.6 mg/dl (2.5-4.9); POTASSIUM 3.2 mmol/L (3.5-5.1)
[2016-11-22 08:00] VITALS: BP 155/68; RESP 18
[2016-11-22] MEDS ORDERED: POTASSIUM CHLORIDE (SR) 20 MEQ TAB PO STA (08:05)
--- NOTE | 2016-11-22 08:18 | CONS ---
Date/Time of Note Date/Time of Note DATE: 11/22/16 TIME: 08:16 Consult Date/Type/Reason Admit Date/Time Nov 15, 2016 at 22:00 Type of Consultation: CARDIOLOGY Subjective Discussed with staff and nephew. pt is in rehab now he denies any chest pain or pressure no palpitation to me. He still has weakness and poor coordination of mostly his right arm. OBJECTIVE: General: no acute distress HEENT: NC/AT. pupils are equal. round. NECK: NO JVD. no stridor. CV: RRR. systolic murmur; no gallop or rubs. PULM: no wheezing or rhonchi. GI: SOFT, NT, ND, no rebound or guarding Extremity: trace B/L LE edema. no clubbing. neuro: awake and alert, OX3. + right arm weakness Psych: calm and pleasant Objective Vital Signs Date Time Temp Pulse Resp B/P Pulse Ox O2 Delivery O2 Flow Rate FiO2 11/22/16 02:56 98.4 70 20 165/67 94 11/20/16 09:16 Room Air 11/19/16 09:59 2.0 Intake and Output 11/21/16 11/21/16 11/22/16 15:00 23:00 07:00 Intake Total 560 ml 150 ml Balance 560 ml 150 ml Results/Medications Result Diagram: 11/22/16 0546 11/22/16 0546 Results 24 hrs Laboratory Tests Test 11/22/16 05:46 White Blood Count 6.7 Red Blood Count 4.32 L Hemoglobin 13.4 L Hematocrit 39.1 L Mean Corpuscular Volume 90.5 Mean Corpuscular Hemoglobin 31.0 Mean Corpuscular Hemoglobin Concent 34.3 Red Cell Distribution Width 13.1 Platelet Count 144 Mean Platelet Volume 11.8 H Neutrophils % 59.5 Lymphocytes % 29.4 Monocytes % 6.9 Eosinophils % 3.6 Basophils % 0.3 Nucleated Red Blood Cells % 0.0 Neutrophils # (Manual) 4.0 Lymphocytes # 2.0 Monocytes # 0.5 Eosinophils # 0.2 Basophils # 0.0 Nucleated Red Blood Cells # 0.0 Sodium Level 139 Potassium Level 3.2 L Chloride Level 103 Carbon Dioxide Level 27 Anion Gap 12 Blood Urea Nitrogen 10 Creatinine 0.56 L Glucose Level 98 Calcium Level 8.7 Phosphorus Level 3.6 Magnesium Level 1.9 Medications Current Medications Amlodipine Besylate (Norvasc) 5 mg DAILY PO Last administered on 11/21/16 09:12 ; Admin Dose 5 MG; Start 11/16/16 at 09:00 Finasteride (Proscar) 5 mg DAILY PO Last administered on 11/21/16 09:12; Admin Dose 5 MG; Start 11/16/16 at 09:00 Pantoprazole (Protonix Tab) 40 mg DAILY@06 PO Last administered on 11/22/16 06: 12; Admin Dose 40 MG; Start 11/16/16 at 06:00 Niacin (Niacin) 500 mg DAILY PO Last administered on 11/21/16 09:11; Admin Dose 500 MG; Start 11/16/16 at 09:00 Fish Oil (Fish Oil) 1,000 mg DAILY PO Last administered on 11/21/16 09:11; Admin Dose 1,000 MG; Start 11/16/16 at 09:00 Acetaminophen (Tylenol Tab) 650 mg Q4H PRN PO PAIN AND OR ELEVATED TEMP; Start 11/15/16 at 23:45 Allopurinol (Zyloprim) 100 mg BID PO Last administered on 11/21/16 20:55; Admin Dose 100 MG; Start 11/16/16 at 09:00 Aspirin (Halfprin) 81 mg DAILY PO Last administered on 11/21/16 09:11; Admin Dose 81 MG; Start 11/16/16 at 09:00 Atorvastatin Calcium (Lipitor) 40 mg DAILY@21 PO Last administered on 11/21/16 20:55; Admin Dose 40 MG; Start 11/16/16 at 21:00 Clopidogrel Bisulfate (plaVIX) 75 mg DAILY PO Last administered on 11/21/16 09: 12; Admin Dose 75 MG; Start 11/16/16 at 09:00 Docusate Sodium (Colace) 100 mg BID PO Last administered on 11/21/16 20:55; Admin Dose 100 MG; Start 11/16/16 at 09:00 Senna (Senokot) 1 tab HS PO Last administered on 11/21/16 20:55; Admin Dose 1 TAB; Start 11/16/16 at 21:00 Bisacodyl (Dulcolax Supp) 10 mg DAILY PRN [place] CONSTIPATION; Start 11/15/16 at 23 :45 Magnesium Hydroxide (Milk Of Mag) 30 ml BID PRN PO CONSTIPATION; Start at 23:45 Lactulose (Enulose) 20 gm DAILY PRN PO CONSTIPATION; Start 11/15/16 at 23:45 Losartan Potassium (Cozaar) 50 mg DAILY PO ; Start 11/22/16 at 09:00 Assessment/Plan Chief Complaint/Hosp Course 1. CVA: S/P t-PA 2. HTN: stable now 3. severe PAD 4. hypo K Cont PT f/u with neurology rec. ASA plavix I will replace K today add losartan for better BP control now. Giacomo Salazar MD [facility] Problems: GIACOMO SALAZAR MD Nov 22, 2016 08:18
[2016-11-22] MEDS: FINASTERIDE 5 MG TAB PO SCH (09:31)
[2016-11-22] MEDS: FISH OIL 1,000 MG CAP PO SCH (09:31)
[2016-11-22] MEDS: ALLOPURINOL 100 MG TAB PO SCH ×2 (09:32→20:52)
[2016-11-22] MEDS: CLOPIDOGREL 75 MG TAB PO SCH (09:32)
[2016-11-22] MEDS: LOSARTAN 50 MG TAB PO SCH (09:32)
[2016-11-22] MEDS: AMLODIPINE 5 MG TAB PO SCH (09:32)
[2016-11-22] MEDS: NIACIN 500 MG TAB PO SCH (09:32)
[2016-11-22] MEDS: ASPIRIN (EC) 81 MG TAB PO SCH (09:33)
[2016-11-22] MEDS: DOCUSATE SODIUM 100 MG CAP PO SCH ×2 (09:33→20:52)
--- NOTE | 2016-11-22 12:40 | CONS ---
Date/Time of Note Date/Time of Note DATE: 11/22/16 TIME: 12:40 Consult Date/Type/Reason Admit Date/Time Nov 15, 2016 at 22:00 Type of Consultation: CARDIOLOGY Subjective Motivated Objective pulm-cta min assist Vital Signs Date Time Temp Pulse Resp B/P Pulse Ox O2 Delivery O2 Flow Rate FiO2 11/22/16 08:00 97.9 70 18 155/68 97 11/20/16 09:16 Room Air 11/19/16 09:59 2.0 Intake and Output 11/21/16 11/21/16 11/22/16 14:59 22:59 06:59 Intake Total 560 ml 150 ml Balance 560 ml 150 ml Results/Medications Result Diagram: 11/22/16 0546 11/22/16 0546 Results 24 hrs Laboratory Tests Test 11/22/16 05:46 White Blood Count 6.7 Red Blood Count 4.32 L Hemoglobin 13.4 L Hematocrit 39.1 L Mean Corpuscular Volume 90.5 Mean Corpuscular Hemoglobin 31.0 Mean Corpuscular Hemoglobin Concent 34.3 Red Cell Distribution Width 13.1 Platelet Count 144 Mean Platelet Volume 11.8 H Neutrophils % 59.5 Lymphocytes % 29.4 Monocytes % 6.9 Eosinophils % 3.6 Basophils % 0.3 Nucleated Red Blood Cells % 0.0 Neutrophils # (Manual) 4.0 Lymphocytes # 2.0 Monocytes # 0.5 Eosinophils # 0.2 Basophils # 0.0 Nucleated Red Blood Cells # 0.0 Sodium Level 139 Potassium Level 3.2 L Chloride Level 103 Carbon Dioxide Level 27 Anion Gap 12 Blood Urea Nitrogen 10 Creatinine 0.56 L Glucose Level 98 Calcium Level 8.7 Phosphorus Level 3.6 Magnesium Level 1.9 Medications Current Medications Amlodipine Besylate (Norvasc) 5 mg DAILY PO Last administered on 11/22/16 09:32 ; Admin Dose 5 MG; Start 11/16/16 at 09:00 Finasteride (Proscar) 5 mg DAILY PO Last administered on 11/22/16 09:31; Admin Dose 5 MG; Start 11/16/16 at 09:00 Pantoprazole (Protonix Tab) 40 mg DAILY@06 PO Last administered on 11/22/16 06: 12; Admin Dose 40 MG; Start 11/16/16 at 06:00 Niacin (Niacin) 500 mg DAILY PO Last administered on 11/22/16 09:32; Admin Dose 500 MG; Start 11/16/16 at 09:00 Fish Oil (Fish Oil) 1,000 mg DAILY PO Last administered on 11/22/16 09:31; Admin Dose 1,000 MG; Start 11/16/16 at 09:00 Acetaminophen (Tylenol Tab) 650 mg Q4H PRN PO PAIN AND OR ELEVATED TEMP; Start 11/15/16 at 23:45 Allopurinol (Zyloprim) 100 mg BID PO Last administered on 11/22/16 09:32; Admin Dose 100 MG; Start 11/16/16 at 09:00 Aspirin (Halfprin) 81 mg DAILY PO Last administered on 11/22/16 09:33; Admin Dose 81 MG; Start 11/16/16 at 09:00 Atorvastatin Calcium (Lipitor) 40 mg DAILY@21 PO Last administered on 11/21/16 20:55; Admin Dose 40 MG; Start 11/16/16 at 21:00 Clopidogrel Bisulfate (plaVIX) 75 mg DAILY PO Last administered on 11/22/16 09: 32; Admin Dose 75 MG; Start 11/16/16 at 09:00 Docusate Sodium (Colace) 100 mg BID PO Last administered on 11/22/16 09:33; Admin Dose 100 MG; Start 11/16/16 at 09:00 Senna (Senokot) 1 tab HS PO Last administered on 11/21/16 20:55; Admin Dose 1 TAB; Start 11/16/16 at 21:00 Bisacodyl (Dulcolax Supp) 10 mg DAILY PRN [place] CONSTIPATION; Start 11/15/16 at 23 :45 Magnesium Hydroxide (Milk Of Mag) 30 ml BID PRN PO CONSTIPATION; Start at 23:45 Lactulose (Enulose) 20 gm DAILY PRN PO CONSTIPATION; Start 11/15/16 at 23:45 Losartan Potassium (Cozaar) 50 mg DAILY PO Last administered on 11/22/16 09:32 ; Admin Dose 50 MG; Start 11/22/16 at 09:00 Assessment/Plan Additional Assessment/Plan Rehab- 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 Continue current rehab plan Hemianopsia. Dysphagia- dysphagia diet Hypertension. BPH. LONNIE SYLEVSTER MD Nov 22, 2016 12:40
--- NOTE | 2016-11-22 15:51 | CONS ---
Date/Time of Note Date/Time of Note DATE: 11/22/16 TIME: 15:50 Consult Date/Type/Reason Admit Date/Time Nov 15, 2016 at 22:00 Type of Consultation: Pulm Subjective Comfortable. Objective Vital Signs Date Time Temp Pulse Resp B/P Pulse Ox O2 Delivery O2 Flow Rate FiO2 11/22/16 08:00 97.9 70 18 155/68 97 11/20/16 09:16 Room Air 11/19/16 09:59 2.0 Intake and Output 11/21/16 11/21/16 11/22/16 15:00 23:00 07:00 Intake Total 560 ml 150 ml Balance 560 ml 150 ml Exam comfortable mmm PEERL cvs s1s2 rs clear bilaterally abdo soft nt bs ext no cy cl óscar Results/Medications Result Diagram: 11/22/16 0546 11/22/16 0546 Results 24 hrs Laboratory Tests Test 11/22/16 05:46 White Blood Count 6.7 Red Blood Count 4.32 L Hemoglobin 13.4 L Hematocrit 39.1 L Mean Corpuscular Volume 90.5 Mean Corpuscular Hemoglobin 31.0 Mean Corpuscular Hemoglobin Concent 34.3 Red Cell Distribution Width 13.1 Platelet Count 144 Mean Platelet Volume 11.8 H Neutrophils % 59.5 Lymphocytes % 29.4 Monocytes % 6.9 Eosinophils % 3.6 Basophils % 0.3 Nucleated Red Blood Cells % 0.0 Neutrophils # (Manual) 4.0 Lymphocytes # 2.0 Monocytes # 0.5 Eosinophils # 0.2 Basophils # 0.0 Nucleated Red Blood Cells # 0.0 Sodium Level 139 Potassium Level 3.2 L Chloride Level 103 Carbon Dioxide Level 27 Anion Gap 12 Blood Urea Nitrogen 10 Creatinine 0.56 L Glucose Level 98 Calcium Level 8.7 Phosphorus Level 3.6 Magnesium Level 1.9 Medications Current Medications Amlodipine Besylate (Norvasc) 5 mg DAILY PO Last administered on 11/22/16 09:32 ; Admin Dose 5 MG; Start 11/16/16 at 09:00 Finasteride (Proscar) 5 mg DAILY PO Last administered on 11/22/16 09:31; Admin Dose 5 MG; Start 11/16/16 at 09:00 Pantoprazole (Protonix Tab) 40 mg DAILY@06 PO Last administered on 11/22/16 06: 12; Admin Dose 40 MG; Start 11/16/16 at 06:00 Niacin (Niacin) 500 mg DAILY PO Last administered on 11/22/16 09:32; Admin Dose 500 MG; Start 11/16/16 at 09:00 Fish Oil (Fish Oil) 1,000 mg DAILY PO Last administered on 11/22/16 09:31; Admin Dose 1,000 MG; Start 11/16/16 at 09:00 Acetaminophen (Tylenol Tab) 650 mg Q4H PRN PO PAIN AND OR ELEVATED TEMP; Start 11/15/16 at 23:45 Allopurinol (Zyloprim) 100 mg BID PO Last administered on 11/22/16 09:32; Admin Dose 100 MG; Start 11/16/16 at 09:00 Aspirin (Halfprin) 81 mg DAILY PO Last administered on 11/22/16 09:33; Admin Dose 81 MG; Start 11/16/16 at 09:00 Atorvastatin Calcium (Lipitor) 40 mg DAILY@21 PO Last administered on 11/21/16 20:55; Admin Dose 40 MG; Start 11/16/16 at 21:00 Clopidogrel Bisulfate (plaVIX) 75 mg DAILY PO Last administered on 11/22/16 09: 32; Admin Dose 75 MG; Start 11/16/16 at 09:00 Docusate Sodium (Colace) 100 mg BID PO Last administered on 11/22/16 09:33; Admin Dose 100 MG; Start 11/16/16 at 09:00 Senna (Senokot) 1 tab HS PO Last administered on 11/21/16 20:55; Admin Dose 1 TAB; Start 11/16/16 at 21:00 Bisacodyl (Dulcolax Supp) 10 mg DAILY PRN [place] CONSTIPATION; Start 11/15/16 at 23 :45 Magnesium Hydroxide (Milk Of Mag) 30 ml BID PRN PO CONSTIPATION; Start at 23:45 Lactulose (Enulose) 20 gm DAILY PRN PO CONSTIPATION; Start 11/15/16 at 23:45 Losartan Potassium (Cozaar) 50 mg DAILY PO Last administered on 11/22/16 09:32 ; Admin Dose 50 MG; Start 11/22/16 at 09:00 Assessment/Plan Chief Complaint/Hosp Course Assessment and plan. 1. CVA status post TPA -Continue aspirin, Plavix(dual antiplatelet for 3 months followed by Plavix indefinite) and statin 2. Hypertension -On Norvasc 3.BPH: - On finasteride ST recs repeat labs stable, replace K+ Problems: KHANG GALINDO MD, [facility] Nov 22, 2016 15:51
[2016-11-22 20:00] VITALS: BP 108/59; RESP 18
[2016-11-22] MEDS: SENNA TAB PO SCH (20:52)
[2016-11-22] MEDS: ATORVASTATIN 40 MG TAB PO SCH (20:52)
[2016-11-23 02:00] VITALS: BP 131/62; RESP 18
[2016-11-23] MEDS: PANTOPRAZOLE (EC) 40 MG TAB PO SCH (06:23)
[2016-11-23] MEDS: LEVOTHYROXINE 88 MCG TAB PO SCH (06:26)
[2016-11-23 07:21] LABS: ALBUMIN 3.7 g/dl (3.3-4.9); ALBUMIN/GLOBULIN RATIO 1.15; BILIRUBIN,INDIRECT 0.8 mg/dl (0-1.1); BILIRUBIN,TOTAL 0.8 mg/dl (0.2-1.3); CREATININE 0.6 mg/dl (0.61-1.24); POTASSIUM 3.3 mmol/L (3.5-5.1); TOTAL PROTEIN 6.9 g/dl (6.1-8.1)
[2016-11-23 08:00] VITALS: BP 154/68; RESP 18
[2016-11-23] MEDS ORDERED: POTASSIUM CHLORIDE (SR) 20 MEQ TAB PO STA (08:55)
--- NOTE | 2016-11-23 08:56 | CONS ---
Date/Time of Note Date/Time of Note DATE: 11/23/16 TIME: 08:55 Consult Date/Type/Reason Admit Date/Time Nov 15, 2016 at 22:00 Type of Consultation: CARDIOLOGY Subjective CARDIOLOGY FOLLOW UP NOTE: Discussed with staff and nephew. pt is in rehab now he denies any chest pain or pressure no palpitation to me. He still has weakness and poor coordination of mostly his right arm. but is able to cooperate with PT. OBJECTIVE: General: no acute distress HEENT: NC/AT. pupils are equal. round. NECK: NO JVD. no stridor. CV: RRR. systolic murmur; no gallop or rubs. PULM: no wheezing or rhonchi. GI: SOFT, NT, ND, no rebound or guarding Extremity: trace B/L LE edema. no clubbing. neuro: awake and alert, OX3. + right arm weakness Psych: calm and pleasant Objective Vital Signs Date Time Temp Pulse Resp B/P Pulse Ox O2 Delivery O2 Flow Rate FiO2 11/23/16 02:00 98.0 67 18 131/62 97 11/20/16 09:16 Room Air 11/19/16 09:59 2.0 Intake and Output 11/22/16 11/22/16 11/23/16 14:59 22:59 06:59 Intake Total 800 ml 400 ml 100 ml Balance 800 ml 400 ml 100 ml Results/Medications Result Diagram: 11/22/16 0546 11/23/16 0630 Results 24 hrs Laboratory Tests Test 11/23/16 06:30 Sodium Level 139 Potassium Level 3.3 L Chloride Level 105 Carbon Dioxide Level 25 Anion Gap 12 Blood Urea Nitrogen 12 Creatinine 0.60 L Glucose Level 97 Calcium Level 9.0 Magnesium Level 2.0 Total Bilirubin 0.8 Direct Bilirubin 0.00 Indirect Bilirubin 0.8 Aspartate Amino Transf (AST/SGOT) 33 Alanine Aminotransferase (ALT/SGPT) 44 Alkaline Phosphatase 109 Total Protein 6.9 Albumin 3.7 Globulin 3.20 Albumin/Globulin Ratio 1.15 Medications Current Medications Amlodipine Besylate (Norvasc) 5 mg DAILY PO Last administered on 11/22/16 09:32 ; Admin Dose 5 MG; Start 11/16/16 at 09:00 Finasteride (Proscar) 5 mg DAILY PO Last administered on 11/22/16 09:31; Admin Dose 5 MG; Start 11/16/16 at 09:00 Pantoprazole (Protonix Tab) 40 mg DAILY@06 PO Last administered on 11/23/16 06: 23; Admin Dose 40 MG; Start 11/16/16 at 06:00 Niacin (Niacin) 500 mg DAILY PO Last administered on 11/22/16 09:32; Admin Dose 500 MG; Start 11/16/16 at 09:00 Fish Oil (Fish Oil) 1,000 mg DAILY PO Last administered on 11/22/16 09:31; Admin Dose 1,000 MG; Start 11/16/16 at 09:00 Acetaminophen (Tylenol Tab) 650 mg Q4H PRN PO PAIN AND OR ELEVATED TEMP; Start 11/15/16 at 23:45 Allopurinol (Zyloprim) 100 mg BID PO Last administered on 11/22/16 20:52; Admin Dose 100 MG; Start 11/16/16 at 09:00 Aspirin (Halfprin) 81 mg DAILY PO Last administered on 11/22/16 09:33; Admin Dose 81 MG; Start 11/16/16 at 09:00 Atorvastatin Calcium (Lipitor) 40 mg DAILY@21 PO Last administered on 11/22/16 20:52; Admin Dose 40 MG; Start 11/16/16 at 21:00 Clopidogrel Bisulfate (plaVIX) 75 mg DAILY PO Last administered on 11/22/16 09: 32; Admin Dose 75 MG; Start 11/16/16 at 09:00 Docusate Sodium (Colace) 100 mg BID PO Last administered on 11/22/16 20:52; Admin Dose 100 MG; Start 11/16/16 at 09:00 Senna (Senokot) 1 tab HS PO Last administered on 11/22/16 20:52; Admin Dose 1 TAB; Start 11/16/16 at 21:00 Bisacodyl (Dulcolax Supp) 10 mg DAILY PRN [place] CONSTIPATION; Start 11/15/16 at 23 :45 Magnesium Hydroxide (Milk Of Mag) 30 ml BID PRN PO CONSTIPATION; Start at 23:45 Lactulose (Enulose) 20 gm DAILY PRN PO CONSTIPATION; Start 11/15/16 at 23:45 Losartan Potassium (Cozaar) 50 mg DAILY PO Last administered on 11/22/16 09:32 ; Admin Dose 50 MG; Start 11/22/16 at 09:00 Assessment/Plan Chief Complaint/Hosp Course 1. CVA: S/P t-PA 2. HTN: stable now 3. severe PAD 4. hypo K Cont PT f/u with neurology rec. ASA plavix I will replace K today CONT losartan for better BP control now. Giacomo Salazar MD FAC Problems: GIACOMO SALAZAR MD Nov 23, 2016 08:56
[2016-11-23] MEDS: FINASTERIDE 5 MG TAB PO SCH (09:09)
[2016-11-23] MEDS: CLOPIDOGREL 75 MG TAB PO SCH (09:09)
[2016-11-23] MEDS: FISH OIL 1,000 MG CAP PO SCH (09:09)
[2016-11-23] MEDS: NIACIN 500 MG TAB PO SCH (09:09)
[2016-11-23] MEDS: ALLOPURINOL 100 MG TAB PO SCH ×2 (09:09→20:55)
[2016-11-23] MEDS: ASPIRIN (EC) 81 MG TAB PO SCH (09:10)
[2016-11-23] MEDS: DOCUSATE SODIUM 100 MG CAP PO SCH ×2 (09:10→20:55)
[2016-11-23] MEDS: LOSARTAN 50 MG TAB PO SCH (09:10)
[2016-11-23] MEDS: AMLODIPINE 5 MG TAB PO SCH (09:10)
--- NOTE | 2016-11-23 11:07 | CONS ---
Date/Time of Note Date/Time of Note DATE: 11/23/16 TIME: 11:06 Consult Date/Type/Reason Admit Date/Time Nov 15, 2016 at 22:00 Type of Consultation: CARDIOLOGY Subjective Current status reviewed with family. They are very supportive, and arranging for supervision upon discharge Objective pulm-cta sba ambulation Vital Signs Date Time Temp Pulse Resp B/P Pulse Ox O2 Delivery O2 Flow Rate FiO2 11/23/16 08:00 98.1 77 18 154/68 96 11/20/16 09:16 Room Air 11/19/16 09:59 2.0 Intake and Output 11/22/16 11/22/16 11/23/16 15:00 23:00 07:00 Intake Total 800 ml 400 ml 100 ml Balance 800 ml 400 ml 100 ml Results/Medications Result Diagram: 11/22/16 0546 11/23/16 0630 Results 24 hrs Laboratory Tests Test 11/23/16 06:30 Sodium Level 139 Potassium Level 3.3 L Chloride Level 105 Carbon Dioxide Level 25 Anion Gap 12 Blood Urea Nitrogen 12 Creatinine 0.60 L Glucose Level 97 Calcium Level 9.0 Magnesium Level 2.0 Total Bilirubin 0.8 Direct Bilirubin 0.00 Indirect Bilirubin 0.8 Aspartate Amino Transf (AST/SGOT) 33 Alanine Aminotransferase (ALT/SGPT) 44 Alkaline Phosphatase 109 Total Protein 6.9 Albumin 3.7 Globulin 3.20 Albumin/Globulin Ratio 1.15 Medications Current Medications Amlodipine Besylate (Norvasc) 5 mg DAILY PO Last administered on 11/23/16 09:10 ; Admin Dose 5 MG; Start 11/16/16 at 09:00 Finasteride (Proscar) 5 mg DAILY PO Last administered on 11/23/16 09:09; Admin Dose 5 MG; Start 11/16/16 at 09:00 Pantoprazole (Protonix Tab) 40 mg DAILY@06 PO Last administered on 11/23/16 06: 23; Admin Dose 40 MG; Start 11/16/16 at 06:00 Niacin (Niacin) 500 mg DAILY PO Last administered on 11/23/16 09:09; Admin Dose 500 MG; Start 11/16/16 at 09:00 Fish Oil (Fish Oil) 1,000 mg DAILY PO Last administered on 11/23/16 09:09; Admin Dose 1,000 MG; Start 11/16/16 at 09:00 Acetaminophen (Tylenol Tab) 650 mg Q4H PRN PO PAIN AND OR ELEVATED TEMP; Start 11/15/16 at 23:45 Allopurinol (Zyloprim) 100 mg BID PO Last administered on 11/23/16 09:09; Admin Dose 100 MG; Start 11/16/16 at 09:00 Aspirin (Halfprin) 81 mg DAILY PO Last administered on 11/23/16 09:10; Admin Dose 81 MG; Start 11/16/16 at 09:00 Atorvastatin Calcium (Lipitor) 40 mg DAILY@21 PO Last administered on 11/22/16 20:52; Admin Dose 40 MG; Start 11/16/16 at 21:00 Clopidogrel Bisulfate (plaVIX) 75 mg DAILY PO Last administered on 11/23/16 09: 09; Admin Dose 75 MG; Start 11/16/16 at 09:00 Docusate Sodium (Colace) 100 mg BID PO Last administered on 11/23/16 09:10; Admin Dose 100 MG; Start 11/16/16 at 09:00 Senna (Senokot) 1 tab HS PO Last administered on 11/22/16 20:52; Admin Dose 1 TAB; Start 11/16/16 at 21:00 Bisacodyl (Dulcolax Supp) 10 mg DAILY PRN [place] CONSTIPATION; Start 11/15/16 at 23 :45 Magnesium Hydroxide (Milk Of Mag) 30 ml BID PRN PO CONSTIPATION; Start at 23:45 Lactulose (Enulose) 20 gm DAILY PRN PO CONSTIPATION; Start 11/15/16 at 23:45 Losartan Potassium (Cozaar) 50 mg DAILY PO Last administered on 11/23/16 09:10 ; Admin Dose 50 MG; Start 11/22/16 at 09:00 Assessment/Plan Additional Assessment/Plan Rehab- 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 Excellent progress, anticipate home Monday Hemianopsia. Dysphagia- dysphagia diet Hypertension. BPH. LONNIE SYLVESTER MD Nov 23, 2016 11:07
--- NOTE | 2016-11-23 16:50 | CONS ---
Date/Time of Note Date/Time of Note DATE: 11/23/16 TIME: 16:49 Consult Date/Type/Reason Admit Date/Time Nov 15, 2016 at 22:00 Type of Consultation: Pulm Subjective Comfortable, no new events. Objective Vital Signs Date Time Temp Pulse Resp B/P Pulse Ox O2 Delivery O2 Flow Rate FiO2 11/23/16 08:00 98.1 77 18 154/68 96 11/20/16 09:16 Room Air 11/19/16 09:59 2.0 Intake and Output 11/22/16 11/22/16 11/23/16 15:00 23:00 07:00 Intake Total 800 ml 400 ml 100 ml Balance 800 ml 400 ml 100 ml Exam comfortable mmm PEERL cvs s1s2 rs clear bilaterally abdo soft nt bs ext no cy cl óscar Results/Medications Result Diagram: 11/22/16 0546 11/23/16 0630 Results 24 hrs Laboratory Tests Test 11/23/16 06:30 Sodium Level 139 Potassium Level 3.3 L Chloride Level 105 Carbon Dioxide Level 25 Anion Gap 12 Blood Urea Nitrogen 12 Creatinine 0.60 L Glucose Level 97 Calcium Level 9.0 Magnesium Level 2.0 Total Bilirubin 0.8 Direct Bilirubin 0.00 Indirect Bilirubin 0.8 Aspartate Amino Transf (AST/SGOT) 33 Alanine Aminotransferase (ALT/SGPT) 44 Alkaline Phosphatase 109 Total Protein 6.9 Albumin 3.7 Globulin 3.20 Albumin/Globulin Ratio 1.15 Medications Current Medications Amlodipine Besylate (Norvasc) 5 mg DAILY PO Last administered on 11/23/16 09:10 ; Admin Dose 5 MG; Start 11/16/16 at 09:00 Finasteride (Proscar) 5 mg DAILY PO Last administered on 11/23/16 09:09; Admin Dose 5 MG; Start 11/16/16 at 09:00 Pantoprazole (Protonix Tab) 40 mg DAILY@06 PO Last administered on 11/23/16 06: 23; Admin Dose 40 MG; Start 11/16/16 at 06:00 Niacin (Niacin) 500 mg DAILY PO Last administered on 11/23/16 09:09; Admin Dose 500 MG; Start 11/16/16 at 09:00 Fish Oil (Fish Oil) 1,000 mg DAILY PO Last administered on 11/23/16 09:09; Admin Dose 1,000 MG; Start 11/16/16 at 09:00 Acetaminophen (Tylenol Tab) 650 mg Q4H PRN PO PAIN AND OR ELEVATED TEMP; Start 11/15/16 at 23:45 Allopurinol (Zyloprim) 100 mg BID PO Last administered on 11/23/16 09:09; Admin Dose 100 MG; Start 11/16/16 at 09:00 Aspirin (Halfprin) 81 mg DAILY PO Last administered on 11/23/16 09:10; Admin Dose 81 MG; Start 11/16/16 at 09:00 Atorvastatin Calcium (Lipitor) 40 mg DAILY@21 PO Last administered on 11/22/16 20:52; Admin Dose 40 MG; Start 11/16/16 at 21:00 Clopidogrel Bisulfate (plaVIX) 75 mg DAILY PO Last administered on 11/23/16 09: 09; Admin Dose 75 MG; Start 11/16/16 at 09:00 Docusate Sodium (Colace) 100 mg BID PO Last administered on 11/23/16 09:10; Admin Dose 100 MG; Start 11/16/16 at 09:00 Senna (Senokot) 1 tab HS PO Last administered on 11/22/16 20:52; Admin Dose 1 TAB; Start 11/16/16 at 21:00 Bisacodyl (Dulcolax Supp) 10 mg DAILY PRN [place] CONSTIPATION; Start 11/15/16 at 23 :45 Magnesium Hydroxide (Milk Of Mag) 30 ml BID PRN PO CONSTIPATION; Start at 23:45 Lactulose (Enulose) 20 gm DAILY PRN PO CONSTIPATION; Start 11/15/16 at 23:45 Losartan Potassium (Cozaar) 50 mg DAILY PO Last administered on 11/23/16 09:10 ; Admin Dose 50 MG; Start 11/22/16 at 09:00 Assessment/Plan Chief Complaint/Hosp Course Assessment and plan. 1. CVA status post TPA -Continue aspirin, Plavix(dual antiplatelet for 3 months followed by Plavix indefinite) and statin 2. Hypertension -On Norvasc 3.BPH: - On finasteride ST recs repeat labs in am. Problems: KHANG GALINDO MD, FCCP Nov 23, 2016 16:50
[2016-11-23 19:45] VITALS: BP 123/63; PULSE 60; RESP 18
[2016-11-23] MEDS: SENNA TAB PO SCH (20:55)
[2016-11-23] MEDS: ATORVASTATIN 40 MG TAB PO SCH (20:55)
[2016-11-24] MEDS: LEVOTHYROXINE 88 MCG TAB PO SCH (06:19)
[2016-11-24] MEDS: PANTOPRAZOLE (EC) 40 MG TAB PO SCH (06:19)
--- NOTE | 2016-11-24 06:31 | PN ---
DATE: 11/23/2016 PSYCHOLOGICAL PROGRESS NOTE: This is a follow-up on the patient that was seen last week. The patient was seen up in his wheelchair. The patient felt that he has been making progress and feels stronger. The patient was able to move his right hand and arm much better than he could last week. The patient is optimistic that he can continue to make progress and try to return to his previous level of functioning. The patient is still frustrated about the fact that he had a stroke but is working very hard to get himself to a point where he can function as well as he can so that he can return home. I worked with the patient to try to increase his level of mood. The patient was receptive, and felt that his mood was increasing because he was getting better. Dictated By: Kiko Chen, PHD /[email or web address] /Document#: [id number]
[2016-11-24 07:30] VITALS: BP 134/54; RESP 20
--- NOTE | 2016-11-24 08:24 | CONS ---
Date/Time of Note Date/Time of Note DATE: 11/24/16 TIME: 08:23 Consult Date/Type/Reason Admit Date/Time Nov 15, 2016 at 22:00 Type of Consultation: card Subjective CARDIOLOGY FOLLOW UP NOTE: Discussed with staff and nephew. pt is in rehab now he denies any chest pain or pressure no palpitation to me. He still has weakness and poor coordination of mostly his right arm. but is able to cooperate with PT. he is motivated to exercise. OBJECTIVE: General: no acute distress HEENT: NC/AT. pupils are equal. round. NECK: NO JVD. no stridor. CV: RRR. systolic murmur; no gallop or rubs. PULM: no wheezing or rhonchi. GI: SOFT, NT, ND, no rebound or guarding Extremity: trace B/L LE edema. no clubbing. neuro: awake and alert, OX3. + right arm weakness with poor balance/ control Psych: calm and pleasant Objective Vital Signs Date Time Temp Pulse Resp B/P Pulse Ox O2 Delivery O2 Flow Rate FiO2 11/23/16 19:45 97.4 60 18 123/63 99 Room Air Intake and Output 11/23/16 11/23/16 11/24/16 15:00 23:00 07:00 Intake Total 720 ml 360 ml Output Total 3 ml Balance 717 ml 360 ml Results/Medications Result Diagram: 11/22/16 0546 11/23/16 0630 Medications Current Medications Amlodipine Besylate (Norvasc) 5 mg DAILY PO Last administered on 11/23/16 09:10 ; Admin Dose 5 MG; Start 11/16/16 at 09:00 Finasteride (Proscar) 5 mg DAILY PO Last administered on 11/23/16 09:09; Admin Dose 5 MG; Start 11/16/16 at 09:00 Pantoprazole (Protonix Tab) 40 mg DAILY@06 PO Last administered on 11/24/16 06: 19; Admin Dose 40 MG; Start 11/16/16 at 06:00 Niacin (Niacin) 500 mg DAILY PO Last administered on 11/23/16 09:09; Admin Dose 500 MG; Start 11/16/16 at 09:00 Fish Oil (Fish Oil) 1,000 mg DAILY PO Last administered on 11/23/16 09:09; Admin Dose 1,000 MG; Start 11/16/16 at 09:00 Acetaminophen (Tylenol Tab) 650 mg Q4H PRN PO PAIN AND OR ELEVATED TEMP; Start 11/15/16 at 23:45 Allopurinol (Zyloprim) 100 mg BID PO Last administered on 11/23/16 20:55; Admin Dose 100 MG; Start 11/16/16 at 09:00 Aspirin (Halfprin) 81 mg DAILY PO Last administered on 11/23/16 09:10; Admin Dose 81 MG; Start 11/16/16 at 09:00 Atorvastatin Calcium (Lipitor) 40 mg DAILY@21 PO Last administered on 11/23/16 20:55; Admin Dose 40 MG; Start 11/16/16 at 21:00 Clopidogrel Bisulfate (plaVIX) 75 mg DAILY PO Last administered on 11/23/16 09: 09; Admin Dose 75 MG; Start 11/16/16 at 09:00 Docusate Sodium (Colace) 100 mg BID PO Last administered on 11/23/16 20:55; Admin Dose 100 MG; Start 11/16/16 at 09:00 Senna (Senokot) 1 tab HS PO Last administered on 11/23/16 20:55; Admin Dose 1 TAB; Start 11/16/16 at 21:00 Bisacodyl (Dulcolax Supp) 10 mg DAILY PRN [place] CONSTIPATION; Start 11/15/16 at 23 :45 Magnesium Hydroxide (Milk Of Mag) 30 ml BID PRN PO CONSTIPATION; Start at 23:45 Lactulose (Enulose) 20 gm DAILY PRN PO CONSTIPATION; Start 11/15/16 at 23:45 Losartan Potassium (Cozaar) 50 mg DAILY PO Last administered on 11/23/16 09:10 ; Admin Dose 50 MG; Start 11/22/16 at 09:00 Assessment/Plan Chief Complaint/Hosp Course 1. CVA: S/P t-PA 2. HTN: stable now 3. severe PAD 4. hypo K Cont PT f/u with neurology rec. ASA plavix replace lytes prn CONT losartan for better BP control now. Giacomo Salazar MD FAC Problems: GIACOMO SALAZAR MD Nov 24, 2016 08:24
[2016-11-24] MEDS: NIACIN 500 MG TAB PO SCH (08:51)
[2016-11-24] MEDS: FISH OIL 1,000 MG CAP PO SCH (08:52)
[2016-11-24] MEDS: LOSARTAN 50 MG TAB PO SCH (08:52)
[2016-11-24] MEDS: ALLOPURINOL 100 MG TAB PO SCH ×2 (08:52→20:28)
[2016-11-24] MEDS: CLOPIDOGREL 75 MG TAB PO SCH (08:52)
[2016-11-24] MEDS: DOCUSATE SODIUM 100 MG CAP PO SCH ×2 (08:52→20:28)
[2016-11-24] MEDS: ASPIRIN (EC) 81 MG TAB PO SCH (08:52)
[2016-11-24] MEDS: FINASTERIDE 5 MG TAB PO SCH (08:52)
[2016-11-24] MEDS: AMLODIPINE 5 MG TAB PO SCH (08:53)
--- NOTE | 2016-11-24 11:44 | CONS ---
Date/Time of Note Date/Time of Note DATE: 11/24/16 TIME: 11:43 Consult Date/Type/Reason Admit Date/Time Nov 15, 2016 at 22:00 Type of Consultation: Pulm Subjective remains stable. Objective Vital Signs Date Time Temp Pulse Resp B/P Pulse Ox O2 Delivery O2 Flow Rate FiO2 11/24/16 07:30 98.1 76 20 134/54 97 11/23/16 19:45 Room Air Intake and Output 11/23/16 11/23/16 11/24/16 15:00 23:00 07:00 Intake Total 720 ml 360 ml Output Total 3 ml Balance 717 ml 360 ml Exam comfortable mmm PEERL cvs s1s2 rs clear bilaterally abdo soft nt bs ext no cy cl óscar Results/Medications Result Diagram: 11/22/16 0546 11/23/16 0630 Medications Current Medications Amlodipine Besylate (Norvasc) 5 mg DAILY PO Last administered on 11/24/16 08:53 ; Admin Dose 5 MG; Start 11/16/16 at 09:00 Finasteride (Proscar) 5 mg DAILY PO Last administered on 11/24/16 08:52; Admin Dose 5 MG; Start 11/16/16 at 09:00 Pantoprazole (Protonix Tab) 40 mg DAILY@06 PO Last administered on 11/24/16 06: 19; Admin Dose 40 MG; Start 11/16/16 at 06:00 Niacin (Niacin) 500 mg DAILY PO Last administered on 11/24/16 08:51; Admin Dose 500 MG; Start 11/16/16 at 09:00 Fish Oil (Fish Oil) 1,000 mg DAILY PO Last administered on 11/24/16 08:52; Admin Dose 1,000 MG; Start 11/16/16 at 09:00 Acetaminophen (Tylenol Tab) 650 mg Q4H PRN PO PAIN AND OR ELEVATED TEMP; Start 11/15/16 at 23:45 Allopurinol (Zyloprim) 100 mg BID PO Last administered on 11/24/16 08:52; Admin Dose 100 MG; Start 11/16/16 at 09:00 Aspirin (Halfprin) 81 mg DAILY PO Last administered on 11/24/16 08:52; Admin Dose 81 MG; Start 11/16/16 at 09:00 Atorvastatin Calcium (Lipitor) 40 mg DAILY@21 PO Last administered on 11/23/16 20:55; Admin Dose 40 MG; Start 11/16/16 at 21:00 Clopidogrel Bisulfate (plaVIX) 75 mg DAILY PO Last administered on 11/24/16 08: 52; Admin Dose 75 MG; Start 11/16/16 at 09:00 Docusate Sodium (Colace) 100 mg BID PO Last administered on 11/24/16 08:52; Admin Dose 100 MG; Start 11/16/16 at 09:00 Senna (Senokot) 1 tab HS PO Last administered on 11/23/16 20:55; Admin Dose 1 TAB; Start 11/16/16 at 21:00 Bisacodyl (Dulcolax Supp) 10 mg DAILY PRN [place] CONSTIPATION; Start 11/15/16 at 23 :45 Magnesium Hydroxide (Milk Of Mag) 30 ml BID PRN PO CONSTIPATION; Start at 23:45 Lactulose (Enulose) 20 gm DAILY PRN PO CONSTIPATION; Start 11/15/16 at 23:45 Losartan Potassium (Cozaar) 50 mg DAILY PO Last administered on 11/24/16 08:52 ; Admin Dose 50 MG; Start 11/22/16 at 09:00 Assessment/Plan Chief Complaint/Hosp Course Assessment and plan. 1. CVA status post TPA -Continue aspirin, Plavix(dual antiplatelet for 3 months followed by Plavix indefinite) and statin 2. Hypertension -On Norvasc 3.BPH: - On finasteride ST recs repeat labs. Problems: KHANG GALIDNO MD, [facility] Nov 24, 2016 11:44
--- NOTE | 2016-11-24 11:51 | CONS ---
Date/Time of Note Date/Time of Note DATE: 11/24/16 TIME: 11:51 Consult Date/Type/Reason Admit Date/Time Nov 15, 2016 at 22:00 Type of Consultation: Pulm Subjective In good spirits Objective pulm-cta abd-soft sba ambulation Vital Signs Date Time Temp Pulse Resp B/P Pulse Ox O2 Delivery O2 Flow Rate FiO2 11/24/16 07:30 98.1 76 20 134/54 97 11/23/16 19:45 Room Air Intake and Output 11/23/16 11/23/16 11/24/16 15:00 23:00 07:00 Intake Total 720 ml 360 ml Output Total 3 ml Balance 717 ml 360 ml Results/Medications Result Diagram: 11/22/16 0546 11/23/16 0630 Medications Current Medications Amlodipine Besylate (Norvasc) 5 mg DAILY PO Last administered on 11/24/16 08:53 ; Admin Dose 5 MG; Start 11/16/16 at 09:00 Finasteride (Proscar) 5 mg DAILY PO Last administered on 11/24/16 08:52; Admin Dose 5 MG; Start 11/16/16 at 09:00 Pantoprazole (Protonix Tab) 40 mg DAILY@06 PO Last administered on 11/24/16 06: 19; Admin Dose 40 MG; Start 11/16/16 at 06:00 Niacin (Niacin) 500 mg DAILY PO Last administered on 11/24/16 08:51; Admin Dose 500 MG; Start 11/16/16 at 09:00 Fish Oil (Fish Oil) 1,000 mg DAILY PO Last administered on 11/24/16 08:52; Admin Dose 1,000 MG; Start 11/16/16 at 09:00 Acetaminophen (Tylenol Tab) 650 mg Q4H PRN PO PAIN AND OR ELEVATED TEMP; Start 11/15/16 at 23:45 Allopurinol (Zyloprim) 100 mg BID PO Last administered on 11/24/16 08:52; Admin Dose 100 MG; Start 11/16/16 at 09:00 Aspirin (Halfprin) 81 mg DAILY PO Last administered on 11/24/16 08:52; Admin Dose 81 MG; Start 11/16/16 at 09:00 Atorvastatin Calcium (Lipitor) 40 mg DAILY@21 PO Last administered on 11/23/16 20:55; Admin Dose 40 MG; Start 11/16/16 at 21:00 Clopidogrel Bisulfate (plaVIX) 75 mg DAILY PO Last administered on 11/24/16 08: 52; Admin Dose 75 MG; Start 11/16/16 at 09:00 Docusate Sodium (Colace) 100 mg BID PO Last administered on 11/24/16 08:52; Admin Dose 100 MG; Start 11/16/16 at 09:00 Senna (Senokot) 1 tab HS PO Last administered on 11/23/16 20:55; Admin Dose 1 TAB; Start 11/16/16 at 21:00 Bisacodyl (Dulcolax Supp) 10 mg DAILY PRN [place] CONSTIPATION; Start 11/15/16 at 23 :45 Magnesium Hydroxide (Milk Of Mag) 30 ml BID PRN PO CONSTIPATION; Start at 23:45 Lactulose (Enulose) 20 gm DAILY PRN PO CONSTIPATION; Start 11/15/16 at 23:45 Losartan Potassium (Cozaar) 50 mg DAILY PO Last administered on 11/24/16 08:52 ; Admin Dose 50 MG; Start 11/22/16 at 09:00 Assessment/Plan Additional Assessment/Plan Rehab- 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 Excellent progress, anticipate home tomorrow Hemianopsia. Dysphagia- dysphagia diet Hypertension. BPH. LONNIE SYLVESTER MD Nov 24, 2016 11:51
[2016-11-24 14:00] VITALS: BP 103/56; RESP 20
[2016-11-24 20:00] VITALS: BP 127/62; RESP 18
[2016-11-24] MEDS: SENNA TAB PO SCH (20:28)
[2016-11-24] MEDS: ATORVASTATIN 40 MG TAB PO SCH (20:28)
[2016-11-25 02:00] VITALS: BP 131/65; RESP 18
[2016-11-25] MEDS: PANTOPRAZOLE (EC) 40 MG TAB PO SCH (06:03)
[2016-11-25] MEDS: LEVOTHYROXINE 88 MCG TAB PO SCH (06:03)
[2016-11-25 07:30] VITALS: BP 146/65; RESP 20
[2016-11-25 08:21] LABS: ALBUMIN 3.3 g/dl (3.3-4.9); ALBUMIN/GLOBULIN RATIO 1.13; BILIRUBIN,INDIRECT 0.7 mg/dl (0-1.1); BILIRUBIN,TOTAL 0.7 mg/dl (0.2-1.3); CALCIUM 8.6 mg/dl (8.4-10.2); CREATININE 0.6 mg/dl (0.61-1.24); MAGNESIUM 1.9 mg/dl (1.7-2.5); POTASSIUM 3.1 mmol/L (3.5-5.1); TOTAL PROTEIN 6.2 g/dl (6.1-8.1)
[2016-11-25] MEDS: ALLOPURINOL 100 MG TAB PO SCH (08:46)
[2016-11-25] MEDS: ASPIRIN (EC) 81 MG TAB PO SCH (08:46)
[2016-11-25] MEDS: FINASTERIDE 5 MG TAB PO SCH (08:46)
[2016-11-25] MEDS: DOCUSATE SODIUM 100 MG CAP PO SCH (08:46)
[2016-11-25] MEDS: NIACIN 500 MG TAB PO SCH (08:46)
[2016-11-25] MEDS: CLOPIDOGREL 75 MG TAB PO SCH (08:47)
[2016-11-25] MEDS: AMLODIPINE 5 MG TAB PO SCH (08:47)
[2016-11-25] MEDS: LOSARTAN 50 MG TAB PO SCH (08:47)
[2016-11-25] MEDS: FISH OIL 1,000 MG CAP PO SCH (08:47)
--- NOTE | 2016-11-25 10:52 | DS ---
Date/Time of Note Date/Time of Note DATE: 11/25/16 TIME: 10:51 Discharge Summary Admission/Discharge Info Admit Date/Time Nov 15, 2016 at 22:00 Discharge Date/Time Discharge Diagnosis 1. Left thalamic occipital lobe parahippocampal gyrus infarct, CVA with right- sided weakness. 2. Dysphagia. 3. Hypertension. 4. BPH. 5. Improvements in self-care, mobility and cognition. Patient Condition: Good Hospital Course Patient was admitted for comprehensive interdisciplinary acute rehabilitation. Patient made steady functional gains and improved from a mod level to a Supervised level for self care and mobility, including ambulating over 150 feet with the use of a front wheeled walker. Patient is being discharged home with recommendations for home health PT and OT follow up. DME recommendations: FWW; BSC; Shower Chair Patient will follow up with PMD upon DC. Home Meds Active Scripts Amlodipine Besylate* (Norvasc*) 5 Mg Tablet, 5 MG PO DAILY, #60 TAB Prov:LANE WEAVER 11/15/16 Clopidogrel Bisulfate (Clopidogrel) 75 Mg Tablet, 75 MG PO DAILY, #30 TAB Prov:LANE WEAVER 11/15/16 Reported Medications Levothyroxine Sodium* (Levothyroxine Sodium*) 88 Mcg Tablet, 88 MCG PO BEFORE BREAKFAST, #30 TAB 11/13/16 Atorvastatin* (Atorvastatin*) 40 Mg Tablet, 40 MG PO QHS, #30 TAB 11/13/16 Finasteride* (Finasteride*) 5 Mg Tablet, 5 MG PO DAILY, TAB 11/13/16 Allopurinol* (Allopurinol*) 100 Mg Tablet, 100 MG PO BID, TAB 11/13/16 [place]-3 Fatty Acids/Fish Oil (Fish Oil Conc 1,000 mg Softgel) 1 Each Capsule, 1 EACH PO DAILY, CAP 11/13/16 Pantoprazole (Protonix) 40 Mg Tabec, 40 MG PO BID, TAB 10/04/16 Niacin* (Niacin*) 500 Mg Tablet, 500 MG PO DAILY, TAB 10/04/16 Aspirin Ec (Aspir 81) 81 Mg Tablet.dr, 81 MG PO DAILY 08/05/11 Primary Care Provider Shanika Mcintosh MD Pending Labs Laboratory Tests Test 11/25/16 06:32 Sodium Level 140mmol/L (135-144) Potassium Level 3.1mmol/L (3.5-5.1) Chloride Level 105mmol/L (97-110) Carbon Dioxide Level 27mmol/L (21-31) Anion Gap 11 (8-16) Blood Urea Nitrogen 8mg/dl (7-20) Creatinine 0.60mg/dl (0.61-1.24) Glucose Level 88mg/dl (70-220) Calcium Level 8.6mg/dl (8.4-10.2) Magnesium Level 1.9mg/dl (1.7-2.5) Total Bilirubin 0.7mg/dl (0.2-1.3) Direct Bilirubin 0.00mg/dl (0.00-0.20) Indirect Bilirubin 0.7mg/dl (0-1.1) Aspartate Amino Transf (AST/SGOT) 26IU/L (15-46) Alanine Aminotransferase (ALT/SGPT) 31IU/L (13-69) Alkaline Phosphatase 93IU/L (42-121) Total Protein 6.2g/dl (6.1-8.1) Albumin 3.3g/dl (3.3-4.9) Globulin 2.90g/dl (1.3-3.2) Albumin/Globulin Ratio 1.13 LONNIE SYLVESTER MD Nov 25, 2016 10:52
== END 2016-11-25 11:45 | disposition home health service (06) | DRG 57 ==
LOC: VRC 22:00 → UNDODISIN 22:05
PROVIDERS: ADMIT Physical Medicine & Rehabilitation; ATTEND Internal Medicine Pulmonary Disease
DX: I69.351 Hemiplegia and hemiparesis following cerebral infarction affecting right dominant side (principal); H53.47 Heteronymous bilateral field defects; F01.50 Vascular dementia, unspecified severity, without behavioral disturbance, psychotic disturbance, mood disturbance, and anxiety; I10 Essential (primary) hypertension; R13.10 Dysphagia, unspecified; N40.0 Benign prostatic hyperplasia without lower urinary tract symptoms; G31.84 Mild cognitive impairment of uncertain or unknown etiology; Z74.09 Other reduced mobility; F06.31 Mood disorder due to known physiological condition with depressive features
CPT/HCPCS: 74230; 80048; 80053; 81001; 83735; 84100; 85025; 87086; 92507; 92523; 92526; 92610; 92611; 97110; 97112; 97116; 97150; 97163; 97167; 97530; 97535